=== PATIENT | male | born 1950 | race Caucasian/White ===

== ENCOUNTER 2016-05-13 17:57 | Observation (INO) | payer MEDICARE, OTHER ==
[2016-05-13] MEDS ORDERED: ASPIRIN 81 MG CHEWABLE TABLET PO ONE (18:51)
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
[2016-05-13 19:11] LABS: BASO % 1.1 % (0-6); EOS % 4.6 % (0-6); GRAN % 58.5 % (47-80); HEMATOCRIT 39.7 % (42.0-52.0); HEMOGLOBIN 12.6 gm/dl (14.0-18.0); LYMPH % 21.9 % (16-45); MEAN CELL VOLUME 77.5 fl (81-97); MEAN CORPUSCULAR HEMOGLOBIN 24.6 pg (27-33); MEAN CORPUSCULAR HGB CONC 31.7 g/dl (32-36); MEAN PLATELET VOLUME 10.5 fl (7.4-10.4); MONO % 13.9 % (0-9); PLATELET COUNT 356 K/uL (130-400); RED BLOOD COUNT 5.12 M/uL (4.40-5.70); RED CELL DISTRIBUTION WIDTH 17.5 % (11.5-14.5); WHITE BLOOD COUNT W/O DIFF 9.6 K/uL (4.2-12.2)
--- NOTE | 2016-05-13 19:20 | Emergency Department Record ---
History of Present Illness - General Chief Complaint: Chest Pain Stated Complaint: CRAMPS IN CHEST Time Seen by Provider: 05/13/16 18:30 Source: Patient Mode of Arrival: Ambulatory Limitations: No limitations - History of Present Illness Initial Comments: This patient arrived about 20 minutes prior to my shift beginning at 7 p.m. and was turned over to me by the day shift physician at shift change. The patient reports to me that he has a pulsating left anterior lower chest pain which is non-radiating and intermittent. He has had this on and off over the past several days, less than a week. Today is has occurred more frequently, lasted longer, and he is now more concerned about what is causing it . He as no nausea, diaphoresis, SOB, or lightheadedness/dizziness associated with it. Risks include elevated cholesterol, and a father who of an [place] in his early 60's. 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 He currently has no symptoms. He has never had an [place], PE, DVT, CVA or heart cath. He has had numerous stress tests, the most recent of which was more than a few years ago. MD Complaint: Chest pain Onset/Timin -: Days(s) Onset: During rest Pain Location: Left chest Pain Radiation: None Severity: Moderate Quality: Other Consistency: Intermittent Improves With: Nothing Worsens With: Nothing Treatments Prior to Arrival: None - Related Data Home Medications Medication Instructions Recorded Confirmed Last Taken Albuterol Sulfate [Proair Hfa] 1 - 2 puff IH DAILY PRN inhaler 06/10/15 Unknown Omeprazole 20 mg PO QAM 06/10/15 05/13/16 05/13/16 Previous Rx's Medication Instructions Recorded Albuterol Sulfate 0.083% [Neb] 2.5 mg INH RESP.Q4H.WA PRN #0 10/26/15 nebulization solution Fluticasone/Salmeterol 100/50 1 puff INH BID disk 10/26/15 [Advair 100/50] Allergies Allergy/AdvReac Type Severity Reaction Status Date / Time meloxicam [From Mobic] AdvReac Severe internal Verified 05/13/16 18:12 bleeding dicyclomine HCl [From Bentyl] AdvReac Intermediate nausea and Verified 05/13/16 18:12 vomiting levofloxacin [From Levaquin] AdvReac Intermediate nausea and Verified 05/13/16 18:12 vomiting propoxyphene napsylate AdvReac Intermediate nausea and Verified 05/13/16 18:12 [From Darvocet-N] vomiting simvastatin [From Zocor] AdvReac Intermediate muscle Verified 05/13/16 18:12 aches Travel Screening - Travel/Exposure Within Last 30 Days Have you traveled within the last 30 days?: No Review of Systems Constitutional: Reports: As per HPI. Denies: Chills, Fever, Malaise, Night sweats, Weakness, Weight change Eyes: Reports: As per HPI. Denies: Eye discharge, Eye pain, Photophobia, Vision change ENT: Reports: As per HPI. Denies: Congestion, Dental pain, Ear pain, Epistaxis , Hearing loss, Throat pain Respiratory: Reports: As per HPI. Denies: Cough, Dyspnea, Hemoptysis, Stridor, Wheezes Cardiovascular: Reports: As per HPI. Denies: Arrhythmia, Chest pain, Dyspnea on exertion, Edema, Murmurs, Orthopnea, Palpitations, Paroxysmal nocturnal dyspnea, Rheumatic Fever, Syncope Endocrine: Reports: As per HPI. Denies: Fatigue, Heat or cold intolerance, Polydipsia, Polyuria Gastrointestinal: Reports: As per HPI. Denies: Abdominal pain, Constipation, Diarrhea, Hematemesis, Hematochezia, Melena, Nausea, Vomiting Genitourinary: Reports: As per HPI. Denies: Dysuria, Frequency, Hematuria, Incontinence, Retention, Testicular pain, Testicular mass, Urgency Musculoskeletal: Reports: As per HPI. Denies: Arthralgia, Back pain, Gout, Joint swelling, Myalgia, Neck pain Skin: Reports: As per HPI. Denies: Bruising, Change in color, Change in hair/ nails, Lesions, Pruritus, Rash Neurological: Reports: As per HPI. Denies: Abnormal gait, Confusion, Headache, Numbness, Paresthesias, Seizure, Tingling, Tremors, Vertigo, Weakness Psychiatric: Reports: As per HPI. Denies: Anxiety, Auditory hallucinations, Depression, Homicidal thoughts, Suicidal thoughts, Visual hallucinations Hematological/Lymphatic: Reports: As per HPI. Denies: Anemia, Blood Clots, Easy bleeding, Easy bruising, Swollen glands Past Medical History - SOCIAL HISTORY Smoking Status: Former smoker Alcohol Use: Occassional Drug Use: None - RESPIRATORY Hx Respiratory Disorders: Yes Hx Asthma: Yes Hx COPD: Yes Hx Sleep Apnea: Yes - CARDIOVASCULAR Hx Cardio Disorders: Yes Hx Hypertension: Yes Comment:: high cholesterol - NEURO Hx Neuro Disorders: Yes Hx Dizziness: Yes - GI Hx GI Disorders: Yes Hx Diverticulitis: Yes Hx GI Bleed: Yes (2011/) Hx Reflux: Yes - Hx Genitourinary Disorders: Yes Hx Prostate Problems: Yes - ENDOCRINE Hx Endocrine Disorders: No - MUSCULOSKELETAL Hx Musculoskeletal Disorders: Yes Hx Arthritis: Yes - PSYCH Hx Psych Problems: No Comment:: doesnt like being i confining spaces - HEMATOLOGY/ONCOLOGY Hx Hematology/Oncology Disorders: Yes Hx Blood Transfusions: Yes (2011/) Comment:: pt states hx of internal bleeding Family Medical History Any Significant Family History?: Yes Hx Alcohol Use: Father Hx Diabetes: Mother Hx Heart Disease: Father Hx Liver Disease: Mother, Grandparents *Liver Comment: kendra, bile duct surgery Physical Exam - General General Appearance: Alert, Oriented x3, Cooperative, No acute distress Limitations: No limitations - Head Head exam: Normal inspection - Eye Eye exam: Normal appearance, PERRL Pupils: Normal accommodation - ENT ENT exam: Normal exam, Mucous membranes moist, Normal external ear exam, Normal orophraynx, TM's normal bilaterally Ear exam: Normal external inspection. negative: External canal tenderness Nasal Exam: Normal inspection. negative: Discharge, Sinus tenderness Mouth exam: Normal external inspection, Tongue normal Teeth exam: Normal inspection. negative: Dental caries Throat exam: Normal inspection. negative: Tonsillar erythema, Tonsillar exudate - Neck Neck exam: Normal inspection, Full ROM. negative: Tenderness - Respiratory Respiratory exam: Normal lung sounds bilaterally. negative: Accessory muscle use, Chest wall tenderness, Respiratory distress - Cardiovascular Cardiovascular Exam: Regular rate, Normal rhythm, Normal heart sounds - GI/Abdominal GI/Abdominal exam: Soft, Normal bowel sounds. negative: Tenderness - Rectal Rectal exam: Deferred - exam: Deferred - Extremities Extremities exam: Normal inspection, Full ROM, Normal capillary refill. negative: Calf tenderness, Pedal edema, Tenderness - Back Back exam: Reports: Normal inspection, Full ROM. Denies: Muscle spasm, Rash noted, Tenderness - Neurological Neurological exam: Alert, Normal gait, Oriented X3, Reflexes normal - Psychiatric Psychiatric exam: Normal affect, Normal mood - Skin Skin exam: Dry, Intact, Normal color, Warm Course Vital Signs 05/13/16 18:05 Temperature 98.1 F Pulse Rate 85 Respiratory 18 Rate Blood Pressure 157/92 Pulse Ox 99 - Reevaluation(s) Reevaluation #1: The patient has had not further symptoms. His labs work is all normal except for a Hg of 12.6 which the patient sates is chronic as he has been told he is anemic. He states he would be able to perform a stress test on a treadmill if needed. He understands he is to get his blood draw for repeat enzymes repeated in 4 hours. 05/13/16 20:01 05/13/16 20:02 Reevaluation #2: The patient spoke on the phone with his . They both prefer he get a stress test in the morning since [facility] is here. Will admit patient to / Dyan/ Yudelka with [facility] consult for morning. The patient states he had one episode of "pressure" which is fluttery and lasted about 2-3 seconds. Nurse earlier noted that these symptoms were NOT associated with an arrhythmia on the monitor. 05/13/16 21:29 05/13/16 21:34 Medical Decision Making - Management Options MDM Management: Additional Work-up Planned (e.g. ADM/Transfer/OP Study) - Data Complexity MDM Data: Labs Ordered and/or Reviewed, X-Ray Ordered and/or Reviewed (CXR: No acute abnormality per radiologist.), EKG Ordered and/or Reviewed - Lab Data Result diagrams: 05/13/16 19:07 05/13/16 19:07 Lab Results 05/13/16 Range/Units 19:07 WBC 9.6 (4.2-12.2) K/uL RBC 5.12 (4.40-5.70) M/uL Hgb 12.6 L (14.0-18.0) gm/dl Hct 39.7 L (42.0-52.0) % MCV 77.5 L (81-97) fl MCH 24.6 L (27-33) pg MCHC 31.7 L (32-36) g/dl RDW 17.5 H (11.5-14.5) % Plt Count 356 (130-400) K/uL MPV 10.5 H (7.4-10.4) fl Gran % 58.5 (47-80) % Lymphocytes % 21.9 (16-45) % Monocytes % 13.9 H (0-9) % Eosinophils % 4.6 (0-6) % Basophils % 1.1 (0-6) % - EKG Data -: EKG Interpreted by Me EKG: No Acute Changes Disposition Disposition: Admit Clinical Impression: Chest pain Qualifiers: Chest pain type: unspecified Qualified Code(s): R07.9 - Chest pain, unspecified Disposition: Still a Patient at [facility] Decision to Admit: Admit from ER Decision to Admit Date: 05/13/16 Decision to Admit Time: 21:32 Accepting Physician: /Yudelka Condition: (1) Good Forms: Patient Portal Access
[2016-05-13 19:23] LABS: ANION GAP 13.9 (7-16); BLOOD UREA NITROGEN 15 mg/dL (9-20); CARBON DIOXIDE 25.1 mmol/L (22-30); CREATINE PHOSPHOKINASE 100 U/L (55-170); CREATININE 0.8 mg/dL (0.66-1.25); EST GLOMERULAR FILTRATION RATE > 60 ml/min; GLUCOSE,RANDOM 92 mg/dL (70-110)
[2016-05-13 19:35] LABS: CKMB 1.7 ug/L (0-6); TROPONIN I < 0.012 ng/mL (0.00-0.034)
[2016-05-13] MEDS ORDERED: LOVASTATIN 20 MG PO SCH (22:39)
[2016-05-13] MEDS ORDERED: AL HYDROX/MAG HYDROX 30ML UD PO PRN (22:39)
[2016-05-13] MEDS ORDERED: ALBUTEROL SULFATE (0.083%) 2.5 MG/3 ML NEB INH PRN (22:39)
[2016-05-13] MEDS ORDERED: NITROGLYCERIN 0.4MG SL TABLET #25 BTL SL PRN (22:39)
[2016-05-13] MEDS ORDERED: ACETAMINOPHEN 500 MG TABLET PO PRN (22:39)
[2016-05-13] MEDS ORDERED: FLU VAC QS 2016-17 (INPT, 3YR+) 60MCG/0.5ML IM ONE (23:14)
[2016-05-14] MEDS: FLUTICASONE/SALMETEROL 100/50 DISKUS INH SCH ×2 (02:05→06:00)
--- NOTE | 2016-05-14 05:43 | History & Physical ---
History of Present Illness - Date of Service Date of Service for History & Physical: 05/14/16 - History of Present Illness Admitting Diagnosis: Chest pain History of Present Illness: 65yo male with CC of chest pain/fluttering. He has a history of COPD, LICO, GERD , HLD, diverticulosis and diverticulitis, bowel obstruction, and GI bleed 2/2 NSAID use requiring blood transfusion. Patient c/o of chest fluttering. location is mainly on the left of his chest. This has been occurring on and off for a few weeks, though became more noticeable yesterday. No aggravating factors. Does not find this to be associated with exertion or eating. Alleviated on its one. Associated symptoms include generalized muscle cramping. While in the ER VS relatively stable. CBC, CMP stable. TSH 8.03, CE's negative x 2. EKG: sinus rhythm. CXR: NAP. According to ER documentation, patient reported to the nurse one episode of "fluttering" that lasted 2-3 seconds. there were no associated EKG changes on the monitor. Patient preferred to stay for cardiac work up and was admitted for further medical management. This morning, patient is sitting up in bed comfortably. He denies any CP, SOB, ELVA, back/jaw or shoulder pain, cough, lightheadedness, dizziness, abd pain, change in bowel habits, n/v, fever, chills or diaphoresis. Denies h/o GA, CVA or DVT. 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 Previous smoker, quit in his 20s. Father with h/o GA in his 60s. Personal h/o high cholesterol. No previous cardiac work up. PCP: Dr. Iyer Travel Screening - Travel/Exposure Within Last 30 Days Have you traveled within the last 30 days?: No - Travel/Exposure Within Last Year Have you traveled outside the [place] in the last year?: No - Additonal Travel Details Have you been exposed to anyone with a communicable illness?: Yes Exposure Details:: "everyone at work is passing something around" - Travel Symptoms Symptom Screening: None Review of Systems Constitutional: Reports: As per HPI. Denies: Chills, Fever, Malaise, Night sweats, Weakness, Weight change Eyes: Reports: As per HPI. Denies: Eye discharge, Eye pain, Photophobia, Vision change ENT: Reports: As per HPI. Denies: Congestion, Dental pain, Ear pain, Epistaxis , Hearing loss, Throat pain Respiratory: Reports: As per HPI. Denies: Cough, Dyspnea, Hemoptysis, Stridor, Wheezes Cardiovascular: Reports: As per HPI. Denies: Arrhythmia, Chest pain, Dyspnea on exertion, Edema, Murmurs, Orthopnea, Palpitations, Paroxysmal nocturnal dyspnea, Rheumatic Fever, Syncope Endocrine: Reports: As per HPI. Denies: Fatigue, Heat or cold intolerance, Polydipsia, Polyuria Gastrointestinal: Reports: As per HPI. Denies: Abdominal pain, Constipation, Diarrhea, Hematemesis, Hematochezia, Melena, Nausea, Vomiting Genitourinary: Reports: As per HPI. Denies: Dysuria, Frequency, Hematuria, Incontinence, Retention, Testicular pain, Testicular mass, Urgency Musculoskeletal: Reports: As per HPI. Denies: Arthralgia, Back pain, Gout, Joint swelling, Myalgia, Neck pain Skin: Reports: As per HPI. Denies: Bruising, Change in color, Change in hair/ nails, Lesions, Pruritus, Rash Neurological: Reports: As per HPI. Denies: Abnormal gait, Confusion, Headache, Numbness, Paresthesias, Seizure, Tingling, Tremors, Vertigo, Weakness Psychiatric: Reports: As per HPI. Denies: Anxiety, Auditory hallucinations, Depression, Homicidal thoughts, Suicidal thoughts, Visual hallucinations Hematological/Lymphatic: Reports: As per HPI. Denies: Anemia, Blood Clots, Easy bleeding, Easy bruising, Swollen glands Past Medical History - SOCIAL HISTORY Smoking Status: Former smoker - RESPIRATORY Hx Respiratory Disorders: Yes Hx Asthma: Yes Hx COPD: Yes Hx Sleep Apnea: Yes - CARDIOVASCULAR Hx Cardio Disorders: Yes Hx Hypertension: Yes Comment:: high cholesterol - NEURO Hx Neuro Disorders: Yes Hx Dizziness: Yes - GI Hx GI Disorders: Yes Hx Diverticulitis: Yes Hx GI Bleed: Yes (2011 r/t ) Hx Reflux: Yes - Hx Genitourinary Disorders: Yes Hx Prostate Problems: Yes - ENDOCRINE Hx Endocrine Disorders: No - MUSCULOSKELETAL Hx Musculoskeletal Disorders: Yes Hx Arthritis: Yes - PSYCH Hx Psych Problems: No Comment:: doesnt like being i confining spaces - HEMATOLOGY/ONCOLOGY Hx Hematology/Oncology Disorders: Yes Hx Blood Transfusions: Yes (2011 r/t ) Comment:: pt states hx of internal bleeding Family Medical History Any Significant Family History?: Yes Hx Alcohol Use: Father Hx Diabetes: Mother Hx Heart Disease: Father Hx Liver Disease: Mother, Grandparents *Liver Comment: kendra, bile duct surgery H&P Meds/Allergies - Allergies Allergies: Allergies Allergy/AdvReac Type Severity Reaction Status Date / Time meloxicam [From Mobic] AdvReac Severe internal Verified 05/13/16 18:12 bleeding dicyclomine HCl [From Bentyl] AdvReac Intermediate nausea and Verified 05/13/16 18:12 vomiting levofloxacin [From Levaquin] AdvReac Intermediate nausea and Verified 05/13/16 18:12 vomiting propoxyphene napsylate AdvReac Intermediate nausea and Verified 05/13/16 18:12 [From Darvocet-N] vomiting simvastatin [From Zocor] AdvReac Intermediate muscle Verified 05/13/16 18:12 aches - Home Medications Home Medications Medication Instructions Recorded Confirmed Last Taken Albuterol Sulfate [Proair Hfa] 1 - 2 puff IH DAILY PRN inhaler 06/10/15 Unknown Omeprazole 20 mg PO QAM 06/10/15 05/13/16 05/13/16 Previous Rx's Medication Instructions Recorded Albuterol Sulfate 0.083% [Neb] 2.5 mg INH RESP.Q4H.WA PRN #0 10/26/15 nebulization solution Fluticasone/Salmeterol 100/50 1 puff INH BID disk 10/26/15 [Advair 100/50] - Active Medications Active Medications: Current Medications Acetaminophen (Tylenol 500mg Tab) 500 mg PO Q6H PRN PRN Reason: PAIN/TEMP Al Hydroxide/Mg Hydroxide (Maalox) 30 ml PO Q4H PRN PRN Reason: GI UPSET Albuterol Sulfate () 2.5 mg INH RESP.Q4H.WA PRN PRN Reason: DIFFICULTY IN BREATHING Aspirin (Ecotrin (Ec)) 81 mg PO DAILY [facility] Nitroglycerin (Nitrostat 0.4mg) 0.4 mg SL Q5MIN PRN PRN Reason: CHEST PAIN Stop: 05/15/16 22:40 Non-Formulary Medication (Lovastatin [Lovastatin]) 20 mg PO QHS JOSE J Last Admin: 05/14/16 02:06 Dose: Not Given Non-Formulary Medication (Omeprazole [Omeprazole]) 20 mg PO QAM [facility] Fluticasone/Salmeterol (Advair 100/50) 1 puff INH BID [facility] Last Admin: 05/14/16 02:05 Dose: Not Given Physical Exam - Vital Signs Vital Signs: Vital Signs - Last 24 Hrs Temp Pulse Resp BP Pulse Ox 05/14/16 01:32 20 05/13/16 22:35 97.7 F 74 18 142/94 100 - General General Appearance: Alert, Oriented x3, Cooperative, No acute distress Limitations: No limitations - Head Head exam: Normal inspection - Eye Eye exam: Normal appearance, PERRL Pupils: Normal accommodation - ENT ENT exam: Normal exam, Mucous membranes moist, Normal external ear exam, Normal orophraynx, TM's normal bilaterally Ear exam: Normal external inspection. negative: External canal tenderness Nasal Exam: Normal inspection. negative: Discharge, Sinus tenderness Mouth exam: Normal external inspection, Tongue normal Teeth exam: Normal inspection. negative: Dental caries Throat exam: Normal inspection. negative: Tonsillar erythema, Tonsillar exudate - Neck Neck exam: Normal inspection, Full ROM. negative: Tenderness - Respiratory Respiratory exam: Normal lung sounds bilaterally. negative: Accessory muscle use, Chest wall tenderness, Respiratory distress - Cardiovascular Cardiovascular Exam: Regular rate, Normal rhythm, Normal heart sounds - GI/Abdominal GI/Abdominal exam: Soft, Normal bowel sounds. negative: Tenderness - Rectal Rectal exam: Deferred - exam: Deferred - Extremities Extremities exam: Normal inspection, Full ROM, Normal capillary refill. negative: Calf tenderness, Pedal edema, Tenderness - Back Back exam: Reports: Normal inspection, Full ROM. Denies: Muscle spasm, Rash noted, Tenderness - Neurological Neurological exam: Alert, Normal gait, Oriented X3, Reflexes normal - Psychiatric Psychiatric exam: Normal affect, Normal mood - Skin Skin exam: Dry, Intact, Normal color, Warm Results - Labs Result Diagrams: 05/13/16 19:07 05/13/16 19:07 Labs Last 24 Hours: Laboratory Results - last 24 hr 05/13/16 05/13/16 23:00 23:00 CK-MB (CK-2) 1.4 Troponin I < 0.012 VTE H&P Assessment - Risk for VTE Risk for VTE: Yes Risk Level: Low Risk Assessment Date: 05/14/16 Risk Assessment Time: 10:00 VTE Orders Placed or Will Be Placed: No VTE Reason for No Prophylaxis: Not Indicated (patient ambulating the room) Plan - Detailed Diagnosis and Plan (1) Chest pain Current Visit: Yes Status: Acute Qualifiers: Chest pain type: unspecified Qualified Code(s): R07.9 - Chest pain, unspecified Base Code: R07.9 - CHEST PAIN, UNSPECIFIED Comment: 05/14/16: After speaking with patient he denies chest pain. He has been experiencing chest "fluttering" on and off for a few weeks. EKG: sinus rhythma. CXR: NAP. CE's negative x 3. Labs essentially unremarkable aside from elevated TSH. Risk factors include high cholesterol and father's h/o GA in his 60's. Cardoilogy has been consulted to see patient. Plan for ECHO and exercised stress test today. Will continue to monitor for any pain, sob, elva, cough. VS Q4 hours and telemetry ordered. (2) DVT prophylaxis Current Visit: No Status: Acute Base Code: [id number] - Comment: 05/14/16 Patient at low risk with age. patient ambulating the room and I suspect will d/c later today. Anticoagulation appears more of a risk than beneficial at this time. (3) Full code status Current Visit: No Status: Acute Base Code: Z78.9 - OTHER SPECIFIED HEALTH STATUS Comment: 05/14/16: Patient remains full code (4) Elevated TSH Current Visit: Yes Status: Acute Base Code: R94.6 - ABNORMAL RESULTS OF THYROID FUNCTION STUDIES Comment: 05/14/16: TSH elevated at 8.03. Will start him on 50 mcg of levothyroxine and follow up with him regarding this as outpatient.
--- NOTE | 2016-05-14 07:27 | RADIOLOGY REPORT ---
EXAM: CHEST, TWO VIEWS HISTORY: CHEST PAIN AND HEART FLUTTERS. TECHNIQUE: PA and lateral upright views of the chest were obtained. Comparison: Previous abdominal CT scan dated 10/24/15. FINDINGS: The heart is normal in size. The mediastinum and pulmonary vasculature are normal. There are no acute infiltrates or effusions. There is no pneumothorax. Degenerative changes are present within the spine. IMPRESSION: NO ACUTE CHEST PATHOLOGY. JOB NUMBER: [id number] MTDD
[2016-05-14 07:28] LABS: CKMB 1.1 ug/L (0-6); TROPONIN I < 0.012 ng/mL (0.00-0.034)
[2016-05-14] MEDS ORDERED: ASPIRIN 81 MG TABEC PO SCH (10:00)
[2016-05-14] MEDS ORDERED: PANTOPRAZOLE SODIUM 40 MG TABLET PO SCH (10:00)
--- NOTE | 2016-05-14 13:02 | Discharge Summary ---
Providers Discharge Summary Date: 05/14/16 Date of admission: 05/13/16 22:34 Expected Date of Discharge: 05/14/16 Attending physician: ABBY FLORES Primary care physician: ABBY FLORES Physical Exam - Vital Signs Vital Signs: Vital Signs - Last 24 Hrs Temp Pulse Pulse Resp BP Pulse Ox 05/14/16 12:04 90 05/14/16 09:00 94 H 05/14/16 08:00 97.5 F L 61 18 123/77 100 05/14/16 06:42 68 20 98 05/14/16 01:32 20 05/13/16 22:35 97.7 F 74 18 142/94 100 - General General Appearance: Alert, Oriented x3, Cooperative, No acute distress Limitations: No limitations - Head Head exam: Normal inspection - Eye Eye exam: Normal appearance, PERRL Pupils: Normal accommodation - ENT ENT exam: Normal exam, Mucous membranes moist, Normal external ear exam, Normal orophraynx, TM's normal bilaterally Ear exam: Normal external inspection. negative: External canal tenderness Nasal Exam: Normal inspection. negative: Discharge, Sinus tenderness Mouth exam: Normal external inspection, Tongue normal Teeth exam: Normal inspection. negative: Dental caries Throat exam: Normal inspection. negative: Tonsillar erythema, Tonsillar exudate - Neck Neck exam: Normal inspection, Full ROM. negative: Tenderness - Respiratory Respiratory exam: Normal lung sounds bilaterally. negative: Accessory muscle use, Chest wall tenderness, Respiratory distress - Cardiovascular Cardiovascular Exam: Regular rate, Normal rhythm, Normal heart sounds - GI/Abdominal GI/Abdominal exam: Soft, Normal bowel sounds. negative: Tenderness - Rectal Rectal exam: Deferred - exam: Deferred - Extremities Extremities exam: Normal inspection, Full ROM, Normal capillary refill. negative: Calf tenderness, Pedal edema, Tenderness - Back Back exam: Reports: Normal inspection, Full ROM. Denies: Muscle spasm, Rash noted, Tenderness - Neurological Neurological exam: Alert, Normal gait, Oriented X3, Reflexes normal - Psychiatric Psychiatric exam: Normal affect, Normal mood - Skin Skin exam: Dry, Intact, Normal color, Warm Hospitalization - Hospitalization Admission Diagnosis: Chest pain - Problem List/Discharge Diagnosis (1) Chest pain Current Visit: Yes Status: Acute Discharge Diagnosis: Chest pain type: unspecified Qualified Code(s): R07.9 - Chest pain, unspecified Base Code: R07.9 - CHEST PAIN, UNSPECIFIED Comment: 05/14/16: cardiac vs. GI vs. anxiety vs. hormone vs. other? EKG: NSR. CE negative x 3. ECHO: EF of 75%. Unremarkable stress test per Dr. Schmidt. He's set up for 30 day holter monitor on the at 1045 with [employer]. He will see me next week as stated below. he agree's to return in the mean time re any new or worsening symptoms such as CP, sob, elva, weakness, fever or chills. (2) Full code status Current Visit: No Status: Acute Base Code: Z78.9 - OTHER SPECIFIED HEALTH STATUS Comment: 05/14/16: Patient remains full code (3) Elevated TSH Current Visit: Yes Status: Acute Base Code: R94.6 - ABNORMAL RESULTS OF THYROID FUNCTION STUDIES Comment: 05/14/16: TSH elevated at 8.03. Will start him on 50 mcg of levothyroxine and follow up with him regarding this as outpatient. He has a scheduled visit with me Tuesday05/18/16 at 1520. He agree's to return to the ER re any new or worsening symptoms. - Hospitalization Course Hospital Course: 65yo male with CC of chest pain/fluttering. He has a history of COPD, LICO, GERD , HLD, diverticulosis and diverticulitis, bowel obstruction, and GI bleed 2/2 NSAID use requiring blood transfusion. Patient c/o of chest fluttering. location is mainly on the left of his chest. This has been occurring on and off for a few weeks, though became more noticeable yesterday. No aggravating factors. Does not find this to be associated with exertion or eating. Alleviated on its one. Associated symptoms include generalized muscle cramping. While in the ER VS relatively stable. CBC, CMP stable. TSH 8.03, CE's negative x 2. EKG: sinus rhythm. CXR: NAP. According to ER documentation, patient reported to the nurse one episode of "fluttering" that lasted 2-3 seconds. there were no associated EKG changes on the monitor. Patient preferred to stay for cardiac work up and was admitted for further medical management. This morning, patient is sitting up in bed comfortably. He denies any CP, SOB, ELVA, back/jaw or shoulder pain, cough, lightheadedness, dizziness, abd pain, change in bowel habits, n/v, fever, chills or diaphoresis. Denies h/o MA, CVA or DVT. 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 Previous smoker, quit in his 20s. Father with h/o MA in his 60s. Personal h/o high cholesterol. No previous cardiac work up. PCP: Dr. Flores 05/14/16: 1300- no CP, sob, fever, chills, n/v, abd pain, weakness, or lightheadedness. Has had occasional left chest fluttering since he's been here in the hospital. ECHO: borderline LV hypertrophy, EF 75% Stress test unremarkable per Dr. Schmidt Appt for 30 day holter monitor scheduled and patient made aware of date/time. Procedures: Cardiology Procedures 05/14/16 11:15 Stress EKG/STD Treadmill NOW Condition at Discharge: (1) Good Discharge Medications - Discharge Medications Prescriptions: Fluticasone/Salmeterol 100/50 [Advair 100/50] 1 puff INH BID #1 disk Levothyroxine Sodium [Synthroid] 50 mcg PO DAILY #30 tablet Home Medications: Ambulatory Orders Albuterol Sulfate [Proair Hfa] 1 - 2 puff IH DAILY PRN inhaler 06/10/15 [Last Taken Unknown] Omeprazole 20 mg PO QAM 06/10/15 [Last Taken 05/13/16] Albuterol Sulfate 0.083% [Neb] 2.5 mg INH RESP.Q4H.WA PRN #0 nebulization solution 10/26/15 [Last Taken Unknown] Fluticasone/Salmeterol 100/50 [Advair 100/50] 1 puff INH BID #1 disk 05/14/16 [ Last Taken Unknown] Levothyroxine Sodium [Synthroid] 50 mcg PO DAILY #30 tablet 05/14/16 [Last Taken Unknown] Discharge Plan - Discharge Instructions Activity at Discharge: Increase Activity as Tolerated Diet at Discharge: Regular Diet Instructions: Palpitations (DC), Hyperthyroidism (DC) Additional Instructions: Follow up with [facility] May 19, 1045am- [address], [address] Follow up with Yudelka CARIAS at [facility] May 18, 2:00pm
--- NOTE | 2016-05-14 15:42 | Stress Test Report ---
DATE OF TEST: 05/14/16 INDICATION: PALPITATIONS. BASELINE EKG: Sinus rhythm. Normal axis. Nonspecific ST/T wave changes. Ventricular rate 93. P-R interval 152 milliseconds. QRS 76 milliseconds. QT corrected 415 milliseconds. Resting blood pressure was 145/85. DESCRIPTION: The patient exercised on a motorized treadmill for 7 minutes and 18 seconds achieving a peak MET level of approximately 8 METs. Peak heart rate was 150 beats per minute, which was greater than 85% of the maximum age predicted heart rate. Peak blood pressure was 180/85. Continuous ECG monitoring revealed no EKG changes that met diagnostic criteria for ischemia. There were no significant ventricular atrial arrhythmias identified. The patient had no complaints of chest discomfort during exercise or in recovery. SUMMARY: 1. NEGATIVE EXERCISE STRESS TEST TO APPROXIMATELY 8 METS. 2. NO CHEST DISCOMFORT. 3. NO SIGNIFICANT ARRHYTHMIAS. 4. CLINICAL CORRELATION RECOMMENDED. Joel Sullivan D.O. Date & Time JOB NUMBER: [id number] MTDD
--- NOTE | 2016-05-14 15:55 | Medical Records Consult ---
CARDIOLOGY CONSULTATION INDICATION: Chest pain. Needs stress test per emergency department physician, Dr. Marla Lu. HISTORY OF PRESENTING ILLNESS: This is a 65-year-old male who presented to [facility] emergency department complaining of palpitations. He states he absolutely denies any chest discomfort of any kind. He is not sure where the emergency department physician obtained that information. He was just watching television comfortably when he noticed fluttering in his chest. He had never had this before, and so he became concerned and presented to the emergency department. He has a history of chronic obstructive pulmonary disease, obstructive sleep apnea, gastroesophageal reflux disease, diverticulosis, and bowel obstruction. He had a GI bleed in May of last year for which he required blood transfusions secondary to nonsteroidal anti- inflammatory use per notes. The patient states that he is very active. During his workday he walks long distances up and down stairs with no chest pain. He does notice a little shortness of breath which he attributes to his chronic obstructive pulmonary disease. It has been long-standing and has not been worsening in severity. PAST MEDICAL HISTORY: Chronic obstructive pulmonary disease, obstructive sleep apnea, gastroesophageal reflux disease, hyperlipidemia, diverticulosis, diverticulitis, bowel obstruction, GI bleed. ALLERGIES: Mobic causes internal bleeding. Bentyl causes nausea and vomiting. Levaquin causes nausea and vomiting. Darvocet causes nausea and vomiting. Zocor causes muscle aches. HOME MEDICATIONS: Albuterol sulfate 2.5 mg inhaler as directed, omeprazole 20 mg every morning, Advair inhaler one puff b.i.d. disc. FAMILY HISTORY: He denies any history of premature coronary artery disease. His father has heart disease. SOCIAL HISTORY: He quit smoking at age 21. No illicit drug use. He denies alcohol. REVIEW OF SYSTEMS: General: No fevers, chills, or night sweats. HEENT: No acute hearing or vision changes. Cardiovascular: Palpitations. No orthopnea or paroxysmal nocturnal dyspnea. No claudication symptoms. No syncope. Pulmonary: Positive for chronic obstructive pulmonary disease. Chronic shortness of breath. Gastrointestinal: Positive for GI bleed, diverticulitis, diverticulosis, bowel obstruction. He denies any current GI symptoms. Genitourinary: No dysuria or hematuria. Endocrine: Denies a diabetes history. No thyroid history. Hemoccult: No unexplained bruising or bleeding. A history of a GI bleed in the past due to nonsteroidal anti-inflammatory drug use. Neurologic: He denies any syncope, seizures, numbness, or tingling. Musculoskeletal: No joint pain or myalgias. PHYSICAL EXAMINATION: Vital Signs: See electronic medical record. Most recent vital signs documented were in the emergency department notes. Blood pressure was 142/94, temperature 97.7, pulse 74, respirations 18. General: The patient is alert and in no apparent distress. Resting comfortably in bed. Answers questions appropriately. HEENT: Normocephalic, atraumatic. Neck: Supple. No jugular venous distension, no carotid bruit. Cardiovascular: Regular rhythm. No murmurs, rubs, or gallops. Pulmonary: Clear to auscultation. No accessory muscle use. Abdomen: Soft. Positive bowel sounds. Probable ventral hernia noted. Bowel sounds within normal limits. No bruit appreciated. Extremities: No edema. Radial and pedal pulses are grossly intact. Neuromuscular: Speech is clear. Moves all extremities on command. LABORATORY DATA: See electronic medical record. CPKMB was 1.4. Troponin less than 0.012. Sodium was 138, potassium 3.9, BUN 15, creatinine 0.8. Hemoglobin 12.6, platelets 356, white blood cell count 9.6. His TSH was elevated per the emergency department note. I do not have this available for review. DIAGNOSTIC DATA: The ECG shows a sinus rhythm, nonspecific ST T-wave changes, artifact. ASSESSMENT AND PLAN: 1. Palpitations, unclear etiology. We will do a regular stress test, echocardiogram, event recorder. 2. Elevated TSH. Management per admitting service. 3. I would recommend checking a magnesium level given his long-term use of proton pump inhibitors to check for hypomagnesemia. Replace if low. Can follow up in cardiology clinic if stress test echo is within normal limits. Joel Sullivan D.O. Date Time JOB NUMBER: [id number] MTDD
[2016-05-14] MEDS ORDERED: SIMVASTATIN 10MG TABLET PO SCH (22:00)
== END 2016-05-14 16:39 | disposition home or self-care (01) ==
LOC: ER 17:57 → MEDSURG 22:34
PROVIDERS: ADMIT Family Medicine; ATTEND Family Medicine
DX: R07.9 Chest pain, unspecified (principal); Z78.9 Other specified health status; R94.6 Abnormal results of thyroid function studies; J44.9 Chronic obstructive pulmonary disease, unspecified; E78.00 Pure hypercholesterolemia, unspecified; I10 Essential (primary) hypertension
CPT/HCPCS: 99285 ×2; 82550; 83735; 85025; 82553 ×2; 84484 ×2; 80048; 84443; 85379; 71020; 93005; 93017; 93010; 90686; G0378 ×2; 99220

== ENCOUNTER 2016-06-08 18:15 | Emergency (ER) | payer MEDICARE, OTHER ==
[2016-06-08] MEDS ORDERED: 0.9 % SODIUM CHLORIDE 1,000 ML BAG IV ONE (18:41)
[2016-06-08] MEDS ORDERED: IPRATROPIUM/ALBUTEROL (0.5MG/3MG) NEB INH ONE (18:42)
--- NOTE | 2016-06-08 18:47 | Emergency Department Record ---
History of Present Illness - General Chief complaint: Allergic Reaction Stated complaint: REACTION TO MEDS Time Seen by Provider: 06/08/16 18:34 Source: Patient, Family Mode of Arrival: Ambulatory Limitations: No limitations - History of Present Illness Initial Comments: 66 yo male presents with a concern about a possible medication reaction. He was seen in follow up for recent cough, congestion wheezing due to COPD. He was started on several new medications today. Starting at 1pm he began to feel bloated in the abdomen. He was given Prednisone, Steroid injection, Levaquin ( He has listed Prednisone and Levaquin as allergies). He had a very similar reaction of bloating with Levaquin in the past. No vomiting. He had two bowel movements earlier today. He just started a nebulizer today and steroids. No hives. No vomiting. No diarrhea. Denies any history of abdominal surgery. MD Complaint: Other -: Hour(s) (6) Exposure: Unknown, Medication Symptoms: Other (Bloating) Severity: Moderate Treatment Prior to Arrival: Bronchodilator, Steroids, Other (Antibioitcs) Previous Allergy History: None - Related Data Home Medications Medication Instructions Recorded Confirmed Last Taken Omeprazole 20 mg PO QAM 06/10/15 06/08/16 05/13/16 Mometasone Furoate [Nasonex] 2 spray NS QD spray 05/18/16 06/08/16 Unknown Loratadine/Pseudoephedrine 1 tab PO QD tab 05/31/16 06/08/16 Unknown [Claritin-D 24 Hour Tablet] Pseudoephedrine HCl [Sudafed 240 mg PO DAILY tab 05/31/16 06/08/16 Unknown 24-Hour] Previous Rx's Medication Instructions Recorded Fluticasone/Salmeterol 100/50 1 puff INH BID #1 disk 05/14/16 [Advair 100/50] Amoxicillin/Potassium Clav 1 tab PO BID #14 tab 06/08/16 [Augmentin 875-125 Tablet] Allergies Allergy/AdvReac Type Severity Reaction Status Date / Time hyoscyamine sulfate Allergy Unknown PT UNSURE Unverified 06/08/16 07:28 [From Levsinex] OF REACTION prednisone Allergy Unknown PT UNSURE Unverified 06/08/16 07:28 OF REACTION meloxicam [From Mobic] AdvReac Severe internal Unverified 06/08/16 07:28 bleeding dicyclomine HCl [From Bentyl] AdvReac Intermediate nausea and Unverified 07:28 vomiting levofloxacin [From Levaquin] AdvReac Intermediate nausea and Unverified 07:28 vomiting propoxyphene napsylate AdvReac Intermediate nausea and Unverified 06/08/16 07:28 [From Darvocet-N] vomiting simvastatin [From Zocor] AdvReac Intermediate muscle Unverified 06/08/16 07:28 aches Review of Systems Constitutional: Denies: Chills, Fever, Malaise, Night sweats, Weakness Eyes: Denies: Eye discharge, Eye pain, Photophobia, Vision change ENT: Reports: Congestion Respiratory: Reports: Cough, Dyspnea, Wheezes. Denies: Hemoptysis Cardiovascular: Denies: Chest pain, Palpitations, Syncope Endocrine: Denies: Fatigue Gastrointestinal: Reports: Abdominal pain (in the form of feeling bloated). Denies: Diarrhea, Nausea, Vomiting Genitourinary: Denies: Frequency Musculoskeletal: Denies: Arthralgia, Back pain, Myalgia Skin: Denies: Bruising, Change in color Neurological: Denies: Confusion, Headache Psychiatric: Denies: Anxiety Hematological/Lymphatic: Denies: Blood Clots, Easy bleeding, Easy bruising Past Medical History - SOCIAL HISTORY Smoking Status: Former smoker - RESPIRATORY Hx Respiratory Disorders: Yes Hx Asthma: Yes Hx COPD: Yes Hx Sleep Apnea: Yes - CARDIOVASCULAR Hx Cardio Disorders: Yes Hx Hypertension: Yes Comment:: high cholesterol - NEURO Hx Neuro Disorders: Yes Hx Dizziness: Yes - GI Hx GI Disorders: Yes Hx Diverticulitis: Yes Hx GI Bleed: Yes (2011 r/t ) Hx Reflux: Yes - Hx Genitourinary Disorders: Yes Hx Prostate Problems: Yes - ENDOCRINE Hx Endocrine Disorders: No - MUSCULOSKELETAL Hx Musculoskeletal Disorders: Yes Hx Arthritis: Yes - PSYCH Hx Psych Problems: No Comment:: doesnt like being i confining spaces - HEMATOLOGY/ONCOLOGY Hx Hematology/Oncology Disorders: Yes Hx Blood Transfusions: Yes (2011 r/t ) Comment:: pt states hx of internal bleeding Family Medical History Hx Alcohol Use: Father Hx Diabetes: Mother Hx Heart Disease: Father Hx Liver Disease: Mother, Grandparents *Liver Comment: kendra, bile duct surgery Physical Exam - General General Appearance: Alert, Oriented x3, Cooperative, No acute distress Limitations: No limitations - Head Head exam: Normal inspection - Eye Eye exam: Normal appearance, PERRL. negative: Conjunctival injection - ENT ENT exam: Normal exam, Mucous membranes moist, Normal external ear exam, Normal orophraynx Ear exam: Normal external inspection. negative: External canal tenderness Nasal Exam: Normal inspection. negative: Discharge, Sinus tenderness Mouth exam: Normal external inspection, Tongue normal Teeth exam: Normal inspection. negative: Dental caries Throat exam: Normal inspection. negative: Tonsillar erythema, Tonsillar exudate - Neck Neck exam: Normal inspection, Full ROM. negative: Tenderness - Respiratory Respiratory exam: Decreased breath sounds, Rhonchi, Wheezes (mild). negative: Respiratory distress - Cardiovascular Cardiovascular Exam: Regular rate, Normal rhythm, Tachycardia Peripheral Pulses: 2+: Radial (R), Radial (L) - GI/Abdominal GI/Abdominal exam: Soft, Normal bowel sounds. negative: Diminished bowel sounds , Distended, Guarding, Hyperactive bowel sounds, Hypoactive bowel sounds, Rebound, Rigid, Tenderness - Rectal Rectal exam: Deferred - exam: Deferred - Extremities Extremities exam: Normal inspection, Full ROM, Normal capillary refill. negative: Tenderness - Back Back exam: Reports: Normal inspection, Full ROM. Denies: Muscle spasm, Rash noted, Tenderness - Neurological Neurological exam: Alert, Normal gait, Oriented X3 - Psychiatric Psychiatric exam: Normal affect, Normal mood. negative: Agitated, Anxious - Skin Skin exam: Dry, Intact, Normal color, Warm Course - Reevaluation(s) Reevaluation #1: The patient was seen and examined He has mild expiratory wheeze He has felt bloated since 1pm 06/08/16 18:47 Reevaluation #2: The labs were reviewed No acute changes of the CBC Minimal changes of the ALT, Alk Phos 06/08/16 19:33 Reevaluation #3: the results were reviewed with the patient no acute changes on the AAS We discussed DC of the Levaquin and starting amoxicillin/clavulanate tomorrow We discussed reasons to return, continuing the nebulizer he just started and the prednisone 06/08/16 19:49 Medical Decision Making - Lab Data Result diagrams: 06/08/16 19:00 06/08/16 19:00 Disposition Disposition: Discharge Clinical Impression: Abdominal pain Qualifiers: Abdominal location: left lower quadrant Qualified Code(s): R10.32 - Left lower quadrant pain Disposition: Home, Self-Care Condition: (1) Good Instructions: Gas and Bloating (ED) Additional Instructions: Stop the Levaquin Switch to augmentin tomorrow Return if worse, vomiting, short of breath or any concerns Prescriptions: Amoxicillin/Potassium Clav [Augmentin 875-125 Tablet] 1 tab PO BID #14 tab Forms: Patient Portal Access Time of Disposition: 19:52
[2016-06-08 19:13] LABS: BASO % 0.1 % (0-6); HEMATOCRIT 41.5 % (42.0-52.0); HEMOGLOBIN 13.4 gm/dl (14.0-18.0); LYMPH % 8.9 % (16-45); MEAN CELL VOLUME 77.1 fl (81-97); MEAN CORPUSCULAR HEMOGLOBIN 24.9 pg (27-33); MEAN CORPUSCULAR HGB CONC 32.3 g/dl (32-36); MEAN PLATELET VOLUME 9.8 fl (7.4-10.4); MONO % 0.9 % (0-9); PLATELET COUNT 443 K/uL (130-400); RED BLOOD COUNT 5.38 M/uL (4.40-5.70); RED CELL DISTRIBUTION WIDTH 17.2 % (11.5-14.5); WHITE BLOOD COUNT W/O DIFF 10.6 K/uL (4.2-12.2)
[2016-06-08 19:29] LABS: ALB/GLOB RATIO 1.4 (1.1-1.8); ALBUMIN 4.6 gm/dL (3.5-5.0); ALKALINE PHOSPHATASE 136 U/L (38-126); ALT/SGPT 75 U/L (21-72); ANION GAP 14.8 (7-16); AST/SGOT 40 U/L (17-59); BILIRUBIN,TOTAL 0.46 mg/dL (0.2-1.3); BLOOD UREA NITROGEN 15 mg/dL (9-20); CARBON DIOXIDE 23.2 mmol/L (22-30); CREATININE 0.8 mg/dL (0.66-1.25); EST GLOMERULAR FILTRATION RATE > 60 ml/min; GLUCOSE,RANDOM 153 mg/dL (70-110); TOTAL PROTEIN 7.8 gm/dL (6.3-8.2)
== END 2016-06-08 20:06 | disposition home or self-care (01) ==
LOC: ER 18:15
DX: R10.32 Left lower quadrant pain (principal); T37.8X5A Adverse effect of other specified systemic anti-infectives and antiparasitics, initial encounter; R14.0 Abdominal distension (gaseous); J44.9 Chronic obstructive pulmonary disease, unspecified; I10 Essential (primary) hypertension; Z87.891 Personal history of nicotine dependence; J06.9 Acute upper respiratory infection, unspecified
CPT/HCPCS: 71020; 74022; 80053; 83690; 85027; 94640; 99284; J7030

== ENCOUNTER 2016-08-03 16:44 | Inpatient (IN) | payer MEDICARE, OTHER ==
[~2016-08-03 16:44] MED LIST: AZITHROMYCIN 500 MG in 0.9 % SODIUM CHLORIDE 250ML 250 ML IVPB SCH
--- NOTE | 2016-08-03 17:14 | Emergency Department Record ---
History of Present Illness <HerbLorena L - Last Filed: 08/03/16 22:34> - General Source: Patient, Family Mode of Arrival: Ambulatory Limitations: No limitations - History of Present Illness Initial Comments: 66 yo male presents with abdominal pain, bloating, fullness that started last night. He recently developed cough and started on Zpack, Prednisone and breathing treatments. The bloating started last night. He has had vomiting. No diarrhea. No BM today. No fevers. His abdomen hurts diffusely. No history of abdominal surgery. PCP. [facility] [address] -: Hour(s) (24) Location: Diffuse Radiation: None Migration to: Other (diffuse) Severity: Moderate Quality: Aching Consistency: Constant Improves With: Nothing Worsens With: Eating Associated Symptoms: Anorexia, Vomiting <VAL COLIN - Last Filed: 08/06/16 19:00> - General Chief Complaint: General Stated Complaint: REACTION TO MEDS Time Seen by Provider: 08/03/16 17:06 - Related Data Home Medications Medication Instructions Recorded Confirmed Last Taken Omeprazole 20 mg PO QAM 06/10/15 08/03/16 08/03/16 Mometasone Furoate [Nasonex] 2 spray NS QD spray 05/18/16 08/03/16 08/03/16 Previous Rx's Medication Instructions Recorded Azithromycin 500 mg PO DAILY #2 tablet 08/05/16 Allergies Allergy/AdvReac Type Severity Reaction Status Date / Time lovastatin Allergy Severe Shaking Verified 08/03/16 16:53 and Bloating hyoscyamine sulfate Allergy Unknown PT UNSURE Verified 08/03/16 16:53 [From Levsinex] OF REACTION prednisone Allergy Unknown PT UNSURE Verified 08/03/16 16:53 OF REACTION meloxicam [From Mobic] AdvReac Severe internal Verified 08/03/16 16:53 bleeding dicyclomine HCl [From Bentyl] AdvReac Intermediate nausea and Verified 08/03/16 16:53 vomiting levofloxacin [From Levaquin] AdvReac Intermediate nausea and Verified 08/03/16 16:53 vomiting propoxyphene napsylate AdvReac Intermediate nausea and Verified 08/03/16 16:53 [From Darvocet-N] vomiting simvastatin [From Zocor] AdvReac Intermediate muscle Verified 08/03/16 16:53 aches Travel Screening - Travel/Exposure Within Last 30 Days Have you traveled within the last 30 days?: No - Travel/Exposure Within Last Year Have you traveled outside the [place] in the last year?: No - Additonal Travel Details Have you been exposed to anyone with a communicable illness?: No - Travel Symptoms Symptom Screening: None <VAL COLIN - Last Filed: 08/06/16 19:00> Review of Systems Constitutional: Denies: Chills, Fever, Malaise, Weakness Eyes: Denies: Eye discharge ENT: Denies: Congestion, Dental pain, Throat pain Respiratory: Reports: Cough. Denies: Dyspnea, Hemoptysis, Stridor, Wheezes Cardiovascular: Denies: Chest pain, Palpitations, Syncope Endocrine: Denies: Fatigue Gastrointestinal: Reports: Abdominal pain, Nausea, Vomiting. Denies: Constipation, Diarrhea, Hematemesis, Hematochezia, Melena Genitourinary: Denies: Dysuria, Frequency, Hematuria Musculoskeletal: Denies: Arthralgia, Back pain, Joint swelling, Myalgia Skin: Denies: Bruising, Change in color Neurological: Denies: Confusion, Headache Psychiatric: Denies: Anxiety Hematological/Lymphatic: Denies: Anemia, Blood Clots, Easy bleeding, Easy bruising, Swollen glands <VAL COLIN - Last Filed: 08/06/16 19:00> Past Medical History - SOCIAL HISTORY Smoking Status: Former smoker Alcohol Use: Occassional Drug Use: None - RESPIRATORY Hx Respiratory Disorders: Yes Hx Asthma: Yes Hx COPD: Yes Hx Sleep Apnea: Yes - CARDIOVASCULAR Hx Cardio Disorders: Yes Hx Hypertension: Yes Comment:: high cholesterol - NEURO Hx Neuro Disorders: Yes Hx Dizziness: Yes - GI Hx GI Disorders: Yes Hx Diverticulitis: Yes Hx GI Bleed: Yes (2011 r/t ic) Hx Reflux: Yes - Hx Genitourinary Disorders: Yes Hx Prostate Problems: Yes - ENDOCRINE Hx Endocrine Disorders: No - MUSCULOSKELETAL Hx Musculoskeletal Disorders: Yes Hx Arthritis: Yes - PSYCH Hx Psych Problems: No Comment:: doesnt like being i confining spaces - HEMATOLOGY/ONCOLOGY Hx Hematology/Oncology Disorders: Yes Hx Blood Transfusions: Yes (2011 r/t ic) Comment:: pt states hx of internal bleeding <VAL COLIN - Last Filed: 08/06/16 19:00> Family Medical History Any Significant Family History?: Yes Hx Alcohol Use: Father Hx Diabetes: Mother Hx Heart Disease: Father Hx Liver Disease: Mother, Grandparents *Liver Comment: kendra, bile duct surgery <AVL COLIN - Last Filed: 08/06/16 19:00> Physical Exam - General General Appearance: Alert, Oriented x3, Cooperative, No acute distress Limitations: No limitations - Head Head exam: Normal inspection - Eye Eye exam: Normal appearance, PERRL. negative: Conjunctival injection, Periorbital swelling - ENT ENT exam: Normal exam Ear exam: Normal external inspection Nasal Exam: Normal inspection Mouth exam: Normal external inspection Teeth exam: Normal inspection Throat exam: Normal inspection - Neck Neck exam: Normal inspection, Full ROM. negative: Tenderness - Respiratory Respiratory exam: Normal lung sounds bilaterally. negative: Respiratory distress - Cardiovascular Cardiovascular Exam: Normal rhythm, Normal heart sounds, Tachycardia - GI/Abdominal GI/Abdominal exam: Distended, Tenderness - Rectal Rectal exam: Deferred - exam: Deferred - Extremities Extremities exam: Normal inspection, Full ROM, Normal capillary refill. negative: Tenderness - Back Back exam: Reports: Normal inspection, Full ROM. Denies: CVA tenderness (R), CVA tenderness (L), Muscle spasm, Rash noted, Tenderness - Neurological Neurological exam: Alert, Normal gait, Oriented X3, Reflexes normal - Psychiatric Psychiatric exam: Normal affect, Normal mood. 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 WBC count is 18.8 08/03/16 17:57 Reevaluation #2: The remaining labs were reviewed Mild increase in the AST,ALT, and Alk phos. Normal Lipase 08/03/16 18:21 Reevaluation #3: The case was signed out to Dr Estevez See her documentation for final CT results. 08/03/16 19:20 <VAL COLIN - Last Filed: 08/06/16 19:00> Medical Decision Making - Lab Data Result diagrams: 08/03/16 17:50 08/03/16 17:50 Lab Results 08/03/16 08/03/16 08/03/16 Range/Units 17:19 17:50 17:50 WBC 18.8 H (4.2-12.2) K/uL RBC 5.50 (4.40-5.70) M/uL Hgb 13.7 L (14.0-18.0) gm/dl Hct 43.2 (42.0-52.0) % MCV 78.5 L (81-97) fl MCH 24.9 L (27-33) pg MCHC 31.7 L (32-36) g/dl RDW 17.1 H (11.5-14.5) % Plt Count 336 (130-400) K/uL MPV 10.4 (7.4-10.4) fl Neutrophils % 81.0 H (47-80) % Lymphocytes % 12.0 L (16-45) % Monocytes % 7.0 (0-9) % Eosinophils % Not Reportable Basophils % Not Reportable Sodium 139 (136-145) mmol/L Potassium 4.4 (3.5-5.1) mmol/L Chloride 100 (98-107) mmol/L Carbon Dioxide 25.2 (22-30) mmol/L Anion Gap 13.8 (7-16) BUN 14 (9-20) mg/dL Creatinine 0.8 (0.66-1.25) mg/dL Estimated GFR > 60 ml/min Random Glucose 118 H (70-110) mg/dL Lactic Acid (0.7-2.1) mmol/L Calcium 10.3 H (8.5-10.1) mg/dL Total Bilirubin 0.96 (0.2-1.3) mg/dL Direct Bilirubin 0.0 (0-0.3) mg/dL AST 68 H (17-59) U/L ALT 87 H (21-72) U/L Alkaline Phosphatase 218 H (38-126) U/L Total Protein 8.8 H (6.3-8.2) gm/dL Albumin 5.1 H (3.5-5.0) gm/dL Lipase 57 (23-300) U/L Urine Color Urine Appearance Urine pH (5.0-8.0) Ur Specific [place] (1.002-1.030) Urine Protein (NEGATIVE) Urine Glucose (UA) (NEGATIVE) Urine Ketones (NEGATIVE) Urine Blood (NEGATIVE) Urine Nitrite (NEGATIVE) Urine Bilirubin (NEGATIVE) Urine Urobilinogen (0.20 - 1.00) E.U./dL Ur Leukocyte Esterase (NEGATIVE) Chlamydia Spec Info Cancelled C.trachomatis RNA Cancelled N.gonorrhoeae DNA (ALANA) Cancelled 08/03/16 08/03/16 Range/Units 19:04 21:27 WBC (4.2-12.2) K/uL RBC (4.40-5.70) M/uL Hgb (14.0-18.0) gm/dl Hct (42.0-52.0) % MCV (81-97) fl MCH (27-33) pg MCHC (32-36) g/dl RDW (11.5-14.5) % Plt Count (130-400) K/uL MPV (7.4-10.4) fl Neutrophils % (47-80) % Lymphocytes % (16-45) % Monocytes % (0-9) % Eosinophils % Basophils % Sodium (136-145) mmol/L Potassium (3.5-5.1) mmol/L Chloride (98-107) mmol/L Carbon Dioxide (22-30) mmol/L Anion Gap (7-16) BUN (9-20) mg/dL Creatinine (0.66-1.25) mg/dL Estimated GFR ml/min Random Glucose (70-110) mg/dL Lactic Acid 1.3 (0.7-2.1) mmol/L Calcium (8.5-10.1) mg/dL Total Bilirubin (0.2-1.3) mg/dL Direct Bilirubin (0-0.3) mg/dL AST (17-59) U/L ALT (21-72) U/L Alkaline Phosphatase (38-126) U/L Total Protein (6.3-8.2) gm/dL Albumin (3.5-5.0) gm/dL Lipase (23-300) U/L Urine Color Yellow Urine Appearance Sl cloudy Urine pH 5.5 (5.0-8.0) Ur Specific [place] 1.010 (1.002-1.030) Urine Protein Negative (NEGATIVE) Urine Glucose (UA) Negative (NEGATIVE) Urine Ketones Trace H (NEGATIVE) Urine Blood Negative (NEGATIVE) Urine Nitrite Negative (NEGATIVE) Urine Bilirubin Negative (NEGATIVE) Urine Urobilinogen 0.2 (0.20 - 1.00) E.U./dL Ur Leukocyte Esterase Negative (NEGATIVE) Chlamydia Spec Info C.trachomatis RNA N.gonorrhoeae DNA (ALAAN) <Lorena Estevez - Last Filed: 08/03/16 22:34> - Lab Data Result diagrams: 08/04/16 06:10 08/04/16 06:10 <VAL COLIN - Last Filed: 08/06/16 19:00> Disposition Disposition: Admit Decision to Admit: Admit from ER Decision to Admit Date: 08/03/16 Decision to Admit Time: 21:30 <Lorena Estevez - Last Filed: 08/03/16 22:34> <VAL COLIN - Last Filed: 08/06/16 19:00> Clinical Impression: Small bowel obstruction, Elevated liver enzymes Abdominal pain Qualifiers: Abdominal location: left lower quadrant Qualified Code(s): R10.32 - Left lower quadrant pain Pneumonia Qualifiers: Pneumonia type: due to unspecified organism Laterality: bilateral Lung location : lower lobe of lung Qualified Code(s): J18.9 - Pneumonia, unspecified organism Disposition: Still a Patient at [facility] Condition: (1) Good
[2016-08-03] MEDS ORDERED: 0.9 % SODIUM CHLORIDE 1,000 ML BAG IV ONE ×2 (17:19→20:18)
[2016-08-03] MEDS ORDERED: ONDANSETRON HCL IV 4 MG/2 ML VIAL IVP ONE ×2 (17:22→19:04)
[2016-08-03] MEDS ORDERED: MORPHINE SULFATE 5 MG/ML PFS IVP ONE (17:22)
[2016-08-03 17:53] LABS: HEMATOCRIT 43.2 % (42.0-52.0); HEMOGLOBIN 13.7 gm/dl (14.0-18.0); MEAN CELL VOLUME 78.5 fl (81-97); MEAN CORPUSCULAR HEMOGLOBIN 24.9 pg (27-33); MEAN CORPUSCULAR HGB CONC 31.7 g/dl (32-36); MEAN PLATELET VOLUME 10.4 fl (7.4-10.4); PLATELET COUNT 336 K/uL (130-400); RED CELL DISTRIBUTION WIDTH 17.1 % (11.5-14.5); WHITE BLOOD COUNT W/O DIFF 18.8 K/uL (4.2-12.2)
[2016-08-03 18:07] LABS: ALBUMIN 5.1 gm/dL (3.5-5.0); ALKALINE PHOSPHATASE 218 U/L (38-126); ALT/SGPT 87 U/L (21-72); ANION GAP 13.8 (7-16); AST/SGOT 68 U/L (17-59); BILIRUBIN,TOTAL 0.96 mg/dL (0.2-1.3); BLOOD UREA NITROGEN 14 mg/dL (9-20); CARBON DIOXIDE 25.2 mmol/L (22-30); CREATININE 0.8 mg/dL (0.66-1.25); EST GLOMERULAR FILTRATION RATE > 60 ml/min; GLUCOSE,RANDOM 118 mg/dL (70-110); LIPASE 57 U/L (23-300); TOTAL PROTEIN 8.8 gm/dL (6.3-8.2)
[2016-08-03 19:08] LABS: URINE APPEARANCE SL CLOUDY; URINE BILIRUBIN NEGATIVE (NEGATIVE); URINE BLOOD NEGATIVE (NEGATIVE); URINE COLOR YELLOW; URINE GLUCOSE (UA) NEGATIVE (NEGATIVE); URINE KETONE TRACE (NEGATIVE); URINE LEUKOCYTE ESTERASE NEGATIVE (NEGATIVE); URINE NITRITE NEGATIVE (NEGATIVE); URINE PROTEIN NEGATIVE (NEGATIVE); URINE UROBILINOGEN 0.2 E.U./dL (0.20 - 1.00)
[2016-08-03] MEDS ORDERED: CEFTRIAXONE SODIUM 1 GM in 0.9 % SODIUM CHLORIDE 100ML 100 ML IVPB ONE (21:28)
[2016-08-03] MEDS ORDERED: 0.9 % SODIUM CHLORIDE 1000ML 1,000 ML IV PRN (23:14)
[2016-08-03] MEDS ORDERED: HYDROMORPHONE HCL 1 MG/ML CPJ IVP PRN (23:14)
[2016-08-03] MEDS ORDERED: TEMAZEPAM 15 MG CAPSULE PO PRN (23:14)
[2016-08-03] MEDS ORDERED: ONDANSETRON HCL IV 4 MG/2 ML VIAL IVP PRN (23:14)
[2016-08-03] MEDS ORDERED: CEFTRIAXONE SODIUM 1 GM in 0.9 % SODIUM CHLORIDE 100ML 100 ML IVPB SCH (23:14)
[2016-08-04] MEDS: FLUTICASONE/SALMETEROL 100/50 DISKUS INH SCH ×3 (01:18→21:43)
[2016-08-04 06:54] LABS: BASO % 0.7 % (0-6); GRAN % 68.4 % (47-80); HEMATOCRIT 38.1 % (42.0-52.0); HEMOGLOBIN 11.9 gm/dl (14.0-18.0); LYMPH % 18.6 % (16-45); MEAN CORPUSCULAR HGB CONC 31.2 g/dl (32-36); MEAN PLATELET VOLUME 9.9 fl (7.4-10.4); MONO % 10.3 % (0-9); PLATELET COUNT 417 K/uL (130-400); RED BLOOD COUNT 4.76 M/uL (4.40-5.70); RED CELL DISTRIBUTION WIDTH 17.1 % (11.5-14.5); WHITE BLOOD COUNT W/O DIFF 12.1 K/uL (4.2-12.2)
--- NOTE | 2016-08-04 06:59 | CT SCAN REPORT ---
EXAM: CT SCAN OF THE ABDOMEN AND PELVIS WITH CONTRAST HISTORY: NAUSEA AND VOMITING SINCE STARTING PREDNISONE YESTERDAY. ABDOMINAL BLOATING AND PAIN. TECHNIQUE: Standard CT imaging of the abdomen and pelvis was performed in the axial plane with contrast. Additional coronal and sagittal reformatted images were also performed. 100 ml of Omnipaque 300 were administered. Oral contrast was also utilized. Comparison: 10/24/15. FINDINGS: There is mild focal infiltrate at the lung bases suggesting minor pneumonia. This is greatest at the right lung base. The lung bases are otherwise clear. A small hiatal hernia is present. The liver parenchyma appears normal. The gallbladder, biliary tree, pancreas, and spleen are normal. Small accessory spleens are also present. The adrenal glands are unremarkable. Both kidneys are normal with no hydronephrosis or mass. The ureters are normal in caliber. The aorta is normal in caliber with no aneurysm or dissection. There is no retroperitoneal lymphadenopathy. There are multiple distended small bowel loops within the mid abdomen measuring up to 3.5 cm in diameter. There is an abrupt zone of transition within the right lower quadrant along the inner aspect of the right anterior abdominal wall. This is best seen on the coronal images 23 through 25. There is an associated small bowel feces sign. Some fluid is present distal to this level suggesting a partial small bowel obstruction. There is mild stool throughout the colon. There are numerous diverticula within the sigmoid colon with no evidence for acute diverticulitis. There is no pneumoperitoneum or ascites. There is a small fat containing umbilical hernia. A fat containing right inguinal hernia is also present. The prostate gland is mildly enlarged. The urinary bladder appears normal. Degenerative changes are present within the lumbar spine. IMPRESSION: 1. FINDINGS CONSISTENT WITH PARTIAL SMALL BOWEL OBSTRUCTION WITH A ZONE OF TRANSITION NOTED IN THE RIGHT LOWER QUADRANT AND BEST SEEN ON THE CORONAL IMAGES 23 THROUGH 25. THE PROXIMAL SMALL BOWEL LOOPS MEASURE UP TO 3.5 CM IN DIAMETER. NO COMPLETE OBSTRUCTION IS IDENTIFIED. 2. SIGMOID DIVERTICULOSIS WITH NO DIVERTICULITIS. 3. SMALL HIATAL HERNIA. 4. FAT CONTAINING UMBILICAL AND RIGHT INGUINAL HERNIAS. 5. MILDLY ENLARGED PROSTATE GLAND. 6. MILD PATCHY INFILTRATES AT THE LUNG BASES BILATERALLY SUGGESTING PNEUMONIA. JOB NUMBER: [id number] MTDD
[2016-08-04 07:03] LABS: ALB/GLOB RATIO 1.4 (1.1-1.8); ALBUMIN 3.9 gm/dL (3.5-5.0); ALKALINE PHOSPHATASE 146 U/L (38-126); ALT/SGPT 71 U/L (21-72); ANION GAP 10.7 (7-16); AST/SGOT 40 U/L (17-59); BILIRUBIN,TOTAL 0.52 mg/dL (0.2-1.3); BLOOD UREA NITROGEN 12 mg/dL (9-20); CARBON DIOXIDE 26.3 mmol/L (22-30); CREATININE 0.8 mg/dL (0.66-1.25); EST GLOMERULAR FILTRATION RATE > 60 ml/min; GLUCOSE,RANDOM 82 mg/dL (70-110); LIPASE 100 U/L (23-300); TOTAL PROTEIN 6.7 gm/dL (6.3-8.2)
[2016-08-04] MEDS: ALBUTEROL SULFATE (0.083%) 2.5 MG/3 ML NEB INH PRN ×3 (07:17→21:44)
--- NOTE | 2016-08-04 07:34 | History & Physical ---
History of Present Illness - Date of Service Date of Service for History & Physical: 08/04/16 - History of Present Illness Admitting Diagnosis: sbo, pneumonia History of Present Illness: 66 yo male with admitted w/ partial SBO and B/L PNA. He has a history of COPD, PNA, LICO, GERD, HLD, diverticulosis and diverticulitis, bowel obstruction, and GI bleed 2/2 NSAID use requiring blood transfusion. Patient presented to our ED c/o of worsening abdominal pain over the past 24 hours. location is b/l lower abdomen. Aggravating factors include new medications (oral antibiotic, steroids). Alleviated since arriving to our ED and remaining NPO. Associated symptoms include decreased appetite, nausea, vomiting, yellow/green productive cough, headache and bloating. While in the ER VS relatively stable. afebrile. HR 114, BP 150/102, pulse ox 98% RA, RR 16. WBC 18.8, hgb 13.7, hct 43.2, plt 336, sodium 139, potassium 4.4 , glucose 118, AST 68, ALT 87, alk phos 218, bilirubin 0.96, lactic acid 1.3, UA unremarkable. CT of abdomen/pelvis: partial SBO, no complete obstruction noted, sigmoid diverticulosis, small hiatal hernia, fat containing umbilical and right inguinal hernia, mild enlarged prostate gland and patch infiltrate at lung base bilaterally suggesting PNA. Patient started on IV Azithromycin, IV Rocephin and Neb albuterol treatments Q6H's PRN. Patient admitted for further medical management. This morning, patient is sitting up in bed with his at bedside. states he' s feeling much better. abdominal pain, nausea, vomiting, and headache have resolved. Cough is also improving. Has remained NPO throughout the night. Large bowel movement this morning. Decreased appetite continues. Denies any dysuria, blood in stool, black stool, hematemesis, unintentional weight loss, fever, chills, diaphoresis, SOB, CP, or lower extremity swelling. Patient states he [facility] past Tuesday after 3 days of worsening cough. CXR negative at that time. Patient started on PO azithromycin, steroid and breathing treatments. Patient was feeling better, however than he began to experience worsening abdominal pain. He denies any recent travel. He's been sick with URI earlier this year, however no other sick contacts. No NSAID use. Patient experienced some sharp right testicular pain following a cough yesterday. This appears to be improving as well. No previous abdominal surgeries. Relatively unremarkable colonoscopy last year. PCP: Dr. Iyer Travel Screening - Travel/Exposure Within Last 30 Days Have you traveled within the last 30 days?: No - Travel/Exposure Within Last Year Have you traveled outside the [place] in the last year?: No - Additonal Travel Details Have you been exposed to anyone with a communicable illness?: No - Travel Symptoms Symptom Screening: Vomiting, Stomach Pain Review of Systems Constitutional: Denies: Chills, Fever, Malaise, Weakness Eyes: Denies: Eye discharge ENT: Denies: Congestion, Dental pain, Throat pain Respiratory: Reports: Cough. Denies: Dyspnea, Hemoptysis, Stridor, Wheezes Cardiovascular: Denies: Chest pain, Palpitations, Syncope Endocrine: Denies: Fatigue Gastrointestinal: Denies: Abdominal pain, Constipation, Diarrhea, Hematemesis, Hematochezia, Melena, Nausea, Vomiting Genitourinary: Denies: Dysuria, Frequency, Hematuria Musculoskeletal: Denies: Arthralgia, Back pain, Joint swelling, Myalgia Skin: Denies: Bruising, Change in color Neurological: Denies: Confusion, Headache Psychiatric: Denies: Anxiety Hematological/Lymphatic: Denies: Anemia, Blood Clots, Easy bleeding, Easy bruising, Swollen glands Past Medical History - SOCIAL HISTORY Smoking Status: Former smoker Alcohol Use: Occassional Drug Use: None - RESPIRATORY Hx Respiratory Disorders: Yes Hx Asthma: Yes Hx COPD: Yes Hx Sleep Apnea: Yes - CARDIOVASCULAR Hx Cardio Disorders: Yes Hx Hypertension: Yes Comment:: high cholesterol - NEURO Hx Neuro Disorders: Yes Hx Dizziness: Yes - GI Hx GI Disorders: Yes Hx Diverticulitis: Yes Hx GI Bleed: Yes (2011 r/t ) Hx Reflux: Yes - Hx Genitourinary Disorders: Yes Hx Prostate Problems: Yes - ENDOCRINE Hx Endocrine Disorders: No - MUSCULOSKELETAL Hx Musculoskeletal Disorders: Yes Hx Arthritis: Yes (left hand thumb joint & knees) - PSYCH Hx Psych Problems: No Comment:: doesnt like being i confining spaces - HEMATOLOGY/ONCOLOGY Hx Hematology/Oncology Disorders: Yes Hx Blood Transfusions: Yes (2011 r/t ) Comment:: pt states hx of internal bleeding Family Medical History Any Significant Family History?: Yes Hx Alcohol Use: Father Hx Diabetes: Mother Hx Heart Disease: Father Hx Liver Disease: Mother, Grandparents *Liver Comment: kendra, bile duct surgery H&P Meds/Allergies - Allergies Allergies: Allergies Allergy/AdvReac Type Severity Reaction Status Date / Time lovastatin Allergy Severe Shaking Verified 08/03/16 16:53 and Bloating hyoscyamine sulfate Allergy Unknown PT UNSURE Verified 08/03/16 16:53 [From Levsinex] OF REACTION prednisone Allergy Unknown PT UNSURE Verified 08/03/16 16:53 OF REACTION meloxicam [From Mobic] AdvReac Severe internal Verified 08/03/16 16:53 bleeding dicyclomine HCl [From Bentyl] AdvReac Intermediate nausea and Verified 08/03/16 16:53 vomiting levofloxacin [From Levaquin] AdvReac Intermediate nausea and Verified 08/03/16 16:53 vomiting propoxyphene napsylate AdvReac Intermediate nausea and Verified 08/03/16 16:53 [From Darvocet-N] vomiting simvastatin [From Zocor] AdvReac Intermediate muscle Verified 08/03/16 16:53 aches - Home Medications Home Medications Medication Instructions Recorded Confirmed Last Taken Omeprazole 20 mg PO QAM 06/10/15 08/03/16 08/03/16 Mometasone Furoate [Nasonex] 2 spray NS QD spray 05/18/16 08/03/16 08/03/16 - Active Medications Active Medications: Current Medications Albuterol Sulfate () 2.5 mg INH Q6H PRN PRN Reason: DYSPNEA Last Admin: 08/04/16 07:17 Dose: 2.5 mg Fluticasone Propionate (Flonase) 16 spray NA DAILY JOSE J Hydromorphone HCl (Dilaudid) 0.5 mg IVP Q4H PRN PRN Reason: Abdominal Pain Azithromycin 500 mg/ Sodium (Chloride) 250 mls @ 250 mls/hr IVPB Q24H JOSE J Stop: 08/08/16 23:15 Ceftriaxone Sodium 1 gm/ (Sodium Chloride) 100 mls @ 100 mls/hr IVPB Q24H JOSE J Stop: 08/08/16 23:15 Last Admin: 08/04/16 00:24 Dose: Not Given Sodium Chloride () 1,000 mls @ 125 mls/hr IV .Q8H PRN PRN Reason: LARGE VOLUME IV Non-Formulary Medication (Omeprazole [Omeprazole]) 20 mg PO QAM JOSE J Ondansetron HCl (Zofran) 4 mg IVP Q4H PRN PRN Reason: NAUSEA Fluticasone/Salmeterol (Advair 100/50) 1 puff INH BID JOSE J Last Admin: 08/04/16 01:18 Dose: 1 puff Temazepam (Restoril) 15 mg PO QHS PRN PRN Reason: INSOMNIA Physical Exam - Vital Signs Vital Signs: Vital Signs - Last 24 Hrs Temp Pulse Pulse Resp BP Pulse Ox 08/04/16 07:18 74 15 98 08/04/16 06:15 98.4 F 73 18 126/75 98 08/04/16 01:18 80 20 08/04/16 00:57 97.9 F 74 18 136/80 97 08/03/16 23:04 97.8 F 80 20 143/93 99 - General General Appearance: Alert, Oriented x3, Cooperative, No acute distress Limitations: No limitations - Head Head exam: Normal inspection - Eye Eye exam: Normal appearance, PERRL. negative: Conjunctival injection, Periorbital swelling - ENT ENT exam: Normal exam Ear exam: Normal external inspection Nasal Exam: Normal inspection Mouth exam: Normal external inspection Teeth exam: Normal inspection Throat exam: Normal inspection - Neck Neck exam: Normal inspection, Full ROM. negative: Tenderness - Respiratory Respiratory exam: Normal lung sounds bilaterally. negative: Respiratory distress - Cardiovascular Cardiovascular Exam: Regular rate, Normal rhythm, Normal heart sounds. negative : Irregular rhythm, Tachycardia - GI/Abdominal GI/Abdominal exam: Distended, Tenderness - Rectal Rectal exam: Deferred - exam: Other (right inguinal hernia). negative: Normal inspection, Scrotal swelling, Testicular tenderness - Extremities Extremities exam: Normal inspection, Full ROM, Normal capillary refill. negative: Tenderness - Back Back exam: Reports: Normal inspection, Full ROM. Denies: CVA tenderness (R), CVA tenderness (L), Muscle spasm, Rash noted, Tenderness - Neurological Neurological exam: Alert, Normal gait, Oriented X3, Reflexes normal - Psychiatric Psychiatric exam: Normal affect, Normal mood. negative: Agitated, Anxious - Skin Skin exam: Dry, Intact, Normal color, Warm Results - Labs Result Diagrams: 08/04/16 06:10 08/04/16 06:10 Labs Last 24 Hours: Laboratory Results - last 24 hr 08/04/16 08/04/16 06:10 06:10 WBC 12.1 RBC 4.76 Hgb 11.9 L Hct 38.1 L MCV 80.0 L MCH 25.0 L MCHC 31.2 L RDW 17.1 H Plt Count 417 H MPV 9.9 Gran % 68.4 Lymphocytes % 18.6 Monocytes % 10.3 H Eosinophils % 2.0 Basophils % 0.7 Sodium 143 Potassium 3.9 Chloride 106 Carbon Dioxide 26.3 Anion Gap 10.7 BUN 12 Creatinine 0.8 Estimated GFR > 60 Random Glucose 82 Calcium 8.7 Total Bilirubin 0.52 AST 40 ALT 71 Alkaline Phosphatase 146 H Total Protein 6.7 Albumin 3.9 Globulin 2.8 Albumin/Globulin Ratio 1.4 Lipase 100 VTE H&P Assessment - Risk for VTE Risk for VTE: Yes Risk Level: Low Risk Assessment Date: 08/04/16 Risk Assessment Time: 11:00 VTE Orders Placed or Will Be Placed: No VTE Reason for No Prophylaxis: Not Indicated (patient ambulating the room frequently) Plan - Inpatient Certification Inpatient Certification: Admit to inpatient care: Based on my medical assessment, after consideration of patient's risk factors (age, co-morbidities and patient presenting symptoms and acuity), I expect that this patient will remain in the hospital greater than or equal to two midnights and that the services needed warrant inpatient care because: Patient Risk Factors: [] Estimated length of stay: [] The patient may reasonably be expected to be discharged or transferred to a hospital within 96 hours after admission to [facility]. Services needed: [] Post hospital care (if known): [] I certify that my determination is in accordance with my understanding of Medicare requirements for reasonable and necessary inpatient services. - Detailed Diagnosis and Plan (1) Pneumonia Current Visit: Yes Status: Acute Qualifiers: Pneumonia type: due to unspecified organism Laterality: bilateral Lung location: lower lobe of lung Qualified Code(s): J18.9 - Pneumonia, unspecified organism Base Code: J18.9 - PNEUMONIA, UNSPECIFIED ORGANISM Comment: 08/04/16: CTA/P: Iniltrates noted B/L bases. WBC 18.8 on admission, now normalized. VSS. Afebrile. -Continue 500 mg of IV Azithromycin and 1 gm of IV Rocephin Q 12 hours. -Tylenol as needed for fever/pain -INH albuterol Q6H PRN (2) Partial small bowel obstruction Current Visit: Yes Status: Acute Base Code: K56.69 - OTHER INTESTINAL OBSTRUCTION Comment: 08/04/16: CTA/P: Partial small bowel obstruction. no complete obstruction. Patient passing gas w/ large, soft stool this am. Abdominal pain improving. Patient NPO since admission. -advance to CLD -encouraged frequent ambulation -patient encouraged to inform me if he's no longer passing gas or experiencing worsening abdominal pain -avoid narcotics for pain as this may worsen constipation (3) Full code status Current Visit: No Status: Acute Base Code: Z78.9 - OTHER SPECIFIED HEALTH STATUS Comment: 08/04/16 : Patient will remain full code during his hospitalization (4) DVT prophylaxis Current Visit: Yes Status: Acute Base Code: [id number] - Comment: 08/04/16: low risk. Patient ambulating frequently and I've encouraged him to continue to do so.
[2016-08-04] MEDS: FLUTICASONE PROPIONATE 50MCG NASAL 16 GM BTL SCH (09:38)
[2016-08-04] MEDS: PANTOPRAZOLE SODIUM 40 MG TABLET PO SCH (09:38)
[2016-08-04] MEDS: AZITHROMYCIN 500 MG in 0.9 % SODIUM CHLORIDE 250ML 250 ML IVPB SCH (09:39)
[2016-08-04] MEDS ORDERED: ACETAMINOPHEN 500 MG TABLET PO ONE (09:41)
[2016-08-04] MEDS: CEFTRIAXONE SODIUM 1 GM in 0.9 % SODIUM CHLORIDE 100ML 100 ML IVPB SCH (11:47)
--- NOTE | 2016-08-04 21:41 | Discharge Summary ---
Providers Discharge Summary Date: 08/05/16 Date of admission: 08/03/16 22:48 Expected Date of Discharge: 08/05/16 Attending physician: ABBY FLORES Primary care physician: ABBY FLORES Consults: Consult Orders 08/04/16 10:45 Consult - Cardiology NOW Consulting Provider: RAMO KENNY Physician Instructions: consult and treat Reason For Exam: a-fib Does pt have current director credit risk?: Maryse Comment: Rm 29 Physical Exam - Vital Signs Vital Signs: Vital Signs - Last 24 Hrs Temp Pulse Pulse Pulse Resp BP Pulse Ox 08/04/16 21:00 97.8 F 70 65 24 109/63 98 08/04/16 17:37 97.4 F L 71 12 134/79 98 08/04/16 16:08 85 16 98 08/04/16 14:40 97.9 F 65 12 134/81 99 08/04/16 10:21 84 15 98 08/04/16 10:00 97.9 F 76 12 132/72 98 08/04/16 08:21 72 15 08/04/16 07:18 74 15 98 08/04/16 06:15 98.4 F 73 18 126/75 98 08/04/16 01:18 80 20 08/04/16 00:57 97.9 F 74 18 136/80 97 08/03/16 23:04 97.8 F 80 20 143/93 99 - General General Appearance: Alert, Oriented x3, Cooperative, No acute distress Limitations: No limitations - Head Head exam: Normal inspection - Eye Eye exam: Normal appearance, PERRL. negative: Conjunctival injection, Periorbital swelling - ENT ENT exam: Normal exam Ear exam: Normal external inspection Nasal Exam: Normal inspection Mouth exam: Normal external inspection Teeth exam: Normal inspection Throat exam: Normal inspection - Neck Neck exam: Normal inspection, Full ROM. negative: Tenderness - Respiratory Respiratory exam: Normal lung sounds bilaterally. negative: Respiratory distress - Cardiovascular Cardiovascular Exam: Regular rate, Normal rhythm, Normal heart sounds. negative : Irregular rhythm, Tachycardia - GI/Abdominal GI/Abdominal exam: Distended. negative: Tenderness - Rectal Rectal exam: Deferred - exam: Other (right inguinal hernia). negative: Normal inspection, Scrotal swelling, Testicular tenderness - Extremities Extremities exam: Normal inspection, Full ROM, Normal capillary refill. negative: Tenderness - Back Back exam: Reports: Normal inspection, Full ROM. Denies: CVA tenderness (R), CVA tenderness (L), Muscle spasm, Rash noted, Tenderness - Neurological Neurological exam: Alert, Normal gait, Oriented X3, Reflexes normal - Psychiatric Psychiatric exam: Normal affect, Normal mood. negative: Agitated, Anxious - Skin Skin exam: Dry, Intact, Normal color, Warm Hospitalization - Hospitalization Admission Diagnosis: sbo, pneumonia - Problem List/Discharge Diagnosis (1) Pneumonia Current Visit: Yes Status: Acute Discharge Diagnosis: Pneumonia type: due to unspecified organism Laterality: bilateral Lung location: lower lobe of lung Qualified Code(s): J18.9 - Pneumonia, unspecified organism Base Code: J18.9 - PNEUMONIA, UNSPECIFIED ORGANISM Comment: 08/05/16: CTA/P: Iniltrates noted B/L bases. WBC normalized. afebrile. Normal VS's. - Continue 500 mg of PO Azithromycin x 2 days - Tylenol as needed for fever/pain - INH breathing treatments 3-4 x daily - repeat CXR prior to follow up visit next Tuesday (August 13 at 740) - return to the ED re any SOB, ELVA, worsening cough, etc. (2) Partial small bowel obstruction Current Visit: Yes Status: Acute Base Code: K56.69 - OTHER INTESTINAL OBSTRUCTION Comment: 08/05/16: CTA/P: Partial small bowel obstruction. no complete obstruction. Patient passing gas w/ large, soft stool yesterday and today. Abdominal pain has resolved. Patient tolerating full liquid/soft diet. - continue full liquid/soft diet for 2-3 more days then increase diet slowly - frequent ambulation encouraged - continue home bowel regimen (daily prune juice, metamucil prn) - f/up with wv August 13 at 740. Patient agree's to return sooner re any new or worsening symptoms (i.e: unable to pass gas, abdominal pain, n/v, etc) (3) Full code status Current Visit: No Status: Acute Base Code: Z78.9 - OTHER SPECIFIED HEALTH STATUS Comment: 08/05/16 : Patient remained full code during his hospitalization - Hospitalization Course Disposition: Home, Self-Care Hospital Course: 66 yo male with admitted w/ partial SBO and B/L PNA. He has a history of COPD, PNA, LICO, GERD, HLD, diverticulosis and diverticulitis, bowel obstruction, and GI bleed 2/2 NSAID use requiring blood transfusion. Patient presented to our ED c/o of worsening abdominal pain over the past 24 hours. location is b/l lower abdomen. Aggravating factors include new medications (oral antibiotic, steroids). Alleviated since arriving to our ED and remaining NPO. Associated symptoms include decreased appetite, nausea, vomiting, yellow/green productive cough, headache and bloating. While in the ER VS relatively stable. afebrile. HR 114, BP 150/102, pulse ox 98% RA, RR 16. WBC 18.8, hgb 13.7, hct 43.2, plt 336, sodium 139, potassium 4.4 , glucose 118, AST 68, ALT 87, alk phos 218, bilirubin 0.96, lactic acid 1.3, UA unremarkable. CT of abdomen/pelvis: partial SBO, no complete obstruction noted, sigmoid diverticulosis, small hiatal hernia, fat containing umbilical and right inguinal hernia, mild enlarged prostate gland and patch infiltrate at lung base bilaterally suggesting PNA. Patient started on IV Azithromycin, IV Rocephin and Neb albuterol treatments Q6H's PRN. Patient admitted for further medical management. This morning, patient is sitting up in bed with his at bedside. states he' s feeling much better. abdominal pain, nausea, vomiting, and headache have resolved. Cough is also improving. Has remained NPO throughout the night. Large bowel movement this morning. Decreased appetite continues. Denies any dysuria, blood in stool, black stool, hematemesis, unintentional weight loss, fever, chills, diaphoresis, SOB, CP, or lower extremity swelling. Patient states he presented to our [facility] this past Tuesday after 3 days of worsening cough. CXR negative at that time. Patient started on PO azithromycin, steroid and breathing treatments. Patient was feeling better, however than he began to experience worsening abdominal pain. He denies any recent travel. He's been sick with URI earlier this year, however no other sick contacts. No NSAID use. Patient experienced some sharp right testicular pain following a cough yesterday. This appears to be improving as well. No previous abdominal surgeries. Relatively unremarkable colonoscopy last year. PCP: Dr. Flores 08/05/16: Patient walking through the hallway feeling well. He states cough has decreased. No SOB, fever, chills, n/v, abdominal pain. Tolerating soft/ full liquid diet. normal, soft bowel movement this morning. Abnormal Labs: Abnormal Lab Results 08/04/16 08/04/16 Range/Units 06:10 06:10 Hgb 11.9 L (14.0-18.0) gm/dl Hct 38.1 L (42.0-52.0) % MCV 80.0 L (81-97) fl MCH 25.0 L (27-33) pg MCHC 31.2 L (32-36) g/dl RDW 17.1 H (11.5-14.5) % Plt Count 417 H (130-400) K/uL Monocytes % 10.3 H (0-9) % Alkaline Phosphatase 146 H (38-126) U/L Condition at Discharge: (1) Good Discharge Medications - Discharge Medications Prescriptions: Azithromycin 500 mg PO DAILY #2 tablet Home Medications: Ambulatory Orders Omeprazole 20 mg PO QAM 06/10/15 [Last Taken 08/03/16] Mometasone Furoate [Nasonex] 2 spray NS QD spray 05/18/16 [Last Taken 08/03/16] Azithromycin 500 mg PO DAILY #2 tablet 08/05/16 [Last Taken Unknown] Discharge Plan - Discharge Instructions Activity at Discharge: Increase Activity as Tolerated Diet at Discharge: Other (soft, full liquid diet x 2-3 more days then advance to regular diet) Instructions: Community-acquired Pneumonia (DC), Bowel Obstruction (DC) Additional Instructions: special agent group insurance antibiotic and take as directed. Continue breathing treatments at home 3-4 x daily. continue home bowel regimen continue frequent walks increase fluids REST return next Tuesday at 740 for visit with me. Please get repeat chest x ray done 1-2 days prior to your follow up visit. return in the meantime re any decrease gas, constipation, abdominal pain, shortness of breath, difficulty in breathing, etc.
[2016-08-05] MEDS: CEFTRIAXONE SODIUM 1 GM in 0.9 % SODIUM CHLORIDE 100ML 100 ML IVPB SCH (00:09)
[2016-08-05] MEDS: PANTOPRAZOLE SODIUM 40 MG TABLET PO SCH (06:14)
[2016-08-05] MEDS: AZITHROMYCIN 500 MG in 0.9 % SODIUM CHLORIDE 250ML 250 ML IVPB SCH (09:44)
[2016-08-05] MEDS: FLUTICASONE PROPIONATE 50MCG NASAL 16 GM BTL SCH (09:44)
[2016-08-05] MEDS: FLUTICASONE/SALMETEROL 100/50 DISKUS INH SCH (09:54)
== END 2016-08-05 11:59 | disposition home or self-care (01) | DRG 194 ==
LOC: ER 16:44 → MEDSURG 22:48
PROVIDERS: ADMIT Family Medicine; ATTEND Family Medicine
DX: J18.9 Pneumonia, unspecified organism (principal); K56.69 Other intestinal obstruction; J44.9 Chronic obstructive pulmonary disease, unspecified; R11.2 Nausea with vomiting, unspecified; Z78.9 Other specified health status; I10 Essential (primary) hypertension; E78.00 Pure hypercholesterolemia, unspecified
CPT/HCPCS: 99285; 96376; 94760; 96365; 96375; 99291; 83605; 83690; 80076; 80048; 81003; 85027; 74177; Q9967; J2405 ×2; J2270; 80053; 85025; 94640; 99223; 99239; J0456; J7030; J7050; J7613

== ENCOUNTER 2016-10-09 09:03 | Emergency (ER) | payer MEDICARE, OTHER ==
[2016-10-09] MEDS ORDERED: PROMETHAZINE HCL 25 MG/ML VIAL IVP ONE (09:27)
[2016-10-09] MEDS ORDERED: HYDROMORPHONE HCL 1 MG/ML CPJ IVP ONE (09:27)
--- NOTE | 2016-10-09 09:36 | Emergency Department Record ---
History of Present Illness - General Chief Complaint: Fall Injury Stated Complaint: LT SIDE PAIN DUE TO FALL Time Seen by Provider: 10/09/16 09:19 Source: Patient Mode of Arrival: Ambulatory Limitations: No limitations - History of Present Illness Initial Comments: pt fell last night after tripping on a rock and landed on his left side on landscaping. this morning it was difficult to get out of bed w l rib pain Complaint: Fall Onset/Timin -: Hour(s) Fall From: Standing When Fall Occurred: Other Fall Witnessed: Yes, by family Place Fall Occurred: Home Loss of Consciousness: None Prolonged Down Time?: No Symptoms Prior to Fall: None Location: Chest Severity: Moderate Severity scale (1-10): 8 Quality: Sharp Context: Tripped/slipped Associated Symptoms: Denies - [place] Coma Scale Eye Response: (4) Open spontaneously Motor Response: (6) Obeys commands Verbal Response: (5) Oriented [place] Total: 15 - Related Data Home Medications Medication Instructions Recorded Confirmed Last Taken Omeprazole 20 mg PO QAM 06/10/15 10/09/16 10/08/16 Mometasone Furoate [Nasonex] 2 spray NS QD spray 05/18/16 10/09/16 10/08/16 Previous Rx's Medication Instructions Recorded Hydrocodone/Acetaminophen [[place] 1 each PO QID #14 tablet 10/09/16 5-325 Tablet] Allergies Allergy/AdvReac Type Severity Reaction Status Date / Time lovastatin Allergy Severe Shaking Verified 10/09/16 09:08 and Bloating hyoscyamine sulfate Allergy Unknown PT UNSURE Verified 10/09/16 09:08 [From Levsinex] OF REACTION prednisone Allergy Unknown PT UNSURE Verified 10/09/16 09:08 OF REACTION meloxicam [From Mobic] AdvReac Severe internal Verified 10/09/16 09:08 bleeding dicyclomine HCl [From Bentyl] AdvReac Intermediate nausea and Verified 10/09/16 09:08 vomiting levofloxacin [From Levaquin] AdvReac Intermediate nausea and Verified 10/09/16 09:08 vomiting propoxyphene napsylate AdvReac Intermediate nausea and Verified 10/09/16 09:08 [From Darvocet-N] vomiting simvastatin [From Zocor] AdvReac Intermediate muscle Verified 10/09/16 09:08 aches Travel Screening - Travel/Exposure Within Last 30 Days Have you traveled within the last 30 days?: No - Travel/Exposure Within Last Year Have you traveled outside the [place] in the last year?: No - Additonal Travel Details Have you been exposed to anyone with a communicable illness?: No - Travel Symptoms Symptom Screening: None Review of Systems Reviewed: No additional complaints except as noted below Constitutional: Reports: As per HPI. Denies: Chills, Fever, Malaise, Night sweats, Weakness, Weight change Eyes: Reports: As per HPI. Denies: Eye discharge, Eye pain, Photophobia, Vision change ENT: Reports: As per HPI. Denies: Congestion, Dental pain, Ear pain, Epistaxis , Hearing loss, Throat pain Respiratory: Reports: As per HPI. Denies: Cough, Dyspnea, Hemoptysis, Stridor, Wheezes Cardiovascular: Reports: As per HPI. Denies: Arrhythmia, Chest pain, Dyspnea on exertion, Edema, Murmurs, Orthopnea, Palpitations, Paroxysmal nocturnal dyspnea, Rheumatic Fever, Syncope Endocrine: Reports: As per HPI. Denies: Fatigue, Heat or cold intolerance, Polydipsia, Polyuria Gastrointestinal: Reports: As per HPI. Denies: Abdominal pain, Constipation, Diarrhea, Hematemesis, Hematochezia, Melena, Nausea, Vomiting Genitourinary: Reports: As per HPI. Denies: Dysuria, Frequency, Hematuria, Incontinence, Retention, Testicular pain, Testicular mass, Urgency Musculoskeletal: Reports: As per HPI. Denies: Arthralgia, Back pain, Gout, Joint swelling, Myalgia, Neck pain Skin: Reports: As per HPI. Denies: Bruising, Change in color, Change in hair/ nails, Lesions, Pruritus, Rash Neurological: Reports: As per HPI. Denies: Abnormal gait, Confusion, Headache, Numbness, Paresthesias, Seizure, Tingling, Tremors, Vertigo, Weakness Psychiatric: Reports: As per HPI. Denies: Anxiety, Auditory hallucinations, Depression, Homicidal thoughts, Suicidal thoughts, Visual hallucinations Hematological/Lymphatic: Reports: As per HPI. Denies: Anemia, Blood Clots, Easy bleeding, Easy bruising, Swollen glands Past Medical History - SOCIAL HISTORY Smoking Status: Former smoker Alcohol Use: Occassional Drug Use: None - RESPIRATORY Hx Respiratory Disorders: Yes Hx Asthma: Yes Hx COPD: Yes Hx Sleep Apnea: Yes - CARDIOVASCULAR Hx Cardio Disorders: Yes Hx Hypertension: Yes Comment:: high cholesterol - NEURO Hx Neuro Disorders: Yes Hx Dizziness: Yes - GI Hx GI Disorders: Yes Hx Diverticulitis: Yes Hx GI Bleed: Yes (2011/) Hx Reflux: Yes - Hx Genitourinary Disorders: Yes Hx Prostate Problems: Yes - ENDOCRINE Hx Endocrine Disorders: No - MUSCULOSKELETAL Hx Musculoskeletal Disorders: Yes Hx Arthritis: Yes - PSYCH Hx Psych Problems: No Comment:: doesnt like being i confining spaces - HEMATOLOGY/ONCOLOGY Hx Hematology/Oncology Disorders: Yes Hx Blood Transfusions: Yes (2011/) Comment:: pt states hx of internal bleeding Family Medical History Any Significant Family History?: Yes Hx Alcohol Use: Father Hx Diabetes: Mother Hx Heart Disease: Father Hx Liver Disease: Mother, Grandparents *Liver Comment: kendra, bile duct surgery Physical Exam - General General Appearance: Alert, Oriented x3, Cooperative, Mild distress - Head Head exam: Normal inspection - Eye Eye exam: Normal appearance, PERRL, EOMI Pupils: Normal accommodation - ENT ENT exam: Normal exam, Mucous membranes moist, Normal external ear exam, Normal orophraynx Ear exam: Normal external inspection. negative: External canal tenderness Nasal Exam: Normal inspection. negative: Discharge, Sinus tenderness Mouth exam: Normal external inspection, Tongue normal Teeth exam: Normal inspection. negative: Dental caries Throat exam: Normal inspection. negative: Tonsillar erythema, Tonsillar exudate - Neck Neck exam: Normal inspection, Full ROM. negative: Tenderness - Respiratory Respiratory exam: Normal lung sounds bilaterally, Chest wall tenderness, Other ( abrasions over anterior l lower ribs). negative: Respiratory distress - Cardiovascular Cardiovascular Exam: Regular rate, Normal rhythm, Normal heart sounds - GI/Abdominal GI/Abdominal exam: Soft, Normal bowel sounds. negative: Tenderness - Rectal Rectal exam: Deferred - exam: Deferred - Extremities Extremities exam: Normal inspection, Full ROM, Normal capillary refill. negative: Tenderness - Back Back exam: Reports: Normal inspection, Full ROM. Denies: Muscle spasm, Rash noted, Tenderness - Neurological Neurological exam: Alert, Normal gait, Oriented X3, Reflexes normal - Psychiatric Psychiatric exam: Normal affect, Normal mood - Skin Skin exam: Dry, Intact, Normal color, Warm Course Vital Signs 10/09/16 09:09 Temperature 97.6 F Pulse Rate 87 Respiratory 18 Rate Blood Pressure 131/80 Pulse Ox 98 Medical Decision Making - Management Options MDM Management: No Additional Work-up Planned - Data Complexity MDM Data: Labs Ordered and/or Reviewed, X-Ray Ordered and/or Reviewed - Lab Data Result diagrams: 10/09/16 09:49 10/09/16 09:49 Disposition Disposition: Discharge Clinical Impression: Rib fracture Qualifiers: Encounter type: initial encounter Rib fracture type: single rib Fracture type: closed Laterality: left Qualified Code(s): S22.32XA - Fracture of one rib, left side, initial encounter for closed fracture Disposition: Home, Self-Care Condition: (1) Good Instructions: Rib Fracture (ED) Additional Instructions: follow up with family doctor. return sooner if worse. deep inspiration x 5 an hour Prescriptions: Hydrocodone/Acetaminophen [[place] 5-325 Tablet] 1 each PO QID #14 tablet Forms: Patient Portal Access
[2016-10-09 09:56] LABS: BASO % 1.1 % (0-6); EOS % 2.8 % (0-6); GRAN % 66.6 % (47-80); HEMATOCRIT 42.7 % (42.0-52.0); HEMOGLOBIN 13.3 gm/dl (14.0-18.0); LYMPH % 17.1 % (16-45); MEAN CELL VOLUME 79.1 fl (81-97); MEAN CORPUSCULAR HEMOGLOBIN 24.6 pg (27-33); MEAN CORPUSCULAR HGB CONC 31.1 g/dl (32-36); MEAN PLATELET VOLUME 9.6 fl (7.4-10.4); MONO % 12.4 % (0-9); PLATELET COUNT 377 K/uL (130-400); RED CELL DISTRIBUTION WIDTH 16.4 % (11.5-14.5); WHITE BLOOD COUNT W/O DIFF 8.9 K/uL (4.2-12.2)
[2016-10-09 10:06] LABS: ALB/GLOB RATIO 1.5 (1.1-1.8); ALBUMIN 4.9 gm/dL (3.5-5.0); ALKALINE PHOSPHATASE 103 U/L (38-126); ALT/SGPT 26 U/L (21-72); ANION GAP 11.7 (7-16); AST/SGOT 29 U/L (17-59); BLOOD UREA NITROGEN 12 mg/dL (9-20); CARBON DIOXIDE 23.3 mmol/L (22-30); CREATININE 0.8 mg/dL (0.66-1.25); EST GLOMERULAR FILTRATION RATE > 60 ml/min; GLUCOSE,RANDOM 95 mg/dL (70-110); TOTAL PROTEIN 8.2 gm/dL (6.3-8.2)
[2016-10-09 12:07] LABS: URINE APPEARANCE CLEAR; URINE BILIRUBIN NEGATIVE (NEGATIVE); URINE BLOOD NEGATIVE (NEGATIVE); URINE COLOR YELLOW; URINE GLUCOSE (UA) NEGATIVE (NEGATIVE); URINE KETONE TRACE (NEGATIVE); URINE LEUKOCYTE ESTERASE NEGATIVE (NEGATIVE); URINE NITRITE NEGATIVE (NEGATIVE); URINE PROTEIN TRACE (NEGATIVE); URINE UROBILINOGEN 0.2 E.U./dL (0.20 - 1.00)
--- NOTE | 2016-10-10 11:08 | RADIOLOGY REPORT ---
EXAM: RIBS, LEFT W/PA CHEST HISTORY: MID TO UPPER LEFT RIB PAIN ONE DAY POST FALL. TECHNIQUE: AP and oblique views of the left ribs are obtained as well as an upright PA view of the chest. COMPARISON: Two-view chest radiographic examination dated 08/02/16. FINDINGS: There is normal bone mineralization. No convincing acute rib fracture is identified, nor is there a destructive bone lesion. The heart is not enlarged and the pulmonary vasculature is nondilated. The lungs and pleural spaces are clear. There are degenerative changes of the visualized spine and shoulder girdles. IMPRESSION: 1. NO ACUTE LEFT RIB FRACTURE IDENTIFIED. 2. NO EVIDENCE OF ACUTE CARDIOPULMONARY DISEASE. ADDENDUM: The images are again reviewed. On the oblique view, there is equivocal cortical step-off of the distal left seventh rib laterally. This may just be developmental with a nondisplaced fracture not excluded. JOB NUMBER: [id number] MTDD
== END 2016-10-09 12:31 | disposition home or self-care (01) ==
LOC: ER 09:03
DX: S22.32XA Fracture of one rib, left side, initial encounter for closed fracture (principal); W01.0XXA Fall on same level from slipping, tripping and stumbling without subsequent striking against object, initial encounter; Y92.007 Garden or yard of unspecified non-institutional (private) residence as the place of occurrence of the external cause
CPT/HCPCS: 99284 ×2; 96374; 96375; 85025; 80053; 81003; 71101; J1170; J2550

== ENCOUNTER 2016-10-13 10:08 | Emergency (ER) | payer MEDICARE, OTHER ==
[2016-10-13] MEDS ORDERED: 0.9 % SODIUM CHLORIDE 1000ML 1,000 ML IV PRN (10:20)
--- NOTE | 2016-10-13 10:28 | Emergency Department Record ---
History of Present Illness - General Chief Complaint: Back Pain/Injury Stated Complaint: RUQ PAIN Time Seen by Provider: 10/13/16 10:20 Source: Patient, RN notes reviewed Mode of Arrival: Ambulatory - History of Present Illness Initial Comments: patient returns to ED with severe left upper quad pain and a history of a fall walking 5 days ago and seen in our ED 4 days ago with rib xrays and diagnoses with left 7th rib fracture. This morning pain much worse. Breath sounds present bilaterally and he has severe left upper quad pain with guarding. Patient drove himself to the hospital. Patients last norco 5 am today. Complaint: Fall Onset/Timin -: Days(s) Similar Symptoms Previously: Yes Place: Home Severity: Severe Severity scale (1-10): 9 Quality: Stabbing Consistency: Constant Improves With: None Worsens With: Deep breaths/cough Context: Fall Associated Symptoms: Denies other symptoms Treatments Prior to Arrival: Prescription analgesics - Related Data Home Medications Medication Instructions Recorded Confirmed Last Taken Omeprazole 20 mg PO QAM 06/10/15 10/13/16 10/13/16 Mometasone Furoate [Nasonex] 2 spray NS QD spray 05/18/16 10/13/16 10/13/16 Previous Rx's Medication Instructions Recorded Cyclobenzaprine HCl [Flexeril] 5 mg PO TID #20 tab 10/13/16 Allergies Allergy/AdvReac Type Severity Reaction Status Date / Time lovastatin Allergy Severe Shaking Verified 10/09/16 09:08 and Bloating hyoscyamine sulfate Allergy Unknown PT UNSURE Verified 10/09/16 09:08 [From Levsinex] OF REACTION prednisone Allergy Unknown PT UNSURE Verified 10/09/16 09:08 OF REACTION meloxicam [From Mobic] AdvReac Severe internal Verified 10/09/16 09:08 bleeding dicyclomine HCl [From Bentyl] AdvReac Intermediate nausea and Verified 10/09/16 09:08 vomiting levofloxacin [From Levaquin] AdvReac Intermediate nausea and Verified 10/09/16 09:08 vomiting propoxyphene napsylate AdvReac Intermediate nausea and Verified 10/09/16 09:08 [From Darvocet-N] vomiting simvastatin [From Zocor] AdvReac Intermediate muscle Verified 10/09/16 09:08 aches Travel Screening - Travel/Exposure Within Last 30 Days Have you traveled within the last 30 days?: No - Travel/Exposure Within Last Year Have you traveled outside the [place] in the last year?: No - Additonal Travel Details Have you been exposed to anyone with a communicable illness?: No - Travel Symptoms Symptom Screening: None Review of Systems Reviewed: No additional complaints except as noted below Constitutional: Reports: As per HPI. Denies: Chills, Fever, Malaise, Night sweats, Weakness, Weight change Eyes: Reports: As per HPI. Denies: Eye discharge, Eye pain, Photophobia, Vision change ENT: Reports: As per HPI. Denies: Congestion, Dental pain, Ear pain, Epistaxis , Hearing loss, Throat pain Respiratory: Reports: As per HPI. Denies: Cough, Dyspnea, Hemoptysis, Stridor, Wheezes Cardiovascular: Reports: As per HPI, Chest pain. Denies: Arrhythmia, Dyspnea on exertion, Edema, Murmurs, Orthopnea, Palpitations, Paroxysmal nocturnal dyspnea, Rheumatic Fever, Syncope Endocrine: Reports: As per HPI. Denies: Fatigue, Heat or cold intolerance, Polydipsia, Polyuria Gastrointestinal: Reports: As per HPI, Abdominal pain. Denies: Constipation, Diarrhea, Hematemesis, Hematochezia, Melena, Nausea, Vomiting Genitourinary: Reports: As per HPI. Denies: Dysuria, Frequency, Hematuria, Incontinence, Retention, Testicular pain, Testicular mass, Urgency Musculoskeletal: Reports: As per HPI. Denies: Arthralgia, Back pain, Gout, Joint swelling, Myalgia, Neck pain Skin: Reports: As per HPI. Denies: Bruising, Change in color, Change in hair/ nails, Lesions, Pruritus, Rash Neurological: Reports: As per HPI. Denies: Abnormal gait, Confusion, Headache, Numbness, Paresthesias, Seizure, Tingling, Tremors, Vertigo, Weakness Psychiatric: Reports: As per HPI. Denies: Anxiety, Auditory hallucinations, Depression, Homicidal thoughts, Suicidal thoughts, Visual hallucinations Hematological/Lymphatic: Reports: As per HPI. Denies: Anemia, Blood Clots, Easy bleeding, Easy bruising, Swollen glands Past Medical History - SOCIAL HISTORY Smoking Status: Former smoker Alcohol Use: Occassional Drug Use: None - RESPIRATORY Hx Respiratory Disorders: Yes Hx Asthma: Yes Hx COPD: Yes Hx Sleep Apnea: Yes - CARDIOVASCULAR Hx Cardio Disorders: Yes Hx Hypertension: Yes Comment:: high cholesterol - NEURO Hx Neuro Disorders: Yes Hx Dizziness: Yes - GI Hx GI Disorders: Yes Hx Diverticulitis: Yes Hx GI Bleed: Yes (2011/) Hx Reflux: Yes - Hx Genitourinary Disorders: Yes Hx Prostate Problems: Yes - ENDOCRINE Hx Endocrine Disorders: No - MUSCULOSKELETAL Hx Musculoskeletal Disorders: Yes Hx Arthritis: Yes - PSYCH Hx Psych Problems: No Comment:: doesnt like being i confining spaces - HEMATOLOGY/ONCOLOGY Hx Hematology/Oncology Disorders: Yes Hx Blood Transfusions: Yes (2011/) Comment:: pt states hx of internal bleeding Family Medical History Any Significant Family History?: No Hx Alcohol Use: Father Hx Diabetes: Mother Hx Heart Disease: Father Hx Liver Disease: Mother, Grandparents *Liver Comment: kendra, bile duct surgery Physical Exam - General General Appearance: Alert, Oriented x3, Cooperative, Moderate distress - Head Head exam: Normal inspection - Eye Eye exam: Normal appearance, PERRL Pupils: Normal accommodation - ENT ENT exam: Normal exam, Mucous membranes moist, Normal external ear exam, Normal orophraynx, TM's normal bilaterally Ear exam: Normal external inspection. negative: External canal tenderness Nasal Exam: Normal inspection. negative: Discharge, Sinus tenderness Mouth exam: Normal external inspection, Tongue normal Teeth exam: Normal inspection. negative: Dental caries Throat exam: Normal inspection. negative: Tonsillar erythema, Tonsillar exudate - Neck Neck exam: Normal inspection, Full ROM. negative: Tenderness - Respiratory Respiratory exam: Normal lung sounds bilaterally. negative: Respiratory distress - Cardiovascular Cardiovascular Exam: Regular rate, Normal rhythm, Normal heart sounds - GI/Abdominal GI/Abdominal exam: Soft, Normal bowel sounds, Tenderness (left upper quad pain and guarding and I am concerned about the spleen. ) - Rectal Rectal exam: Deferred - exam: Deferred - Extremities Extremities exam: Normal inspection, Full ROM, Normal capillary refill. negative: Tenderness - Back Back exam: Reports: Normal inspection, Full ROM. Denies: Muscle spasm, Rash noted, Tenderness - Neurological Neurological exam: Alert, Normal gait, Oriented X3, Reflexes normal - Psychiatric Psychiatric exam: Normal affect, Normal mood - Skin Skin exam: Dry, Intact, Normal color, Warm Course Vital Signs 10/13/16 10:11 Temperature 97.8 F Pulse Rate 77 Respiratory 20 Rate Blood Pressure 158/97 Pulse Ox 99 notified xrays to run the CT scans with the trauma protocol Medical Decision Making - Data Complexity MDM Data: Labs Ordered and/or Reviewed (Hg 14), X-Ray Ordered and/or Reviewed ( ct chest negative and ct of abd neg) - Lab Data Result diagrams: 10/13/16 10:41 10/13/16 10:41 Disposition Clinical Impression: Abdominal pain Qualifiers: Abdominal location: left upper quadrant Qualified Code(s): R10.12 - Left upper quadrant pain Contusion of flank Qualifiers: Encounter type: subsequent encounter Qualified Code(s): S30.1XXD - Contusion of abdominal wall, subsequent encounter Abdominal contusion Qualifiers: Encounter type: subsequent encounter Qualified Code(s): S30.1XXD - Contusion of abdominal wall, subsequent encounter Disposition: Home, Self-Care Condition: (1) Good Instructions: Contusion in Adults (ED) Additional Instructions: follow up with family in 1 day as scheduled Continue breathing exercises and use heat three times a day on his side start flexeril three times a day Prescriptions: Cyclobenzaprine HCl [Flexeril] 5 mg PO TID #20 tab Forms: Patient Portal Access Time of Disposition: 12:29
[2016-10-13 10:44] LABS: EOS % 3.8 % (0-6); GRAN % 67.6 % (47-80); HEMATOCRIT 43.5 % (42.0-52.0); LYMPH % 16.3 % (16-45); MEAN CELL VOLUME 79.4 fl (81-97); MEAN CORPUSCULAR HEMOGLOBIN 25.5 pg (27-33); MEAN CORPUSCULAR HGB CONC 32.2 g/dl (32-36); MEAN PLATELET VOLUME 9.5 fl (7.4-10.4); MONO % 11.3 % (0-9); PLATELET COUNT 384 K/uL (130-400); RED BLOOD COUNT 5.48 M/uL (4.40-5.70); RED CELL DISTRIBUTION WIDTH 16.3 % (11.5-14.5); WHITE BLOOD COUNT W/O DIFF 9.3 K/uL (4.2-12.2)
[2016-10-13 10:45] LABS: URINE APPEARANCE CLEAR; URINE BILIRUBIN NEGATIVE (NEGATIVE); URINE BLOOD NEGATIVE (NEGATIVE); URINE COLOR YELLOW; URINE GLUCOSE (UA) NEGATIVE (NEGATIVE); URINE KETONE NEGATIVE (NEGATIVE); URINE LEUKOCYTE ESTERASE NEGATIVE (NEGATIVE); URINE NITRITE NEGATIVE (NEGATIVE); URINE PROTEIN NEGATIVE (NEGATIVE); URINE UROBILINOGEN 0.2 E.U./dL (0.20 - 1.00)
[2016-10-13] MEDS ORDERED: MORPHINE SULFATE 5 MG/ML PFS IVP ONE (10:45)
[2016-10-13] MEDS ORDERED: ONDANSETRON HCL IV 4 MG/2 ML VIAL IVP ONE (10:45)
[2016-10-13 10:58] LABS: INR 0.89; PARTIAL THROMBOPLASTIN TIME 26.6 SECONDS (24.5-39.1); PROTHROMBIN TIME (PATIENT) 10.1 SECONDS (9.5-12.1)
[2016-10-13 10:59] LABS: ALBUMIN 5.1 gm/dL (3.5-5.0); ALKALINE PHOSPHATASE 112 U/L (38-126); ALT/SGPT 34 U/L (21-72); ANION GAP 8.9 (7-16); AST/SGOT 31 U/L (17-59); BILIRUBIN,TOTAL 0.89 mg/dL (0.2-1.3); BLOOD UREA NITROGEN 14 mg/dL (9-20); CARBON DIOXIDE 30.1 mmol/L (22-30); CREATININE 0.9 mg/dL (0.66-1.25); EST GLOMERULAR FILTRATION RATE > 60 ml/min; GLUCOSE,RANDOM 99 mg/dL (70-110); LIPASE 91 U/L (23-300); TOTAL PROTEIN 8.5 gm/dL (6.3-8.2)
[2016-10-13] MEDS ORDERED: LORAZEPAM 2 MG/ML VIAL IV ONE (11:08)
--- NOTE | 2016-10-14 00:12 | CT SCAN REPORT ---
EXAM: CT SCAN CHEST W CONTRAST HISTORY: FALL, LEFT SIDE CHEST INJURY AND PAIN. COMPARISON: Left rib series 10/09/16. ENCOUNTER: Initial. TECHNIQUE: Contiguous axial images from the thoracic inlet to the upper abdomen were obtained after the uneventful intravenous administration of 100 mL of Omnipaque-300. FINDINGS: Lungs are clear. No pleural effusion. Central airways are patent. The heart is not enlarged and there is no pericardial effusion. Severe coronary artery calcification. No enlarged lymph nodes in the thoracic. Upper abdomen better seen on abdomen CT of the same day. No fracture. IMPRESSION: 1. NO ACUTE INTRATHORACIC PROCESS. 2. SEVERE CORONARY ARTERY CALCIFICATION. JOB NUMBER: [id number] MTDD
--- NOTE | 2016-10-14 00:23 | CT SCAN REPORT ---
EXAM: CT SCAN ABDOMEN/PELVIS W CONTRAST HISTORY: FALL, LEFT ABDOMINAL TRAUMA AND PAIN. COMPARISON: Abdomen and pelvis CT 08/03/16. TECHNIQUE: Contiguous axial images from the lung bases through the symphysis pubis were obtained after the uneventful intravenous administration of 100 mL of Omnipaque-300. Oral contrast also utilized. ENCOUNTER: Initial. FINDINGS: Small hiatal hernia. The liver is unremarkable. Nonenlarged spleen with calcified granulomata. The kidneys, adrenals, pancreas, and gallbladder are normal. Visualized loops of small and large bowel are of normal caliber. Mild sigmoid colon diverticulosis with no evidence of diverticulitis. Mild aortoiliac calcification. No free intraperitoneal fluid or adenopathy. Fat-containing inguinal hernias. Fat-containing paraumbilical hernia. No lytic or blastic lesions. No fractures. IMPRESSION: 1. NO ACUTE PROCESS OF THE ABDOMEN OR PELVIS. 2. SMALL HIATAL HERNIA. 3. COLONIC DIVERTICULOSIS. 4. FAT-CONTAINING INGUINAL HERNIAS WELL PARAUMBILICAL HERNIA. 5. NO FRACTURE. JOB NUMBER: [id number] [facility]
== END 2016-10-13 12:51 | disposition home or self-care (01) ==
LOC: ER 10:08
DX: S22.32XA Fracture of one rib, left side, initial encounter for closed fracture (principal); S30.1XXA Contusion of abdominal wall, initial encounter; R10.12 Left upper quadrant pain; W01.0XXA Fall on same level from slipping, tripping and stumbling without subsequent striking against object, initial encounter; Y92.007 Garden or yard of unspecified non-institutional (private) residence as the place of occurrence of the external cause
CPT/HCPCS: 99284 ×2; 96374; 96375; 83690; 85025; 85730; 85610; 80076; 80048; 81003; 71260; 74177; Q9967; J2405; J2060; J2270

== ENCOUNTER 2017-05-17 11:56 | Observation (INO) | payer MEDICARE, OTHER ==
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
[2017-05-17] MEDS ORDERED: 0.9 % SODIUM CHLORIDE 1,000 ML BAG IV ONE (12:53)
[2017-05-17] MEDS ORDERED: ONDANSETRON HCL IV 4 MG/2 ML VIAL IV ONE (12:53)
[2017-05-17] MEDS ORDERED: HYDROMORPHONE HCL 1 MG/ML SYRINGE IVP ONE ×2 (13:04→14:26)
[2017-05-17 13:30] LABS: HEMATOCRIT 48.1 % (42.0-52.0); MEAN CELL VOLUME 82.8 fl (81-97); MEAN CORPUSCULAR HEMOGLOBIN 27.5 pg (27-33); MEAN CORPUSCULAR HGB CONC 33.3 g/dl (32-36); MEAN PLATELET VOLUME 10.2 fl (7.4-10.4); PLATELET COUNT 380 K/uL (130-400); RED BLOOD COUNT 5.81 M/uL (4.40-5.70); RED CELL DISTRIBUTION WIDTH 15.2 % (11.5-14.5); WHITE BLOOD COUNT W/O DIFF 18.4 K/uL (4.2-12.2)
[2017-05-17 13:40] LABS: BLOOD UREA NITROGEN 14 mg/dL (8-23); CREATININE 0.8 mg/dL (0.7-1.2); EST GLOMERULAR FILTRATION RATE > 60 mL/min; TOTAL PROTEIN 8.1 g/dL (6.6-8.7)
[2017-05-17 13:42] LABS: GLUCOSE,RANDOM 97 mg/dL (74-109)
[2017-05-17 13:45] LABS: ALBUMIN 4.9 g/dL (4.0-5.0); ALKALINE PHOSPHATASE 113 U/L (40-129); ALT/SGPT 33 U/L (<41); AST/SGOT 28 U/L (10.0-50.0); LIPASE 28 U/L (13-60)
[2017-05-17 13:46] LABS: BILIRUBIN,DIRECT < 0.2 mg/dL (0-0.3)
[2017-05-17 13:47] LABS: PLATELET ESTIMATE NORMAL (NORMAL)
[2017-05-17 14:42] LABS: URINE APPEARANCE CLEAR; URINE BILIRUBIN NEGATIVE (NEGATIVE); URINE BLOOD NEGATIVE (NEGATIVE); URINE COLOR YELLOW; URINE GLUCOSE (UA) NEGATIVE (NEGATIVE); URINE KETONE 15 mg/dL (NEGATIVE); URINE LEUKOCYTE ESTERASE NEGATIVE (NEGATIVE); URINE NITRITE NEGATIVE (NEGATIVE); URINE PROTEIN NEGATIVE (NEGATIVE); URINE UROBILINOGEN 0.2 E.U./dL (0.20 - 1.00)
[2017-05-17] MEDS ORDERED: ALBUTEROL SULFATE (0.083%) 2.5 MG/3 ML NEB INH PRN (18:46)
[2017-05-17] MEDS ORDERED: ONDANSETRON HCL IV 4 MG/2 ML VIAL IVP PRN (18:46)
[2017-05-17] MEDS ORDERED: TEMAZEPAM 15 MG CAPSULE PO PRN (18:46)
[2017-05-17] MEDS ORDERED: HYDROMORPHONE HCL 1 MG/ML SYRINGE IVP PRN (18:46)
[2017-05-17] MEDS ORDERED: LOVASTATIN 20 MG PO SCH (18:46)
[2017-05-17] MEDS ORDERED: ALBUTEROL HFA 8 GM INHALER INH PRN (18:46)
[2017-05-17] MEDS ORDERED: GLYCOPYRROLATE 1 MG PO SCH (18:46)
[2017-05-17] MEDS: 0.9 % SODIUM CHLORIDE 1000ML 1,000 ML IV PRN (18:52)
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
[2017-05-18] MEDS: 0.9 % SODIUM CHLORIDE 1000ML 1,000 ML IV PRN ×2 (02:41→10:40)
[2017-05-18] MEDS: LEVOTHYROXINE SODIUM 50 MCG TABLET PO SCH ×2 (06:14→06:20)
[2017-05-18 06:57] LABS: BASO % 0.7 % (0-6); GRAN % 66.4 % (47-80); HEMOGLOBIN 13.4 gm/dl (14.0-18.0); LYMPH % 18.9 % (16-45); MEAN CELL VOLUME 85.8 fl (81-97); MEAN CORPUSCULAR HGB CONC 32.7 g/dl (32-36); MEAN PLATELET VOLUME 10.2 fl (7.4-10.4); PLATELET COUNT 303 K/uL (130-400); RED BLOOD COUNT 4.78 M/uL (4.40-5.70); RED CELL DISTRIBUTION WIDTH 15.1 % (11.5-14.5)
[2017-05-18] MEDS ORDERED: PANTOPRAZOLE SODIUM 40 MG TABLET PO SCH (07:00)
--- NOTE | 2017-05-18 07:33 | CT SCAN REPORT ---
EXAM: CT OF THE ABDOMEN AND PELVIS WITH CONTRAST HISTORY: PERIUMBILICAL PAIN WITH BLOATING SINCE LAST NIGHT. NAUSEA. ELEVATED WHITE BLOOD CELL COUNT. TECHNIQUE: Following oral and intravenous contrast administration, helical CT examination of the abdomen and pelvis was performed including delayed images through the kidneys with 100 ml of Omnipaque 300 utilized. Comparison: CT of the abdomen and pelvis with contrast dated 10/13/16. FINDINGS: Minimal linear scarring versus atelectasis redemonstrated in each lung base. No pleural or pericardial effusion. The heart is not enlarged. A small sliding type hiatal hernia is again questioned. Evaluation of the small intrathoracic portion of the stomach is limited by lack of distention. No new focal abnormality demonstrated within the liver, spleen, pancreas, adrenal glands, nor kidneys. A few calcified granulomata are again noted within the spleen. No cholelithiasis, gallbladder wall thickening or pericholecystic fluid. No gross intrahepatic biliary ductal dilatation is identified. No intraabdominal nor retroperitoneal lymphadenopathy. The portal vein, splenic vein, and central mesenteric veins appear patent. There is minor atherosclerosis of the abdominal aorta redemonstrated. No aneurysm. No new pelvic mass, lymphadenopathy, or free pelvic fluid is seen. No intrinsic urinary bladder abnormality identified. The prostate gland remains mildly enlarged. Fat density prominent redemonstrated in each inguinal canal, right greater than left consistent with fat containing inguinal hernia sacs. These appear uncomplicated. There is fluid and contrast distention of multiple mid to distal small bowel loops, several of which are mildly dilated. No worrisome air fluid levels, wall thickening, nor sharp zone of transition identified with relative gradual transition within the ileum. No pneumatosis intestinalis. There is trace fluid in the central mesentery, nonspecific. There is diverticulosis of the distal colon without evidence of diverticulitis. The appendix is only partially visualized with no inflammatory changes in its expected location. No free intraperitoneal air. No new lytic or blastic bone lesion. There are degenerative changes scattered within the visualized spine. These are most pronounced at the lower lumbar levels. Minor anterolisthesis of L4 on L5 likely relates to advanced facet arthropathy. IMPRESSION: 1. THERE ARE SEVERAL CONTRAST/FLUID DISTENDED MID TO DISTAL SMALL BOWEL LOOPS PRESENT WITHOUT GROSS DIFFERENTIAL AIR FLUID LEVELS, WALL THICKENING NOR SHARP ZONE OF TRANSITION. THIS MAY RELATE TO PARALYTIC ILEUS OR ENTERITIS. PARTIAL SMALL BOWEL OBSTRUCTION IS LESS LIKELY. 2. TRACE FREE FLUID WITHIN THE CENTRAL MESENTERY, NONSPECIFIC. 3. SIGMOID DIVERTICULOSIS WITHOUT EVIDENCE OF DIVERTICULITIS. 4. FAT CONTAINING INGUINAL HERNIAS, STABLE. NOT MENTIONED ABOVE IS A SMALL FAT FILLED UNCOMPLICATED PARAUMBILICAL HERNIA. JOB NUMBER: [id number] [facility]
[2017-05-18] MEDS ORDERED: ALBUTEROL HFA 8 GM INHALER INH PRN (08:15)
[2017-05-18] MEDS ORDERED: BREO (FLUTICASONE/VILANTEROL) 200MCG/25MCG INHALER INH SCH (10:00)
[2017-05-18] MEDS ORDERED: PATIENT OWN MED: ADVAIR 250/50 INH SCH (10:00)
--- NOTE | 2017-05-18 11:51 | Discharge Summary ---
Providers Discharge Summary Date: 05/18/17 Date of admission: 05/17/17 18:39 Expected Date of Discharge: 05/18/17 Attending physician: IAN ALCAZAR Primary care physician: IAN ALCAZAR Physical Exam - Vital Signs Vital Signs: Vital Signs - Last 24 Hrs Temp Pulse Pulse Resp BP BP Pulse Ox 05/18/17 08:00 97.8 F 62 18 130/82 99 05/18/17 07:40 16 05/18/17 04:00 97.8 F 65 18 136/80 98 05/17/17 23:43 97.7 F 64 18 109/70 96 05/17/17 21:00 16 05/17/17 20:46 97.6 F 71 18 114/74 94 L 05/17/17 20:09 18 05/17/17 18:46 98.1 F 84 20 135/85 99 - General General Appearance: Alert, Oriented x3, Cooperative, No acute distress - Head Head exam: Normal inspection - Eye Eye exam: Normal appearance, PERRL, EOMI Pupils: Normal accommodation - ENT ENT exam: Normal exam, Mucous membranes moist, Normal external ear exam, Normal orophraynx Ear exam: Normal external inspection. negative: External canal tenderness Nasal Exam: Normal inspection. negative: Discharge, Sinus tenderness Mouth exam: Normal external inspection, Tongue normal Teeth exam: Normal inspection. negative: Dental caries Throat exam: Normal inspection. negative: Tonsillar erythema, Tonsillar exudate - Neck Neck exam: Normal inspection, Full ROM. negative: Tenderness - Respiratory Respiratory exam: Normal lung sounds bilaterally, Wheezes (slight expiratory wheeze in bases only). negative: Respiratory distress - Cardiovascular Cardiovascular Exam: Normal rhythm, Normal heart sounds - GI/Abdominal GI/Abdominal exam: Soft, Hypoactive bowel sounds. negative: Tenderness - Rectal Rectal exam: Deferred - exam: Deferred - Extremities Extremities exam: Normal inspection, Full ROM, Normal capillary refill. negative: Tenderness - Back Back exam: Reports: Normal inspection, Full ROM. Denies: Muscle spasm, Rash noted, Tenderness - Neurological Neurological exam: Alert, CN II-XII intact, Normal gait, Oriented X3 - Psychiatric Psychiatric exam: Normal affect, Normal mood - Skin Skin exam: Dry, Intact, Normal color, Warm Hospitalization - Hospitalization Admission Diagnosis: partial small bowel obstruction - Problem List/Discharge Diagnosis (1) Partial small bowel obstruction Current Visit: Yes Status: Acute Base Code: K56.69 - OTHER INTESTINAL OBSTRUCTION * DO NOT USE * Comment: 05/18/17: Abd CT: Partial small bowel obstruction. no complete obstruction. Patient passing gas, no bowel movement yet. Abdominal pain has resolved. Patient tolerating full liquid/soft diet. - continue full liquid/soft diet for 2-3 more days then increase diet slowly - frequent ambulation encouraged - continue home bowel regimen (daily prune juice, metamucil prn) - f/u with PCP within 1 week. Patient agrees to return sooner re any new or worsening symptoms (i.e: unable to pass gas, abdominal pain, n/v, etc) (2) Small bowel obstruction Current Visit: No Status: Acute Base Code: K56.69 - OTHER INTESTINAL OBSTRUCTION * DO NOT USE * Comment: 05/18/17 0930: abd CT demonstrated possible partial SBO vs. paralytic ileus on 05/17/17. Pt. has been recieving IV fluids NS at 125/hour and NPO during night. Pt. did have some clear fluids this morning and tolerated it well. He denies nausea and abdominal pain. He states that he has been passing gas, no bowel movements yet. WBC was 18.4 on admission, decreased to 9.0 this morning. Plan to discharge home this afternoon it pt. continues to tolerate advancing diet. (3) Full code status Current Visit: No Status: Acute Base Code: Z78.9 - OTHER SPECIFIED HEALTH STATUS Comment: 05/18/17: pt. is full code status - Disposition Discharge home, self-care - Hospitalization Course Disposition: Home, Self-Care Hospital Course: You is a 66 year-old male who presented to the ED on 05/17 because he had been experiencing abdominal pain and nausea since the night prior. He also reported that he did not have a bowel movement in 2 days. His history includes hypothyroidism, ex-smoker, asthma, sleep apnea, high cholesterol, diverticulitis, GI bleed in 2011 secondary to mobic use, bph, and arthritis. In the ED, his BP was 134/97, HR 107, RR 16, 99% on room air, and temp of 98.5F. Labs demonstrated an elevated WBC count of 18.4, CBC was unremarkable. UA was positive for ketones. Abdominal CT demonstrated contrast/fluid filled distended loops of small bowel that may be paralytic ileus vs. partial small bowel obstruction, and sigmoid diverticulosis without diverticulitis. He was admitted for observation with IV fluids and gut rest. 05/18/17 0945: Pt. is sitting up in bed this morning. He states that he has been up ambulating without complication. He states that he feel much better this morning, less distended and he has been passing gas. He denies nausea and abdominal pain. He tolerated a small amount of clear fluids this morning, plan to advance diet and if pt. tolerates lunch well, discharge home this afternoon. 05/18/17 1315: Pt. tolerated full liquid lunch well, plan to discharge home. Will advise pt. to advance diet gradually as tolerated. Abnormal Labs: Abnormal Lab Results 05/18/17 Range/Units 06:11 Hgb 13.4 L (14.0-18.0) gm/dl Hct 41.0 L (42.0-52.0) % RDW 15.1 H (11.5-14.5) % Monocytes % 12.0 H (0-9) % Condition at Discharge: (2) Stable VTE Discharge VTE Reason For No Overlap Therapy: Not Indicated Discharge Medications - Discharge Medications Home Medications: Ambulatory Orders Omeprazole 20 mg PO QAM 06/10/15 [Last Taken 05/17/17] Mometasone Furoate [Nasonex] 2 spray NS QD spray 05/18/16 [Last Taken 05/17/17] Fexofenadine HCl [Vicky Allergy] 60 mg PO ASDIR 05/17/17 [Last Taken Unknown] Fluticasone/Salmeterol [Advair 250-50 Diskus] 1 puff INH DAILY 05/17/17 [Last Taken 05/17/17] Levothyroxine Sodium [Synthroid] 50 mcg PO DAILY 05/17/17 [Last Taken 05/16/17] Discharge Plan - Discharge Instructions Activity at Discharge: Increase Activity as Tolerated Diet at Discharge: Regular Diet Additional Instructions: - continue full liquid/soft diet for 2-3 more days, then increase diet slowly - frequent ambulation encouraged - Home bowel regimen (daily prune juice, metamucil prn) - f/u with PCP within 1 week - Return to ED if any new or worsening symptoms (i.e: unable to pass gas, abdominal pain, n/v, etc) Quality Measures - Quality Measures Quality Measures: Advance Directives, Documentation of Current Medications in Medical Record, Elder Maltreatment Screen and Follow-Up Plan, Screening for High Blood Pressure and F/U Documented - Current Medications Quality Measure: Measure #130: Documentation of Current Medications Documentation of Current Medications: <Current Medications Documented/Reviewed> [G4267] - Blood Pressure Screening Quality Measure: Screening for High Blood Pressure and Follow-Up Documented Does Patient Have Any of the Following: No Blood Pressure Classification: Normal BP Reading Systolic Measurement: 115 Diastolic Measurement: 78 Screening for High Blood Pressure: < Normal BP, F/U Not Required > [N1983] - Advance Directives Quality Measure: Measure #47: Care Plan Advance Directives Established: No Advance Directives Information Provided To Patient: Already Provided Advance Directives on File: No Living Will: No Power of Health Actuary: Yes Power of Health Actuary Name: SUGEY SINGH (SPOUSE) Advance Care Planning: <Care Plan/Decision Maker Documented; Discussed & Documented> [9473F] - Elder Abuse Suspicion Index Screening: Elder Abuse Suspicion Index Screening Rely on people for bathing, dressing, shopping, banking, etc: No Prevented from getting food, clothes, medication, etc: No Made to feel shamed or threatened by someone: No Forced to sign papers or use money against will: No Feel afraid, touched in ways not wanted or hurt physically: No Poor eye contact, withdrawn, malnourished, cuts or bruises: No Screening Result: Negative result EASI Reference Information: Isabelle GAMEZ, Odette C, Jani D, Eliza Herring.Development and validation of a tool to assist physicians identification of elder abuse: The Elder Abuse Suspicion Index (EASI ). Journal of Elder Abuse and Neglect, 2008; 20 (3): 276-300. - Elder Maltreatment Screen Quality Measures: Elder Maltreatment Screen and Follow-Up Plan Elder Maltreatment Screen: <Negative, No Follow-Up Plan Required> [P5634]
== END 2017-05-18 14:40 | disposition home or self-care (01) ==
LOC: ER 11:56 → MEDSURG 18:39
PROVIDERS: ADMIT Internal Medicine; ATTEND Internal Medicine
DX: K56.690 Other partial intestinal obstruction (principal); R10.9 Unspecified abdominal pain; K57.30 Diverticulosis of large intestine without perforation or abscess without bleeding; E78.00 Pure hypercholesterolemia, unspecified; E03.9 Hypothyroidism, unspecified; Z87.891 Personal history of nicotine dependence
CPT/HCPCS: 99285 ×2; 96376; 96374; 96375; 83605; 83690; 85025; 80076; 80048; 81003; 85027; 74177; G0378 ×2; Q9967; J2405; J1170; 99217; 99220; J7030

== ENCOUNTER 2017-07-10 06:55 | Emergency (ER) | payer MEDICARE, OTHER ==
[2017-07-10] MEDS ORDERED: IPRATROPIUM/ALBUTEROL (0.5MG/3MG) NEB INH ONE (07:05)
[2017-07-10] MEDS ORDERED: ALBUTEROL SULFATE (0.083%) 2.5 MG/3 ML NEB INH ONE (07:06)
[2017-07-10] MEDS ORDERED: METHYLPREDNISOLONE PF 125MG/VIAL IVP ONE (07:13)
--- NOTE | 2017-07-10 07:17 | Emergency Department Record ---
History of Present Illness - General Chief Complaint: Difficulty Breathing Stated Complaint: ELVA Time Seen by Provider: 07/10/17 07:12 Source: Patient Mode of Arrival: Ambulatory Limitations: No limitations - History of Present Illness Initial Comments: 67 yo male presents to ED for evaluation of continued shortness of breath, wheezing, and coughing sympotms for the past 2 weeks. Patient reports recent treatment for bronchitis with zithromax, prednisone, and albuterol. Patient denies heart of lung problems at his baseline. MD Complaint: Shortness of breath Onset/Timin -: Week(s) Severity: Moderate Consistency: Constant Improves With: Nothing Worsens With: Nothing Context: Recent URI Associated Symptoms: Cough, Fever Treatments Prior to Arrival: Bronchodilator - Related Data Home Oxygen Therapy: No Previous Rx's Medication Instructions Recorded Prednisone [Prednisone 20Mg] 20 mg PO TID #24 tab 07/10/17 Allergies Allergy/AdvReac Type Severity Reaction Status Date / Time lovastatin Allergy Severe Shaking Unverified 07/04/17 08:25 and Bloating hyoscyamine sulfate Allergy Unknown PT UNSURE Unverified 07/04/17 08:25 [From Levsinex] OF REACTION prednisone Allergy Unknown shakes Unverified 07/10/17 07:13 meloxicam [From Mobic] AdvReac Severe internal Unverified 07/04/17 08:25 bleeding dicyclomine HCl [From Bentyl] AdvReac Intermediate nausea and Unverified 08:25 vomiting levofloxacin [From Levaquin] AdvReac Intermediate nausea and Unverified 08:25 vomiting propoxyphene napsylate AdvReac Intermediate nausea and Unverified 07/04/17 08:25 [From Darvocet-N] vomiting simvastatin [From Zocor] AdvReac Intermediate muscle Unverified 07/04/17 08:25 aches Travel Screening - Travel/Exposure Within Last 30 Days Have you traveled within the last 30 days?: No Review of Systems Constitutional: Reports: Fever. Denies: Chills, Malaise, Night sweats Eyes: Denies: Eye discharge, Eye pain ENT: Reports: Congestion. Denies: Ear pain, Epistaxis Respiratory: Reports: Cough, Dyspnea, Wheezes Cardiovascular: Reports: Dyspnea on exertion. Denies: Chest pain Endocrine: Denies: Fatigue, Heat or cold intolerance Gastrointestinal: Denies: Abdominal pain, Nausea, Vomiting Genitourinary: Denies: Incontinence, Retention Musculoskeletal: Denies: Arthralgia, Back pain, Gout, Joint swelling Skin: Denies: Bruising, Change in color Neurological: Denies: Abnormal gait, Confusion, Headache, Tingling, Tremors Psychiatric: Denies: Anxiety Hematological/Lymphatic: Denies: Anemia, Blood Clots Past Medical History - SOCIAL HISTORY Smoking Status: Former smoker Alcohol Use: None Drug Use: None - RESPIRATORY Hx Respiratory Disorders: Yes Hx Asthma: Yes Hx COPD: Yes Hx Sleep Apnea: Yes - CARDIOVASCULAR Hx Cardio Disorders: Yes Hx Hypertension: Yes Comment:: high cholesterol - NEURO Hx Neuro Disorders: Yes Hx Dizziness: Yes - GI Hx GI Disorders: Yes Hx Diverticulitis: Yes Hx GI Bleed: Yes (2011/) Hx Reflux: Yes - Hx Genitourinary Disorders: Yes Hx Prostate Problems: Yes - ENDOCRINE Hx Endocrine Disorders: No - MUSCULOSKELETAL Hx Musculoskeletal Disorders: Yes Hx Arthritis: Yes - PSYCH Hx Psych Problems: No - HEMATOLOGY/ONCOLOGY Hx Hematology/Oncology Disorders: Yes Hx Blood Transfusions: Yes (2011/) Comment:: pt states hx of internal bleeding Family Medical History Any Significant Family History?: Yes Hx Alcohol Use: Father Hx Diabetes: Mother Hx Heart Disease: Father Hx Liver Disease: Mother, Grandparents *Liver Comment: kendra, bile duct surgery Physical Exam - General General Appearance: Alert, Oriented x3, Cooperative, Moderate distress Limitations: No limitations - Head Head exam: Atraumatic, Normocephalic, Normal inspection Head exam detail: negative: Abrasion, Contusion, Duval's sign, General tenderness, Hematoma, Laceration - Eye Eye exam: Normal appearance. negative: Conjunctival injection, Periorbital swelling, Periorbital tenderness, Scleral icterus - ENT Ear exam: negative: Auricular hematoma, Auricular trauma Nasal Exam: negative: Active bleeding, Discharge, Dried blood, Foreign body Mouth exam: negative: Drooling, Laceration, Tongue elevation - Neck Neck exam: Normal inspection. negative: Meningismus, Tenderness - Respiratory Respiratory exam: Decreased breath sounds, Prolonged expiratory, Wheezes. negative: Rhonchi, Stridor - Cardiovascular Cardiovascular Exam: Regular rate, Normal rhythm, Normal heart sounds - GI/Abdominal GI/Abdominal exam: Soft. negative: Distended, Rebound, Rigid, Tenderness - Rectal Rectal exam: Deferred - exam: Deferred - Extremities Extremities exam: Normal inspection. negative: Calf tenderness, Pedal edema, Tenderness - Back Back exam: Reports: Normal inspection. Denies: CVA tenderness (R), CVA tenderness (L) - Neurological Neurological exam: Alert, Normal gait, Oriented X3 - Psychiatric Psychiatric exam: Normal affect, Normal mood - Skin Skin exam: Normal color. negative: Abrasion Type of lesion: negative: abrasion Course - Reevaluation(s) Reevaluation #1: 07/10/17 07:58 Labs reviewed and are grossly unremarkable for an acute process. CXR: No acute process Reevaluation #2: 07/10/17 08:32 Patient reassessed resting comfortably, bronchspasm is much improved, and the patient appears stable for discharge at this time. Medical Decision Making - Lab Data Result diagrams: 07/10/17 07:25 07/10/17 07:25 Disposition Disposition: Discharge Clinical Impression: Bronchitis Disposition: Home, Self-Care Condition: (2) Stable Instructions: Acute Bronchitis (ED) Additional Instructions: Return to ED if your symptoms worsen or if you have any concerns. Prednisone as directed. Follow-up with your family doctor in 3-5 days as directed. Prescriptions: Prednisone [Prednisone 20Mg] 20 mg PO TID #24 tab Forms: Patient Portal Access Time of Disposition: 08:33 Quality - Quality Measures Quality Measures: N/A - Blood Pressure Screening Does Patient Have Any of the Following: No Blood Pressure Classification: Hypertensive Reading Systolic Measurement: 145 Diastolic Measurement: 91 Screening for High Blood Pressure: < First Hypertensive BP, F/U Documented > [ G8950] First Hypertensive Follow-up Interventions: Referral to alternative/primary care provider.
[2017-07-10 07:38] LABS: BASO % 0.3 % (0-6); EOS % 1.3 % (0-6); GRAN % 61.4 % (47-80); HEMATOCRIT 43.1 % (42.0-52.0); HEMOGLOBIN 14.4 gm/dl (14.0-18.0); MEAN CELL VOLUME 83.7 fl (81-97); MEAN CORPUSCULAR HGB CONC 33.4 g/dl (32-36); MEAN PLATELET VOLUME 10.8 fl (7.4-10.4); PLATELET COUNT 300 K/uL (130-400); RED BLOOD COUNT 5.15 M/uL (4.40-5.70); RED CELL DISTRIBUTION WIDTH 15.1 % (11.5-14.5); WHITE BLOOD COUNT W/O DIFF 11.6 K/uL (4.2-12.2)
[2017-07-10 07:51] LABS: INFLUENZA A NEGATIVE (NEGATIVE); INFLUENZA B NEGATIVE (NEGATIVE)
[2017-07-10 07:55] LABS: ALB/GLOB RATIO 1.7 (1.1-1.8); ALBUMIN 4.3 g/dL (4.0-5.0); ALKALINE PHOSPHATASE 87 U/L (40-129); ALT/SGPT 51 U/L (<41); AST/SGOT 24 U/L (10.0-50.0); BLOOD UREA NITROGEN 19 mg/dL (8-23); CREATININE 0.7 mg/dL (0.7-1.2); EST GLOMERULAR FILTRATION RATE > 60 mL/min; GLUCOSE,RANDOM 104 mg/dL (74-109); TOTAL PROTEIN 6.8 g/dL (6.6-8.7)
--- NOTE | 2017-07-11 08:16 | RADIOLOGY REPORT ---
EXAM: CHEST, TWO VIEWS HISTORY: DYSPNEA AND COUGH FOR TWO WEEKS. TECHNIQUE: Two views of the chest were obtained. Comparison: 06/27/17. FINDINGS: The cardiomediastinal silhouette is unremarkable. The lungs are hyperaerated consistent with emphysematous change/COPD. Mild left basilar atelectasis or scar. No focal consolidation or pleural effusion. IMPRESSION: NO ACUTE CARDIOPULMONARY ABNORMALITY. COPD. JOB NUMBER: [id number] MTDD
== END 2017-07-10 09:04 | disposition home or self-care (01) ==
LOC: ER 06:55
DX: J20.9 Acute bronchitis, unspecified (principal); R06.02 Shortness of breath; I10 Essential (primary) hypertension; F17.210 Nicotine dependence, cigarettes, uncomplicated
CPT/HCPCS: 71046; 80053; 85025; 87400; 94640; 96374; 99284; J2930; J7613

== ENCOUNTER 2017-10-01 20:08 | Emergency (ER) | payer MEDICARE, OTHER ==
[2017-10-01] MEDS ORDERED: 0.9 % SODIUM CHLORIDE 1,000 ML BAG IV ONE (20:21)
[2017-10-01] MEDS ORDERED: ONDANSETRON HCL IV 4 MG/2 ML VIAL IV ONE (20:21)
[2017-10-01] MEDS ORDERED: MORPHINE SULFATE 4MG/ML PREFILLED SYRINGE IVP ONE ×2 (20:24→23:11)
--- NOTE | 2017-10-01 20:25 | Emergency Department Record ---
History of Present Illness - General Chief Complaint: Abdominal Pain Stated Complaint: SHARP ABD PAINS AND BLOATING Time Seen by Provider: 10/01/17 20:19 Source: Patient - History of Present Illness Initial Comments: Sharp abdominal pains began around 6 a.m. this morning, 9/10 maximum severity, but now 4-5/10. He has had 4-5 loose stools, and has vomited once today. He denies fevers, chills, cough, sore throat, chest pain. The pain does not radiated into the back. It is diffuse, associated with distention, but most intense in the RLQ. He has never had surgery in his abdomen. He has had diverticulitis. MD Complaint: Abdominal pain - Related Data Previous Rx's Medication Instructions Recorded Ipratropium/Albuterol [Duoneb] 3 ml INH RESP.Q4H.WA #180 ampul.neb 07/21/17 Allergies Allergy/AdvReac Type Severity Reaction Status Date / Time lovastatin Allergy Severe Shaking Verified 10/01/17 20:11 and Bloating hyoscyamine sulfate Allergy Unknown PT UNSURE Verified 10/01/17 20:11 [From Levsinex] OF REACTION prednisone Allergy Unknown shakes Verified 10/01/17 20:11 meloxicam [From Mobic] AdvReac Severe internal Verified 10/01/17 20:11 bleeding dicyclomine HCl [From Bentyl] AdvReac Intermediate nausea and Verified 10/01/17 20:11 vomiting levofloxacin [From Levaquin] AdvReac Intermediate nausea and Verified 10/01/17 20:11 vomiting propoxyphene napsylate AdvReac Intermediate nausea and Verified 10/01/17 20:11 [From Darvocet-N] vomiting simvastatin [From Zocor] AdvReac Intermediate muscle Verified 10/01/17 20:11 aches Review of Systems Reviewed: No additional complaints except as noted below Constitutional: Reports: As per HPI. Denies: Chills, Fever, Malaise, Night sweats, Weakness, Weight change Eyes: Reports: As per HPI. Denies: Eye discharge, Eye pain, Photophobia, Vision change ENT: Reports: As per HPI. Denies: Congestion, Dental pain, Ear pain, Epistaxis , Hearing loss, Throat pain Respiratory: Reports: As per HPI. Denies: Cough, Dyspnea, Hemoptysis, Stridor, Wheezes Cardiovascular: Reports: As per HPI. Denies: Arrhythmia, Chest pain, Dyspnea on exertion, Edema, Murmurs, Orthopnea, Palpitations, Paroxysmal nocturnal dyspnea, Rheumatic Fever, Syncope Endocrine: Reports: As per HPI. Denies: Fatigue, Heat or cold intolerance, Polydipsia, Polyuria Gastrointestinal: Reports: As per HPI. Denies: Abdominal pain, Constipation, Diarrhea, Hematemesis, Hematochezia, Melena, Nausea, Vomiting Genitourinary: Reports: As per HPI. Denies: Dysuria, Frequency, Hematuria, Incontinence, Retention, Testicular pain, Testicular mass, Urgency Musculoskeletal: Reports: As per HPI. Denies: Arthralgia, Back pain, Gout, Joint swelling, Myalgia, Neck pain Skin: Reports: As per HPI. Denies: Bruising, Change in color, Change in hair/ nails, Lesions, Pruritus, Rash Neurological: Reports: As per HPI. Denies: Abnormal gait, Confusion, Headache, Numbness, Paresthesias, Seizure, Tingling, Tremors, Vertigo, Weakness Psychiatric: Reports: As per HPI. Denies: Anxiety, Auditory hallucinations, Depression, Homicidal thoughts, Suicidal thoughts, Visual hallucinations Hematological/Lymphatic: Reports: As per HPI. Denies: Anemia, Blood Clots, Easy bleeding, Easy bruising, Swollen glands Past Medical History - SOCIAL HISTORY Smoking Status: Former smoker Drug Use: None - RESPIRATORY Hx Respiratory Disorders: Yes Hx Asthma: Yes Hx COPD: Yes Hx Sleep Apnea: Yes - CARDIOVASCULAR Hx Cardio Disorders: Yes Hx Hypertension: Yes Comment:: high cholesterol - NEURO Hx Neuro Disorders: Yes Hx Dizziness: Yes - GI Hx GI Disorders: Yes Hx Diverticulitis: Yes Hx GI Bleed: Yes (2011 r/t ) Hx Reflux: Yes - Hx Genitourinary Disorders: Yes Hx Prostate Problems: Yes - ENDOCRINE Hx Endocrine Disorders: No - MUSCULOSKELETAL Hx Musculoskeletal Disorders: Yes Hx Arthritis: Yes - PSYCH Hx Psych Problems: No Comment:: doesnt like being i confining spaces - HEMATOLOGY/ONCOLOGY Hx Hematology/Oncology Disorders: Yes Hx Blood Transfusions: Yes (2011 r/t ic) Comment:: pt states hx of internal bleeding Family Medical History Hx Alcohol Use: Father Hx Diabetes: Mother Hx Heart Disease: Father Hx Liver Disease: Mother, Grandparents *Liver Comment: kendra, bile duct surgery Physical Exam - General General Appearance: Alert, Oriented x3, Cooperative, Moderate distress (moaning , holding his lower abdomen which appears distended) - Head Head exam: Normal inspection - Eye Eye exam: Normal appearance, PERRL, EOMI. negative: Conjunctival injection, Nystagmus Pupils: Normal accommodation - ENT ENT exam: Normal exam, Mucous membranes moist, Normal external ear exam, Normal orophraynx, TM's normal bilaterally Ear exam: Normal external inspection. negative: External canal tenderness Nasal Exam: Normal inspection. negative: Discharge, Sinus tenderness Mouth exam: Normal external inspection, Tongue normal Teeth exam: Normal inspection. negative: Dental caries Throat exam: Normal inspection. negative: Tonsillar erythema, Tonsillar exudate - Neck Neck exam: Normal inspection, Full ROM. negative: Lymphadenopathy, Meningismus , Tenderness - Respiratory Respiratory exam: Decreased breath sounds. negative: Respiratory distress - Cardiovascular Cardiovascular Exam: Normal rhythm, Normal heart sounds, Tachycardia - GI/Abdominal GI/Abdominal exam: Distended, Guarding, Tenderness (diffusely tender all quadrants with maximum tenderness RLQ diffusely) - Rectal Rectal exam: Deferred - exam: Deferred - Extremities Extremities exam: Normal inspection, Full ROM, Normal capillary refill. negative: Tenderness - Back Back exam: Reports: Normal inspection, Full ROM. Denies: Muscle spasm, Rash noted, Tenderness - Neurological Neurological exam: Alert, Normal gait, Oriented X3, Reflexes normal - Psychiatric Psychiatric exam: Normal affect, Normal mood - Skin Skin exam: Dry, Intact, Normal color, Warm Course - Reevaluation(s) Reevaluation #1: Patient states he vomited up the contrast. His pain is waxing and waxing from 0- 9/10 with spasms. 10/01/17 22:57 Reevaluation #2: 10/01/17 23:04 SANAM Alves who requests transfer to [facility] department for his resident to see and admit. Requests no NG at this time. SANAM Fallon emergency physician who accepts patient in transfer Reevaluation #3: Repeat morphine ordered. Patient aware of transfer plan to [facility]. Understands and agrees. All questions answered. 10/01/17 23:16 Medical Decision Making - Management Options MDM Management: Additional Work-up Planned (e.g. ADM/Transfer/OP Study) ( Transfer to [facility] Emergency Dr. Ram/ Dr. Alves Surgery.) - Data Complexity MDM Data: Labs Ordered and/or Reviewed (16.9 WBC with 79 neutrophils, AG 22, owthewise wnl), X-Ray Ordered and/or Reviewed (Contrast CT Abd/Pelvis: Partial SBO vs. illeus with area of obstruction in distal small bowel. ) - Lab Data Result diagrams: 10/01/17 20:25 10/01/17 20:25 Disposition Disposition: Transfer Clinical Impression: Ileus, Small bowel obstruction, partial Leukocytosis Qualifiers: Leukocytosis type: unspecified Qualified Code(s): D72.829 - Elevated white blood cell count, unspecified Disposition: Acute Care Hospital Transfer Decision to Admit: Admit from ER Transfer To: [facility] Emergency Reason For Transfer: surgical services Accepting Physician: Dr. Alves surgery; Dr. Ram emergency department Time Discussed w/Accepting Physician: 23:18 Condition: (2) Stable Forms: Patient Portal Access Quality - Quality Measures Quality Measures: N/A - Blood Pressure Screening Does Patient Have Any of the Following: No Blood Pressure Classification: Pre-Hypertensive BP Reading Systolic Measurement: 133 Diastolic Measurement: 87 Screening for High Blood Pressure: < Pre-Hypertensive BP, F/U Documented > [ G8950] Pre-Hypertensive Follow-up Interventions: Follow-up with rescreen every year.
[2017-10-01 20:34] LABS: HEMATOCRIT 45.4 % (42.0-52.0); HEMOGLOBIN 15.5 gm/dl (14.0-18.0); MEAN CELL VOLUME 85.3 fl (81-97); MEAN CORPUSCULAR HEMOGLOBIN 29.1 pg (27-33); MEAN CORPUSCULAR HGB CONC 34.1 g/dl (32-36); MEAN PLATELET VOLUME 9.5 fl (7.4-10.4); PLATELET COUNT 375 K/uL (130-400); RED BLOOD COUNT 5.32 M/uL (4.40-5.70); RED CELL DISTRIBUTION WIDTH 14.6 % (11.5-14.5); WHITE BLOOD COUNT W/O DIFF 16.9 K/uL (4.2-12.2)
[2017-10-01 20:43] LABS: PLATELET ESTIMATE NORMAL (NORMAL)
[2017-10-01 20:49] LABS: BLOOD UREA NITROGEN 11 mg/dL (8-23); CREATININE 0.7 mg/dL (0.7-1.2); EST GLOMERULAR FILTRATION RATE > 60 mL/min
[2017-10-01 20:50] LABS: TOTAL PROTEIN 7.5 g/dL (6.6-8.7)
[2017-10-01 20:51] LABS: GLUCOSE,RANDOM 105 mg/dL (74-109)
[2017-10-01 20:54] LABS: ALBUMIN 4.8 g/dL (4.0-5.0); ALKALINE PHOSPHATASE 104 U/L (40-129); ALT/SGPT 31 U/L (<41); AST/SGOT 28 U/L (10.0-50.0)
[2017-10-01 20:55] LABS: BILIRUBIN,DIRECT < 0.2 mg/dL (0-0.3)
[2017-10-01] MEDS ORDERED: ONDANSETRON HCL IV 4 MG/2 ML VIAL IVP ONE (22:28)
[2017-10-01 22:38] LABS: URINE APPEARANCE CLEAR; URINE BILIRUBIN NEGATIVE (NEGATIVE); URINE BLOOD NEGATIVE (NEGATIVE); URINE COLOR YELLOW; URINE GLUCOSE (UA) NEGATIVE (NEGATIVE); URINE KETONE NEGATIVE (NEGATIVE); URINE LEUKOCYTE ESTERASE NEGATIVE (NEGATIVE); URINE NITRITE NEGATIVE (NEGATIVE); URINE PROTEIN NEGATIVE (NEGATIVE); URINE UROBILINOGEN 0.2 E.U./dL (0.20 - 1.00)
--- NOTE | 2017-10-03 18:06 | CT SCAN REPORT ---
EXAM: CT SCAN ABDOMEN/PELVIS W CONTRAST HISTORY: PATIENT HAS ACID REFLUX AND ABDOMINAL PAIN. TECHNIQUE: Serial axial CT scan of the abdomen and pelvis was performed at 2.5 mm intervals from the dome of the diaphragm down to the pubic symphysis following the intravenous administration of 100 mL of Omnipaque-300. Oral contrast was also administered. Examination was performed in the left lateral decubitus position because the patient was unable to lie supine. COMPARISON: Comparison CT scan of the abdomen and pelvis dated 05/17/2017 is provided. FINDINGS: Lung windows of the lung bases demonstrate no CT evidence of a focal infiltrate or pleural effusion. The visualized heart size and contour is within normal limits. Moderate-sized hiatal hernia is noted. The liver, spleen, pancreas, adrenal glands, and gallbladder are unremarkable. Of note, there is a splenial between the posterior gastric cardia and the left hemidiaphragm, which is unchanged with respect to the prior CT scan. There is no CT evidence of hydronephrosis or hydroureter. No renal or ureteral calculi are noted. The contour, caliber, and flow within the abdominal aorta is within normal limits. There is no CT evidence of retroperitoneal, pelvic, or inguinal lymphadenopathy. Multiple dilated loops of small bowel are identified with air-fluid levels. There is fecal content identified within several of these distal loops of small bowel. There is narrowing of the distal small bowel proximal to the terminal ileum. These findings may represent a low grade partial small bowel obstruction. No obvious bowel wall thickening is noted. Ileus is also a possibility. There is no CT evidence of free intraperitoneal fluid or free intraperitoneal air. Urinary bladder is unremarkable. Prostate is mildly enlarged. Fat-containing bilateral indirect inguinal hernias are unchanged with respect to the prior CT scan. Bone windows demonstrate no CT evidence of an acute fracture or dislocation of the visualized osseous structures of the abdomen and pelvis. Degenerative disc disease of the lower lumbar spine is noted. IMPRESSION: 1. MODERATE-SIZED HIATAL HERNIA. 2. FINDINGS SUGGESTIVE OF LOW GRADE PARTIAL SMALL BOWEL OBSTRUCTION VERSUS ILEUS. I SUSPECT THE TRANSITION POINT FOR THE LOW GRADE OBSTRUCTION MAY BE LOCATED WITHIN THE DISTAL SMALL BOWEL AND MAY BE RELATED TO STRICTURES. CLINICAL CORRELATION IS RECOMMENDED. JOB NUMBER: [id number] [facility]
== END 2017-10-01 23:50 | disposition short-term general hospital (02) ==
LOC: ER 20:08
DX: K56.600 Partial intestinal obstruction, unspecified as to cause (principal); D72.829 Elevated white blood cell count, unspecified; Z87.891 Personal history of nicotine dependence; E78.00 Pure hypercholesterolemia, unspecified
CPT/HCPCS: 74177; 80048; 80076; 81003; 83605; 85027; 96361; 96374; 96375; 96376; 99285; J2274; J2405; J7030

== ENCOUNTER 2018-06-07 18:18 | Emergency (ER) | payer MEDICARE, OTHER ==
[2018-06-07] MEDS ORDERED: ONDANSETRON HCL IV 4 MG/2 ML VIAL IVP ONE (18:26)
[2018-06-07] MEDS ORDERED: 0.9 % SODIUM CHLORIDE 1,000 ML BAG IV ONE (18:26)
--- NOTE | 2018-06-07 18:33 | Emergency Department Record ---
History of Present Illness - General Stated Complaint: ABDOMINAL PAIN Time Seen by Provider: 06/07/18 18:25 Source: Patient Mode of Arrival: Ambulatory Limitations: No limitations - History of Present Illness Initial Comments: 68 yo male presents with diffuse abdominal pain for the last 24 hours. He states the pain comes and goes and is all over no localizing on one side or the other. NO vomiting. NO fever. No diarrhea. No constipation. He denies any abdominal surgery history. He was seen at the [facility] and sent to the ED for a additional work up. NO back pain radiation. No dysuria. MD Complaint: Abdominal pain -: Days(s) (1) Location: Periumbilical Radiation: Epigastric, Suprapubic, LUQ, RUQ, LLQ, RLQ Severity: Moderate Quality: Cramping Consistency: Intermittent Improves With: Nothing Worsens With: Eating Context: Other Associated Symptoms: Anorexia - Related Data Previous Rx's Medication Instructions Recorded Hyoscyamine Sulfate [Levsin-Sl] 0.125 mg SL BID #15 tab.subl 06/07/18 Allergies Allergy/AdvReac Type Severity Reaction Status Date / Time hyoscyamine sulfate Allergy Unknown PT UNSURE Verified 06/07/18 18:34 [From Levsinex] OF REACTION prednisone Allergy Unknown shakes Verified 06/07/18 18:34 meloxicam [From Mobic] AdvReac Severe internal Verified 06/07/18 18:34 bleeding dicyclomine HCl [From Bentyl] AdvReac Intermediate nausea and Verified 06/07/18 18:34 vomiting levofloxacin [From Levaquin] AdvReac Intermediate nausea and Verified 06/07/18 18:34 vomiting propoxyphene napsylate AdvReac Intermediate nausea and Verified 06/07/18 18:34 [From Darvocet-N] vomiting simvastatin [From Zocor] AdvReac Intermediate muscle Verified 06/07/18 18:34 aches Review of Systems Constitutional: Denies: Chills, Fever, Malaise, Weakness Eyes: Denies: Eye discharge, Eye pain, Photophobia, Vision change ENT: Denies: Congestion, Throat pain Respiratory: Denies: Cough, Dyspnea, Hemoptysis, Stridor, Wheezes Cardiovascular: Denies: Chest pain, Palpitations, Syncope Endocrine: Denies: Fatigue, Polydipsia, Polyuria Gastrointestinal: Reports: Abdominal pain, Nausea. Denies: Constipation, Diarrhea, Hematemesis, Hematochezia, Vomiting Genitourinary: Denies: Dysuria, Frequency, Hematuria Musculoskeletal: Denies: Arthralgia, Back pain, Joint swelling, Myalgia Skin: Denies: Bruising, Change in color, Rash Neurological: Denies: Headache Psychiatric: Denies: Anxiety Hematological/Lymphatic: Denies: Blood Clots, Easy bleeding, Easy bruising, Swollen glands Past Medical History - SOCIAL HISTORY Smoking Status: Former smoker Drug Use: None - RESPIRATORY Hx Respiratory Disorders: Yes Hx Asthma: Yes Hx COPD: Yes Hx Sleep Apnea: Yes - CARDIOVASCULAR Hx Cardio Disorders: Yes Hx Hypertension: Yes Comment:: high cholesterol - NEURO Hx Neuro Disorders: Yes Hx Dizziness: Yes - GI Hx GI Disorders: Yes Hx Diverticulitis: Yes Hx GI Bleed: Yes (2011/) Hx Reflux: Yes - Hx Genitourinary Disorders: Yes Hx Prostate Problems: Yes - ENDOCRINE Hx Endocrine Disorders: No - MUSCULOSKELETAL Hx Musculoskeletal Disorders: Yes Hx Arthritis: Yes - PSYCH Hx Psych Problems: No Comment:: doesnt like being i confining spaces - HEMATOLOGY/ONCOLOGY Hx Hematology/Oncology Disorders: Yes Hx Blood Transfusions: Yes (2011/) Comment:: pt states hx of internal bleeding Family Medical History Hx Alcohol Use: Father Hx Diabetes: Mother Hx Heart Disease: Father Hx Liver Disease: Mother, Grandparents *Liver Comment: kendra, bile duct surgery Physical Exam - General General Appearance: Alert, Oriented x3, Cooperative, No acute distress Limitations: No limitations - Head Head exam: Atraumatic, Normal inspection - Eye Eye exam: Normal appearance, PERRL. negative: Conjunctival injection, Periorbital swelling, Scleral icterus - ENT ENT exam: Normal exam, Mucous membranes moist Ear exam: Normal external inspection Nasal Exam: Normal inspection Mouth exam: Normal external inspection - Neck Neck exam: Normal inspection - Respiratory Respiratory exam: Normal lung sounds bilaterally. negative: Accessory muscle use, Chest wall tenderness, Decreased breath sounds, Prolonged expiratory, Respiratory distress, Rhonchi, Stridor, Wheezes - Cardiovascular Cardiovascular Exam: Regular rate, Normal rhythm, Normal heart sounds - GI/Abdominal GI/Abdominal exam: Soft, Normal bowel sounds, Tenderness (Very soft, minimally tender, soft in all quadrants, normal BS). negative: Diminished bowel sounds, Distended, Guarding, Hernia, Hyperactive bowel sounds, Organomegaly, Pulsatile mass, Rebound, Rigid - Rectal Rectal exam: Deferred - exam: Deferred - Extremities Extremities exam: Normal inspection - Back Back exam: Denies: CVA tenderness (R), CVA tenderness (L), Tenderness - Neurological Neurological exam: Alert, Oriented X3 - Psychiatric Psychiatric exam: Normal affect, Normal mood - Skin Skin exam: Dry, Intact, Normal color, Warm Course - Reevaluation(s) Reevaluation #1: EMR reviewed Normal Renal and Liver function The WBC count was 14. Lipase added 06/07/18 18:32 06/07/18 18:59 Lipase is normal 06/07/18 21:[address] scan demonstrated an area in the small bowel with possible mild swelling that may represent an ileitis. We discussed the results, home care, reasons to return immediately to the ED and close follow up We discussed he is to call his PCP tomorrow for close follow up of the symptom 06/08/18 00:13 Disposition Disposition: Discharge Clinical Impression: Flank pain, Ileitis Disposition: Home, Self-Care Condition: (1) Good Instructions: Abdominal Pain (ED) Additional Instructions: Call your doctor for the next available follow up appointment Return to the ER for a recheck if worse, any new concerns or questions Return to the ER immediately if you have any fever, chills, vomiting or blood in the stools Return tomorrow for a recheck if not improving Otherwise call your doctor to be seen this week in close follow up Keep your diet very simple with liquids, soups, broths, yogurt and avoid heavy or fatty foods. Review this ER visit and the tests performed with your family doctor Prescriptions: Hyoscyamine Sulfate [Levsin-Sl] 0.125 mg SL BID #15 tab.subl Referrals: IAN ALCAZAR [MEDICAL DOCTOR] - Forms: Patient Portal Access Time of Disposition: 21:37 Quality - Quality Measures Quality Measures: N/A - Blood Pressure Screening Does Patient Have Any of the Following: No Blood Pressure Classification: Normal BP Reading Systolic Measurement: 117 Diastolic Measurement: 78 Screening for High Blood Pressure: < Normal BP, F/U Not Required > [G8783]
--- NOTE | 2018-06-07 19:34 | Emergency Department Record ---
History of Present Illness - General Chief Complaint: Abdominal Pain Stated Complaint: ABDOMINAL PAIN Time Seen by Provider: 06/07/18 18:25 Source: Patient Mode of Arrival: Ambulatory Limitations: No limitations - History of Present Illness MD Complaint: Abdominal pain Onset/Timin -: Days(s) (1) Location: Periumbilical Radiation: Epigastric, Suprapubic, LUQ, RUQ, LLQ, RLQ Severity: Moderate Quality: Cramping Consistency: Intermittent Improves With: Nothing Worsens With: Eating Context: Other Associated Symptoms: Anorexia - Related Data Allergies Allergy/AdvReac Type Severity Reaction Status Date / Time hyoscyamine sulfate Allergy Unknown PT UNSURE Verified 06/07/18 18:34 [From Levsinex] OF REACTION prednisone Allergy Unknown shakes Verified 06/07/18 18:34 meloxicam [From Mobic] AdvReac Severe internal Verified 06/07/18 18:34 bleeding dicyclomine HCl [From Bentyl] AdvReac Intermediate nausea and Verified 06/07/18 18:34 vomiting levofloxacin [From Levaquin] AdvReac Intermediate nausea and Verified 06/07/18 18:34 vomiting propoxyphene napsylate AdvReac Intermediate nausea and Verified 06/07/18 18:34 [From Darvocet-N] vomiting simvastatin [From Zocor] AdvReac Intermediate muscle Verified 06/07/18 18:34 aches Travel Screening - Travel/Exposure Within Last 30 Days Have you traveled within the last 30 days?: No - Travel/Exposure Within Last Year Have you traveled outside the [place] in the last year?: No - Additonal Travel Details Have you been exposed to anyone with a communicable illness?: No - Travel Symptoms Symptom Screening: None Review of Systems Constitutional: Denies: Chills, Fever, Malaise, Weakness Eyes: Denies: Eye discharge, Eye pain, Photophobia, Vision change ENT: Denies: Congestion, Throat pain Respiratory: Denies: Cough, Dyspnea, Hemoptysis, Stridor, Wheezes Cardiovascular: Denies: Chest pain, Palpitations, Syncope Endocrine: Denies: Fatigue, Polydipsia, Polyuria Gastrointestinal: Reports: Abdominal pain, Nausea. Denies: Constipation, Diarrhea, Hematemesis, Hematochezia, Vomiting Genitourinary: Denies: Dysuria, Frequency, Hematuria Musculoskeletal: Denies: Arthralgia, Back pain, Joint swelling, Myalgia Skin: Denies: Bruising, Change in color, Rash Neurological: Denies: Headache Psychiatric: Denies: Anxiety Hematological/Lymphatic: Denies: Blood Clots, Easy bleeding, Easy bruising, Swollen glands Past Medical History - SOCIAL HISTORY Smoking Status: Former smoker Drug Use: None - RESPIRATORY Hx Respiratory Disorders: Yes Hx Asthma: Yes Hx COPD: Yes Hx Sleep Apnea: Yes - CARDIOVASCULAR Hx Cardio Disorders: Yes Hx Hypertension: Yes Comment:: high cholesterol - NEURO Hx Neuro Disorders: Yes Hx Dizziness: Yes - GI Hx GI Disorders: Yes Hx Diverticulitis: Yes Hx GI Bleed: Yes (2011/) Hx Reflux: Yes - Hx Genitourinary Disorders: Yes Hx Prostate Problems: Yes - ENDOCRINE Hx Endocrine Disorders: No - MUSCULOSKELETAL Hx Musculoskeletal Disorders: Yes Hx Arthritis: Yes - PSYCH Hx Psych Problems: No Comment:: doesnt like being i confining spaces - HEMATOLOGY/ONCOLOGY Hx Hematology/Oncology Disorders: Yes Hx Blood Transfusions: Yes (2011/) Comment:: pt states hx of internal bleeding Family Medical History Hx Alcohol Use: Father Hx Diabetes: Mother Hx Heart Disease: Father Hx Liver Disease: Mother, Grandparents *Liver Comment: kendra, bile duct surgery Physical Exam - General Limitations: No limitations Course Vital Signs 06/07/18 06/07/18 18:40 19:22 Temperature 97.7 F Pulse Rate 82 Pulse Rate [ 75 [employer] ] Respiratory 18 Rate Blood Pressure 138/86 Blood Pressure 146/97 [Left Arm] Pulse Ox 97 100 - Reevaluation(s) Reevaluation #1: 06/07/18 20:48 Medical Decision Making - Lab Data Lab Results 06/07/18 Range/Units 17:21 Lipase 38 (13-60) U/L Disposition Clinical Impression: Flank pain Referrals: IAN ALCAZAR [MEDICAL DOCTOR] - Forms: Patient Portal Access Quality - Quality Measures Quality Measures: Adult Sinusitis (>18yr) - Adult Sinusitis: Abx Overuse Quality Measure: Measure #331: Adult Sinusitis Abx Overuse ICD10 Codes Entered: Yes - Adult Sinusitis: Bacterial w/Abx Quality Measure: Measure #332: Adult Bacterial Sinusitis Correct Abx Use ICD10 Codes Entered: Yes - Adult Sinusitis: CT Use Quality Measure: Measure #333: Adult Sinusitis ICD10 Codes Entered: Yes - Blood Pressure Screening Does Patient Have Any of the Following: No Blood Pressure Classification: Pre-Hypertensive BP Reading Systolic Measurement: 138 Diastolic Measurement: 86 Screening for High Blood Pressure: < Pre-Hypertensive BP, F/U Documented > [ G8950]
[2018-06-07] MEDS ORDERED: DICYCLOMINE HCL 10 MG CAPSULE PO ONE (21:49)
[2018-06-07] MEDS ORDERED: HYOSCYAMINE SULFATE ODT 0.125 MG TAB.SUBL SL ONE (21:54)
== END 2018-06-07 22:13 | disposition home or self-care (01) ==
LOC: ER 18:18
DX: K52.9 Noninfective gastroenteritis and colitis, unspecified (principal); R10.84 Generalized abdominal pain; I10 Essential (primary) hypertension; Z87.891 Personal history of nicotine dependence
CPT/HCPCS: 99284 ×2; 96374; 83690; 85025; 80053; 74019; 74177; Q9967; J1980; J2405; J7030

== ENCOUNTER 2018-08-17 01:30 | Observation (INO) | payer MEDICARE, OTHER ==
[2018-08-17] MEDS ORDERED: 0.9 % SODIUM CHLORIDE 1,000 ML BAG IV ONE (01:34)
[2018-08-17] MEDS ORDERED: ONDANSETRON HCL IV 4 MG/2 ML VIAL IVP ONE (01:34)
[2018-08-17] MEDS ORDERED: MORPHINE SULFATE 10 MG/ML VIAL IVP ONE (01:38)
--- NOTE | 2018-08-17 01:40 | Emergency Department Record ---
History of Present Illness - General Chief Complaint: Abdominal Pain Stated Complaint: STOMACH PAIN Time Seen by Provider: 08/17/18 01:32 Source: Patient, Family Mode of Arrival: Ambulatory Limitations: No limitations - History of Present Illness Initial Comments: 68 yo male presents with abdominal pain over the last 24 hours. He feels a bloated feeling. He has had similar recurrent pain in the last few months years. The pain comes and goes in waves. No blood in the stools. No diarrhea. No history of abdominal surgery. Prior colonoscopy demonstrated mild diverticulosis. CT in May demonstrated possible distal small bowel inflammation. He has had several CT scans for pain in the past. He reports he has had an EGD as well that did not show the cause of the pain. He had video enterography as well than did not find a cause for his pain. MD Complaint: Abdominal pain -: Days(s) (1) Location: Diffuse, Epigastric Radiation: Epigastric Migration to: Epigastric, Periumbilical Severity: Severe Quality: Cramping Consistency: Intermittent Improves With: Nothing Worsens With: Eating Context: Other Associated Symptoms: Anorexia - Related Data Allergies Allergy/AdvReac Type Severity Reaction Status Date / Time prednisone Allergy Unknown shakes Verified 08/17/18 01:41 meloxicam [From Mobic] AdvReac Severe internal Verified 08/17/18 01:41 bleeding dicyclomine HCl [From Bentyl] AdvReac Intermediate nausea and Verified 08/17/18 01:41 vomiting levofloxacin [From Levaquin] AdvReac Intermediate nausea and Verified 08/17/18 01:41 vomiting propoxyphene napsylate AdvReac Intermediate nausea and Verified 08/17/18 01:41 [From Darvocet-N] vomiting simvastatin [From Zocor] AdvReac Intermediate muscle Verified 08/17/18 01:41 aches Review of Systems Constitutional: Denies: Chills, Fever, Malaise, Weakness Eyes: Denies: Eye discharge ENT: Denies: Congestion, Throat pain Respiratory: Denies: Cough, Dyspnea Cardiovascular: Denies: Chest pain, Palpitations, Syncope Endocrine: Denies: Fatigue, Polydipsia, Polyuria Gastrointestinal: Reports: Abdominal pain, Nausea, Vomiting. Denies: Diarrhea Genitourinary: Denies: Dysuria, Frequency, Hematuria Musculoskeletal: Denies: Arthralgia, Back pain, Joint swelling, Myalgia Skin: Denies: Bruising, Change in color, Rash Neurological: Denies: Confusion, Headache Psychiatric: Denies: Anxiety Hematological/Lymphatic: Denies: Blood Clots, Easy bleeding, Easy bruising, Swollen glands Past Medical History - SOCIAL HISTORY Smoking Status: Former smoker Drug Use: None - RESPIRATORY Hx Respiratory Disorders: Yes Hx Asthma: Yes Hx COPD: Yes Hx Sleep Apnea: Yes - CARDIOVASCULAR Hx Cardio Disorders: Yes Hx Hypertension: Yes Comment:: high cholesterol - NEURO Hx Neuro Disorders: Yes Hx Dizziness: Yes - GI Hx GI Disorders: Yes Hx Diverticulitis: Yes Hx GI Bleed: Yes (2011 r/t ) Hx Reflux: Yes - Hx Genitourinary Disorders: Yes Hx Prostate Problems: Yes - ENDOCRINE Hx Endocrine Disorders: No - MUSCULOSKELETAL Hx Musculoskeletal Disorders: Yes Hx Arthritis: Yes - PSYCH Hx Psych Problems: No Comment:: doesnt like being i confining spaces - HEMATOLOGY/ONCOLOGY Hx Hematology/Oncology Disorders: Yes Hx Blood Transfusions: Yes (2011/) Comment:: pt states hx of internal bleeding Family Medical History Hx Alcohol Use: Father Hx Diabetes: Mother Hx Heart Disease: Father Hx Liver Disease: Mother, Grandparents *Liver Comment: kendra, bile duct surgery Physical Exam - General General Appearance: Alert, Oriented x3, Cooperative, No acute distress Limitations: No limitations - Head Head exam: Atraumatic, Normal inspection - Eye Eye exam: Normal appearance, PERRL. negative: Conjunctival injection, Scleral icterus - ENT ENT exam: Normal exam, Mucous membranes moist Ear exam: Normal external inspection Nasal Exam: Normal inspection Mouth exam: Normal external inspection - Neck Neck exam: Normal inspection - Respiratory Respiratory exam: Normal lung sounds bilaterally. negative: Respiratory distress - Cardiovascular Cardiovascular Exam: Regular rate, Normal rhythm, Normal heart sounds - GI/Abdominal GI/Abdominal exam: Soft, Normal bowel sounds, Tenderness (soft but diffusely tender). negative: Distended - Rectal Rectal exam: Deferred - exam: Deferred - Extremities Extremities exam: Normal inspection - Back Back exam: Denies: CVA tenderness (R), CVA tenderness (L) - Neurological Neurological exam: Alert, Oriented X3 - Psychiatric Psychiatric exam: Normal affect, Normal mood - Skin Skin exam: Dry, Intact, Normal color, Warm Course - Reevaluation(s) Reevaluation #1: Vitals reviewed No acute abnormality EMR reviewed. Prior ED visit, CT, and colonoscopy. 08/17/18 01:40 08/17/18 02:41 The CBC was reviewed The WBC is 18 The CMP was negative for significant abnormality The lipase is normal The patient is improved regarding pain level 08/17/18 03:[address] was reviewed. Small bowel obstruction due to SB wall thickening in the RLQ. Recommend admission for SBO. Medical Decision Making - Lab Data Result diagrams: 08/17/18 06:13 08/17/18 01:55 Disposition Disposition: Admit Clinical Impression: Abdominal pain, Small bowel obstruction Disposition: Still a Patient at [facility] Decision to Admit: Admit from ER Decision to Admit Date: 08/17/18 Decision to Admit Time: 03:20 Condition: (2) Stable Time of Disposition: 03:20 Quality - Quality Measures Quality Measures: N/A - Blood Pressure Screening Does Patient Have Any of the Following: No Blood Pressure Classification: Pre-Hypertensive BP Reading Systolic Measurement: 127 Diastolic Measurement: 81 Screening for High Blood Pressure: < Pre-Hypertensive BP, F/U Documented > [ G8950] Pre-Hypertensive Follow-up Interventions: Referral to alternative/primary care provider.
[2018-08-17 01:59] LABS: HEMATOCRIT 52.7 % (42.0-52.0); HEMOGLOBIN 17.9 gm/dl (14.0-18.0); MEAN CELL VOLUME 87.4 fl (81-97); MEAN PLATELET VOLUME 10.1 fl (7.4-10.4); PLATELET COUNT 281 K/uL (130-400); RED BLOOD COUNT 6.03 M/uL (4.40-5.70); WHITE BLOOD COUNT W/O DIFF 18.1 K/uL (4.2-12.2)
[2018-08-17 02:00] LABS: MEAN CORPUSCULAR HEMOGLOBIN 29.6 pg (27-33)
[2018-08-17 02:14] LABS: BLOOD UREA NITROGEN 12 mg/dL (8-23)
[2018-08-17 02:15] LABS: EST GLOMERULAR FILTRATION RATE > 60 mL/min; LIPASE 27 U/L (13-60); TOTAL PROTEIN 7.7 g/dL (6.6-8.7)
[2018-08-17 02:17] LABS: GLUCOSE,RANDOM 121 mg/dL (74-109)
[2018-08-17 02:20] LABS: ALB/GLOB RATIO 1.9 (1.1-1.8); ALKALINE PHOSPHATASE 119 U/L (40-129); ALT/SGPT 25 U/L (<41); AST/SGOT 26 U/L (10.0-50.0)
[2018-08-17 02:58] LABS: URINE APPEARANCE CLEAR; URINE BILIRUBIN NEGATIVE (NEGATIVE); URINE BLOOD NEGATIVE (NEGATIVE); URINE COLOR YELLOW; URINE GLUCOSE (UA) NEGATIVE (NEGATIVE); URINE KETONE 15 mg/dL (NEGATIVE); URINE LEUKOCYTE ESTERASE NEGATIVE (NEGATIVE); URINE NITRITE NEGATIVE (NEGATIVE); URINE PROTEIN NEGATIVE (NEGATIVE); URINE UROBILINOGEN 0.2 E.U./dL (0.20 - 1.00)
[2018-08-17] MEDS ORDERED: MORPHINE SULFATE 10 MG/ML VIAL IVP PRN (03:45)
[2018-08-17] MEDS ORDERED: ONDANSETRON HCL IV 4 MG/2 ML VIAL IVP PRN (03:45)
[2018-08-17] MEDS: 0.9 % SODIUM CHLORIDE 1000ML 1,000 ML IV PRN ×3 (04:25→23:00)
[2018-08-17 06:30] LABS: HEMATOCRIT 45.6 % (42.0-52.0); HEMOGLOBIN 15.1 gm/dl (14.0-18.0); MEAN CELL VOLUME 89.9 fl (81-97); MEAN CORPUSCULAR HEMOGLOBIN 29.8 pg (27-33); MEAN CORPUSCULAR HGB CONC 33.1 g/dl (32-36); MEAN PLATELET VOLUME 10.4 fl (7.4-10.4); PLATELET COUNT 277 K/uL (130-400); RED BLOOD COUNT 5.07 M/uL (4.40-5.70); RED CELL DISTRIBUTION WIDTH 15.2 % (11.5-14.5); WHITE BLOOD COUNT W/O DIFF 15.8 K/uL (4.2-12.2)
[2018-08-17] MEDS: BREO (FLUTICASONE/VILANTEROL) 100MCG/25MCG INHALER INH SCH (09:36)
--- NOTE | 2018-08-17 10:11 | CT SCAN REPORT ---
EXAM: CT OF THE ABDOMEN AND PELVIS WITH CONTRAST HISTORY: UPPER ABDOMINAL PAIN, VOMITING, BELCHING, HISTORY OF DIVERTICULITIS. TECHNIQUE: CT of the abdomen and pelvis was obtained with 100 ml Omnipaque 300 intravenous contrast. Comparison: CT of the abdomen and pelvis 06/07/18, 10/01/17. FINDINGS: Stable 2 mm noncalcified right middle lobe nodule. Small hiatal hernia. Unremarkable appearance of the liver, gallbladder, adrenal glands, and pancreas. Small calcific granulomas in the spleen. Ovoid soft tissue nodule posterior to the gastric fundus, stable, possibly a splenule or prominent lymph node. Symmetric renal perfusion. No hydronephrosis. Fluid in the stomach. Dilated fluid filled mid and distal small bowel loops, measuring up to 3.3 cm in diameter. The chopra of the ileum distal to the level of dilation appear circumferentially thickened. Sigmoid colon diverticulosis without evidence of acute diverticulitis. Small amount of stool in the cecum and ascending colon. The distal colon is collapsed. No free air or free fluid. Unremarkable appearance of the urinary bladder. Stable mild prominence of the prostate. Mild calcification of the aortoiliac arterial access without evidence of aneurysm or dissection. Small bilateral fat containing inguinal hernias, slightly larger on the right. Scattered degenerative changes in the lumbar spine. No acute osseous findings. There is also a small fat containing umbilical hernia. IMPRESSION: 1. MILDLY DILATED FLUID FILLED MID AND DISTAL SMALL BOWEL LOOPS SUSPICIOUS FOR SMALL BOWEL OBSTRUCTION. THE ILEUM DISTAL TO THE LEVEL OF DILATATION APPEARS CIRCUMFERENTIALLY THICKENED, WHICH IS NONSPECIFIC, BUT MAY BE SEEN WITH INFECTIOUS OR INFLAMMATORY ENTERITIS. 2. COLONIC DIVERTICULOSIS WITHOUT EVIDENCE OF ACUTE DIVERTICULITIS. 3. SMALL HIATAL HERNIA. SMALL BILATERAL FAT CONTAINING INGUINAL HERNIAS. TINY FAT CONTAINING UMBILICAL HERNIA. JOB NUMBER: [id number] [facility]
--- NOTE | 2018-08-17 10:15 | RADIOLOGY REPORT ---
EXAM: ABDOMEN, TWO VIEWS HISTORY: SMALL BOWEL OBSTRUCTION. TECHNIQUE: Upright and supine AP views of the abdomen were obtained. Comparison: CT of the abdomen and pelvis 08/17/18. FINDINGS: Air filled mildly dilated small bowel loops in the central abdomen measuring up to 3.6 cm. Air fluid levels are noted on the upright view. No visible pneumoperitoneum. Stool noted in the ascending colon. There is a a focal hypodensity in the low pelvis, likely excreted contrast within the urinary bladder. IMPRESSION: MILDLY DILATED SMALL BOWEL LOOPS WITH AIR FLUID LEVELS, SUGGESTIVE OF SMALL BOWEL OBSTRUCTION. NO VISIBLE PNEUMOPERITONEUM. JOB NUMBER: [id number] [facility]
[2018-08-17] MEDS: ENOXAPARIN 40 MG/0.4 ML SYR SQ SCH (11:47)
--- NOTE | 2018-08-18 08:03 | RADIOLOGY REPORT ---
EXAM: ABDOMEN, ONE VIEW HISTORY: FOLLOW-UP SMALL BOWEL OBSTRUCTION. TECHNIQUE: Two AP supine views of the abdomen were obtained. Comparison: Two view radiographic examination of the abdomen dated 08/17/18. FINDINGS: Gas and stool are noted throughout a nondilated colon to the level of the rectum. The previously demonstrated gas distended, mildly dilated small bowel loops are no longer visualized. No new mass, organomegaly, or suspicious calcification. Degenerative changes are again noted within the visualized spine and sacroiliac joints. IMPRESSION: INTERVAL RESOLUTION OF THE PREVIOUSLY DEMONSTRATED MILDLY DILATED SMALL BOWEL LOOPS. NO NEW BOWEL DILATATION, MASS, NOR SUSPICIOUS CALCIFICATION. JOB NUMBER: [id number] [facility]
[2018-08-18] MEDS: BREO (FLUTICASONE/VILANTEROL) 100MCG/25MCG INHALER INH SCH (09:29)
--- NOTE | 2018-08-18 10:20 | History and Physical Report ---
DATE OF ADMISSION: CHIEF COMPLAINT: Abdominal pain, bloating, and vomiting. HISTORY OF PRESENT ILLNESS: This 68-year-old male presented with 36 hours of bloating and abdominal pain, it started after Tuesday night after dinner. He ate dinner and it developed during the night. He came into the emergency department at 1:00 a.m. today. He was seen in the emergency department by Dr. Ohara with a CT of the abdomen, showing small bowel obstruction and thickening of the distal colon. He has had an EGD, a colonoscopy, and a camera swallow, video enterography done prior to this. He has had a history of diverticulitis, no abdominal surgeries, and he has had this before 3 or 4 times and it seemed to resolve with conservative therapy. A consult with Dr. Alves was made and Dr. Ohara talked to Dr. Alves and he said he would see him today. MEDICAL HISTORY: COPD, sleep apnea, hypertension, hypercholesterolemia, GERD, history of diverticulitis, diverticulosis, GI bleed from [facility] in 2011, arthritis. SURGICAL HISTORY: Left knee scopes x2, tonsillectomy, lens implant 2011. CURRENT MEDICATIONS: 1. He is using Azithromycin 250 mg 3 times a week to prevent bronchitis and COPD exacerbations. 2. He uses Ventolin HFI 1 to 2 puffs q.4 hours p.r.n. rescue breathing. 3. He also uses Advair 100/50 1 puff b.i.d. 4. Flonase nasal spray p.r.n. 5. Levsin 0.125 mg sublingual b.i.d. p.r.n. 6. He has a nebulizer with DuoNeb. He has not had much need lately to use any inhalers, except for his Advair. 7. Lovastatin 20 mg at bedtime. 8. Nasonex 2 sprays in each nostril per day p.r.n. 9. Omeprazole 20 mg per day. 10. MiraLax 17 grams daily. ALLERGIES: PREDNISONE causes shakes. MELOXICAM caused bleeding. BENTYL caused nausea and vomiting. LEVOFLOXACIN caused nausea and vomiting. DARVOCET. SYMVASTATIN causes muscle pains. SOCIAL HISTORY: Smoking, he is a former smoker. Rare alcohol use. No drug use. FAMILY HISTORY: Father had alcohol problems, heart disease. Mother had diabetes, liver disease. Grandparents had liver disease, jaundice, bile duct surgery. SYSTEMS REVIEW: HEENT: No upper respiratory infection symptoms, cough, cold, or congestion. Cardiovascular: No chest pain, palpitations, arrhythmias. Respiratory: No difficulty breathing at this time. He has a history of COPD and smoking history, but he stopped smoking. Gastrointestinal: See chief complaint. He has abdominal bloating, abdominal pain, vomiting, and no blood in the vomit, blood in the stool. His last bowel movement was yesterday prior to coming to the hospital. Genitourinary: No dysuria, hematuria, frequency, or burning on urination. Musculoskeletal: He has arthritis in his low back and joints in the knees and the hips. Neurologic: No CVA paralysis or paresthesias. Endocrine: No diabetes or thyroid disease. Integument: No rash, ulcer, change in moles, or yellow skin. PHYSICAL EXAMINATION: GENERAL: Height is 5 feet 10 inches. Weight is 177 pounds 14 ounces standing on the scale. VITAL SIGNS: Temperature is 98, blood pressure is 127/81, pulse is 77, respiratory rate is 18, room air pulse OX is 100%. HEENT: Pupils are equal, round, and reactive to light and accomodation. Extraocular muscles intact. Throat is clear. Nose is clear. Tympanic membranes are clear. NECK: Supple. No JVD or distention, no hepatojugular reflux, no carotid bruits. Thyroid is smooth. HEART: Regular rate and rhythm without murmurs, clicks, rubs, or gallops. LUNGS: Clear to auscultation. Breath sounds are equal bilaterally. ABDOMEN: Soft, nontender on palpation. He had morphine approximately 3 hours before. No rebound, rigidity, or peritoneal signs. MUSCULOSKELETAL: No pitting edema, no cyanosis, no clubbing. Full range of motion. Peripheral pulses good. BREASTS: Normal male breasts. RECTAL: Deferred. GENITALIA: Deferred. NEUROLOGIC: Cranial nerve II through XII intact. No gross defects. Sensation normal, strength normal. Deep tendon reflexes equal bilaterally. Babinski negative. MENTAL STATUS: Alert and oriented x3. IMPRESSION: 1. Abdominal pain. 2. Vomiting. 3. Small bowel obstruction seen on CT scan in the emergency department. 4. History of COPD. 5. History of tobacco use. 6. History of hypercholesterolemia. PLAN: IV fluids, abdominal x-ray today, and Dr. Alves consult. [facility]
--- NOTE | 2018-08-18 10:33 | Discharge Note ---
VTE H&P Assessment - Risk for VTE Risk for VTE: Yes Risk Level: Moderate Risk Assessment Date: 08/17/18 Risk Assessment Time: 19:00 VTE Orders Placed or Will Be Placed: Yes Discharge Medications - Discharge Medications Home Medications: Ambulatory Orders Omeprazole 20 mg PO DAILYAC 06/10/15 [Last Taken 08/17/18] Mometasone Furoate [Nasonex] 2 spray NS QD spray 05/18/16 [Last Taken 06/07/18] Fexofenadine HCl [Vicky Allergy] 60 mg PO ASDIR 05/17/17 [Last Taken 08/17/18] Polyethylene Glycol 3350 [Miralax] 17 gm PO DAILY 07/20/17 [Last Taken 08/17/18] Discharge Note - Date Date of Discharge Note: 08/18/18 Disposition: Home, Self-Care Condition: (2) Stable Additional Instructions: Appointment with NISHI Steward at [facility] Tuesday08/30/18 at 9:20am. follow up with Dr. Alves in the [facility] clinic on August 28Tuesday gradually increase diet Referrals: Hannah Hairston, N.P. [Primary Care Provider] - Forms: Patient Portal Access
[2018-08-18] MEDS: ENOXAPARIN 40 MG/0.4 ML SYR SQ SCH (10:40)
--- NOTE | 2018-08-21 09:41 | Discharge Summary ---
DATE OF SERVICE: 08/18/2018. DISCHARGE DIAGNOSES: 1. Small bowel obstruction, resolved. 2. Abnormality of the CT of the abdomen. 3. Chronic obstructive pulmonary disease. ATTENDING PHYSICIAN: Roque Hickey DO. REASON FOR HOSPITALIZATION: This 68-year-old male presented to the emergency department with abdominal pain that started 24 hours prior to coming in. He felt bloated. He had similar episodes before over the last few months and years. Pain comes and goes in waves. No blood in the stool. No diarrhea. No history of abdominal surgery. Prior colonoscopy, demonstrating mild diverticulosis. CT in May demonstrated possible distal small bowel inflammation. He has had several CT scans for pain in the past. He reports he has had an EGD, as well, that did not show the cause of the pain. He had a video enterography, as well, then did not find the cause for the pain with that. He was admitted through the emergency department with Dr. Ohara for a consult with Dr. Alves. SIGNIFICANT FINDINGS: Laboratory: WBC on discharge was 15,800, hemoglobin was 15.1, segs were 87, lymphs were 10. The chemistries revealed glucose was a little bit up when not fasting. Lipase was normal at 27. BUN is 12, creatinine is 1.0, potassium is 4.2. Urine was essentially negative, ketones 15 mg/dL. The CT of the abdomen showed mildly dilated, fluid filled mid and distal small bowel loops, suspicious for small bowel obstruction. The ileum distal to the level of dilation appears circumferentially thickened, which is nonspecific, but may be seen with infectious or inflammatory enteritis. Colonic diverticulosis without evidence of acute diverticulitis, small hiatal hernia, small bilateral fat-containing inguinal hernias, tiny fat-containing umbilical hernias. He had followup x-rays on the day of discharge. The abdominal flat plate was negative with no air-fluid levels, stool all the way down to the colon, and gas through the colon and rectum. CURRENT MEDICATIONS: Continue his home medications of: 1. Omeprazole 20 mg daily. 2. Nasonex 2 sprays daily. 3. Lovastatin 20 mg daily. 4. DuoNeb q.4 hours p.r.n. 5. Levsin 0.125 mg sublingual b.i.d. 6. Robinul 1 mg t.i.d. 7. Advair 100/50 1 puff b.i.d. 8. Flonase 1 spray daily each side of the nose. 9. Vicky 60 mg daily p.r.n. 10. Azithromycin 3 times a week to prevent bronchitis and COPD flare-ups. 11. Ventolin rescue inhaler 2 puffs q.4 hours p.r.n. HOSPITAL COURSE: He much improved. He had IV fluids initially. Therapy provided: He was given IV fluids, gut rest. He was then gradually started on clear liquids and tolerated that nicely on the day of discharge. Dr. Alves consultation was done. He would like to see the patient in the outpatient clinic for a laparoscopic exam of this area that is thickened in the distal ileum. CONDITION AT DISCHARGE: Much improved. However, he needs followup at the clinic to get a laparoscopic exam done of the area. DISCHARGE INSTRUCTIONS: Follow up with Dr. Aguilar and Hannah Hairston, his nurse practitioner, in 1 week[address] Follow up with Dr. Alves as scheduled, possibly 08/28/2018, on a Tuesday, for a laparoscopic exam because of the abnormal CT scan as an outpatient. OTIS
--- NOTE | 2018-08-21 09:41 | Medical Records Consult ---
DATE OF SERVICE: 08/18/2018. DATE OF CONSULTATION: 08/18/2018. REQUESTING PHYSICIAN: Roque Hickey DO. REASON FOR CONSULTATION: Small bowel obstruction. INDICATIONS: Patient is a 68-year-old male who presented to the hospital yesterday with a 24-hour history of abdominal pain. He described this as generalized in his abdomen with some cramping. He states he had some waves of nausea, as well. He had a similar episode about [address] scan at that time showed some inflammation of his terminal ileum with obstructive-type findings. This did resolve conservatively. Due to the CT scan findings of possible terminal ileitis, he underwent an upper and lower endoscopy with terminal ileal intubation, which was negative. He underwent a CT enterography, which was negative, as well. On admission here yesterday, CT scan very similar to the prior with partial small bowel obstructive picture. He had gas and stool in his colon, but did show ongoing inflammation of his terminal ileum. Currently, he feels well. He has no pain. He has no nausea. Followup x-ray this morning showed a normal gas pattern with again gas and stool in his colon. PAST MEDICAL HISTORY: Significant for diabetes. PAST SURGICAL HISTORY: Right knee arthroscopy. MEDICATIONS: Currently takes oral diabetic medication. ALLERGIES: He has allergies to PENICILLIN, MELOXICAM, LEVAQUIN, DARVOCET, ZOCOR. SOCIAL HISTORY: Denies any tobacco or alcohol usage. PHYSICAL EXAMINATION: VITAL SIGNS: Stable. He is afebrile. HEART: Regular rate and rhythm. LUNGS: Clear. ABDOMEN: Soft, nontender, nondistended. Bowel sounds are noted. He does have a small, incarcerated umbilical hernia noted. EXTREMITIES: No trace of edema. DIAGNOSTIC DATA: Laboratory values and CT scan were reviewed from this admission. He came in yesterday with a white blood cell count of 18,000. It is down to 15,000 today. His chemistries appear normal. IMPRESSION: Partial small bowel obstruction of an unclear etiology. Upper and lower endoscopy are negative. CT enterography is negative. I did speak with the Department of Gastroenterology, who would not empirically treat him for Crohn disease without a definitive diagnosis. I did offer him a laparoscopy to evaluate his terminal ileum from a laparoscopic perspective. He is in agreement to this. He wants to do this in a couple of weeks when his schedule slows down. Risks, benefits, and alternatives were discussed. Risks include bleeding, infection, intestinal injury, possible laparotomy. He understands this fully. With laparoscopy, we will plan on repairing the umbilical hernia at the same time. Thank you for this referral. OTIS
== END 2018-08-18 11:55 | disposition home or self-care (01) ==
LOC: ER 01:30 → MEDSURG 03:42 → INTOOBSV 03:42
PROVIDERS: ADMIT Emergency Medicine; ATTEND Emergency Medicine
DX: K56.609 Unspecified intestinal obstruction, unspecified as to partial versus complete obstruction (principal); I10 Essential (primary) hypertension; J44.9 Chronic obstructive pulmonary disease, unspecified; E11.9 Type 2 diabetes mellitus without complications; K21.9 Gastro-esophageal reflux disease without esophagitis; M19.90 Unspecified osteoarthritis, unspecified site; Z87.891 Personal history of nicotine dependence; Z87.19 Personal history of other diseases of the digestive system
CPT/HCPCS: 99285 ×2; 96374; 96375; 96361; 83690; 80053; 81003; 85027; 74018; 74019; 74177; 94640 ×2; G0378 ×2; Q9967; J2405; J2270; 99217; 99220; J7030

== ENCOUNTER 2019-04-01 21:27 | Observation (INO) | payer MEDICARE, OTHER ==
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
[2019-04-01] MEDS ORDERED: MAGNESIUM HYDROXIDE/AL HYDROX 30 ML, LIDOCAINE VISC 2% 15ML 15 ML PO ONE ×2 (21:45)
[2019-04-01] MEDS ORDERED: MORPHINE SULFATE 5 MG/ML VIAL IVP ONE (21:46)
[2019-04-01 21:49] LABS: ABSOLUTE NEUTROPHIL COUNT 8.25; BASO % 0.7 % (0-6); EOS % 4.7 % (0-6); GRAN % 68.9 % (47-80); HEMATOCRIT 43.5 % (42.0-52.0); HEMOGLOBIN 14.5 gm/dl (14.0-18.0); LYMPH % 15.8 % (16-45); MEAN CELL VOLUME 92.6 fl (81-97); MEAN CORPUSCULAR HEMOGLOBIN 30.9 pg (27-33); MEAN CORPUSCULAR HGB CONC 33.3 g/dl (32-36); MEAN PLATELET VOLUME 10.1 fl (7.4-10.4); MONO % 9.9 % (0-9); PLATELET COUNT 268 K/uL (130-400); RED CELL DISTRIBUTION WIDTH 13.9 % (11.5-14.5)
[2019-04-01 21:59] LABS: BLOOD UREA NITROGEN 17 mg/dL (8-23); EST GLOMERULAR FILTRATION RATE > 60 mL/min; LIPASE 52 U/L (13-60); TOTAL PROTEIN 6.8 g/dL (6.6-8.7)
[2019-04-01 22:01] LABS: GLUCOSE,RANDOM 113 mg/dL (74-109)
[2019-04-01 22:04] LABS: ALBUMIN 4.4 g/dL (4.0-5.0); ALKALINE PHOSPHATASE 98 U/L (40-129); ALT/SGPT 40 U/L (<41); AST/SGOT 40 U/L (10.0-50.0)
[2019-04-01 22:07] LABS: PARTIAL THROMBOPLASTIN TIME 26.5 SECONDS (24.5-39.1); PROTHROMBIN TIME (PATIENT) 10.1 SECONDS (9.5-12.1)
[2019-04-01 22:08] LABS: BILIRUBIN,DIRECT < 0.2 mg/dL (0-0.3)
[2019-04-01] MEDS ORDERED: ACETAMINOPHEN 1,000 MG/100 ML BTL IVPB ONE (22:19)
[2019-04-01] MEDS ORDERED: SUCRALFATE 1 G/10 ML UD PO ONE (22:19)
[2019-04-01] MEDS ORDERED: HYDROMORPHONE HCL 2 MG/ML VIAL IVP ONE (22:54)
--- NOTE | 2019-04-01 23:24 | CT ANGIOGRAM REPORT ---
EXAMINATION: CT Angiography of the Thorax EXAM DATE: 04/01/2019 11:18 PM TECHNIQUE: Standard protocol CT angiogram images were obtained through the chest following the admini stration of intravenous contrast. Coronal and sagittal MIP 3-D reformations were performed. IV Contrast: The amount and type of contrast are recorded in the medical record. INDICATION: CP with radiation to back.. COMPARISON: Chest CT 07/20/2017, chest x-ray 10/26/2018 ENCOUNTER: Not applicable FINDINGS: Pulmonary Artery: No pulmonary embolism is present. Aorta: No thoracic aortic aneurysm or dissection is present. Right Heart Strain: None. Heart : The heart is not enlarged and there is no pericardial effusion. Severe coronary artery calci fication. Jessi and Mediastinum: No lymphadenopathy. Small hiatal hernia. Lung Parenchyma: Scattered punctate calcified granulomata. Normal. Central Airways: Normal. Pleural Effusion: None. Upper Abdomen: Unremarkable. Musculoskeletal and Chest Wall: Unremarkable. IMPRESSION: 1. No acute intrathoracic process with no PE or thoracic aortic dissection. Old granulomatous disease as before. 2. Severe coronary artery calcification. 3. Small hiatal hernia. Dictated by: Zeyad Jarvis MD on 04/01/2019 11:20 PM. .
[2019-04-01] MEDS ORDERED: ASPIRIN 325 MG TABLET PO ONE (23:57)
[2019-04-02] MEDS ORDERED: IPRATROPIUM/ALBUTEROL (0.5MG/3MG) NEB INH PRN (00:35)
[2019-04-02] MEDS ORDERED: LOVASTATIN 20 MG PO SCH (00:35)
[2019-04-02] MEDS ORDERED: ALBUTEROL HFA 8 GM INHALER INH PRN ×3 (00:35→08:45)
[2019-04-02] MEDS ORDERED: ACETAMINOPHEN 325 MG TAB PO PRN (00:35)
[2019-04-02] MEDS: PANTOPRAZOLE SODIUM 40 MG TABLET PO SCH (06:36)
[2019-04-02] MEDS ORDERED: MORPHINE SULFATE (PACU ONLY) 4 MG/ML VIAL IVP ONE (06:41)
[2019-04-02] MEDS ORDERED: MORPHINE SULFATE 5 MG/ML VIAL IVP ONE (06:41)
[2019-04-02] MEDS ORDERED: KETOROLAC 30 MG/ML VIAL IVP PRN (09:39)
[2019-04-02] MEDS ORDERED: ASPIRIN 325 MG TAB ENTERIC-COATED PO SCH (10:00)
[2019-04-02] MEDS: MORPHINE SULFATE 5 MG/ML VIAL IVP PRN ×2 (10:05→15:00)
--- NOTE | 2019-04-02 10:57 | History & Physical ---
History of Present Illness - Date of Service Date of Service for History & Physical: 04/02/19 - History of Present Illness Admitting Diagnosis: 1. Chest Pain, R/O MD. History of Present Illness: 68 yo male presents for sudden onset of left sided chest pain. Pt reports he was driving home from dinner, began having left upper chest pain that was sharp, inc reased pain with inspiration. Denies having any shortness of breath or tight/pressure pain. EKG NSR CTA neg for PE or aortic dissection, severe CAD/calcification PMH COPD, DM type 2 diet controlled, SBO, hernia repair. 04/01/19 21:29 Temperature 98.0 F Temperature Oral Source Pulse Rate [ 87 Negative Retoucher ] Respiratory 22 Rate Blood Pressure 182/98 [Left Arm] Blood Pressure 126 Mean [Left Arm] Pulse Ox 100 Oxygen Delivery Room Air Method Fraction of FIO2(%) Not Inspired Oxygen Applicable (FIO2) Pain Intensity 9 04/01/19 04/01/19 04/01/19 21:30 21:30 21:30 WBC 12.0 RBC 4.70 Hgb 14.5 Hct 43.5 MCV 92.6 MCH 30.9 MCHC 33.3 RDW 13.9 Plt Count 268 Absolute Neutrophils 8.25 PT 10.1 INR 1.0 APTT 26.5 D-Dimer 0.31 Sodium 141 Potassium 4.4 Chloride 101 Carbon Dioxide 26.0 Anion Gap 14.0 BUN 17 Creatinine 1.0 Estimated GFR > 60 Random Glucose 113 H Calcium 9.0 Total Bilirubin Direct Bilirubin AST ALT Alkaline Phosphatase Troponin T < 0.010 Total Protein Albumin Lipase 04/01/19 21:30 WBC RBC Hgb Hct MCV MCH MCHC RDW Plt Count Absolute Neutrophils PT INR APTT D-Dimer Sodium Potassium Chloride Carbon Dioxide Anion Gap BUN Creatinine Estimated GFR Random Glucose Calcium Total Bilirubin 0.30 Direct Bilirubin < 0.2 AST 40 ALT 40 Alkaline Phosphatase 98 Troponin T Total Protein 6.8 Albumin 4.4 Lipase 52 04/02/19 pt sitting EOB, reporting continued pain, morphine not helping much. Pain is not reproducible with palpation and still more painful with inspiration. VSS, trop neg x3, EKG change recently indicating potential pericarditis. ECHO ordered and card consult pending. CTA shows severe CAD with calcification. Will continue to monitor and await cardiology recommendations. pt given toradol for pain and reported some relief currently. PCP Hannah Hairston Travel Screening - Travel/Exposure Within Last 30 Days Have you traveled within the last 30 days?: No - Travel/Exposure Within Last Year Have you traveled outside the [place] in the last year?: No - Additonal Travel Details Have you been exposed to anyone with a communicable illness?: No - Travel Symptoms Symptom Screening: None Review of Systems Constitutional: Denies: Chills, Fever Eyes: Denies: Eye discharge ENT: Denies: Congestion, Throat pain Respiratory: Denies: Dyspnea Cardiovascular: Reports: Chest pain. Denies: Arrhythmia Endocrine: Denies: Fatigue Gastrointestinal: Denies: Nausea Genitourinary: Denies: Dysuria Musculoskeletal: Denies: Arthralgia Skin: Denies: Bruising Past Medical History - SOCIAL HISTORY Smoking Status: Former smoker Alcohol Use: None Drug Use: None - RESPIRATORY Hx Respiratory Disorders: Yes Hx Asthma: Yes Hx COPD: Yes Hx Sleep Apnea: Yes - CARDIOVASCULAR Hx Cardio Disorders: Yes Hx Hypertension: Yes Comment:: high cholesterol - NEURO Hx Neuro Disorders: Yes Hx Dizziness: Yes - GI Hx GI Disorders: Yes Hx Diverticulitis: Yes Hx GI Bleed: Yes (2011/) Hx Reflux: Yes - Hx Genitourinary Disorders: Yes Hx Prostate Problems: Yes - ENDOCRINE Hx Endocrine Disorders: No Hx Diabetes: Yes - MUSCULOSKELETAL Hx Musculoskeletal Disorders: Yes Hx Arthritis: Yes - PSYCH Hx Psych Problems: No Comment:: doesnt like being i confining spaces - HEMATOLOGY/ONCOLOGY Hx Hematology/Oncology Disorders: Yes Hx Blood Transfusions: Yes (2011) Comment:: pt states hx of internal bleeding Family Medical History Any Significant Family History?: Yes Hx Alcohol Use: Father Hx Diabetes: Mother Hx Heart Disease: Father Hx Liver Disease: Mother, Grandparents *Liver Comment: kendra, bile duct surgery H&P Meds/Allergies - Allergies Allergies: Allergies Allergy/AdvReac Type Severity Reaction Status Date / Time prednisone Allergy Unknown shakes Unverified 01/24/19 17:33 meloxicam [From Mobic] AdvReac Severe internal Unverified 01/24/19 17:33 bleeding dicyclomine HCl [From Bentyl] AdvReac Intermediate nausea and Unverified 01/24/19 17:33 vomiting levofloxacin [From Levaquin] AdvReac Intermediate nausea and Unverified 01/24/19 17:33 vomiting propoxyphene napsylate AdvReac Intermediate nausea and Unverified 01/24/19 17:33 [From Peña-N] vomiting simvastatin [From Zocor] AdvReac Intermediate muscle Unverified 01/24/19 17:33 aches - Active Medications Active Medications: Current Medications Acetaminophen (Tylenol 325mg) 650 mg PO Q6H PRN PRN Reason: PAIN - MILD(1-4)/FEVER Albuterol Sulfate (Ventolin Hfa) 2 puff INH RESP.Q4H PRN PRN Reason: BRONCHOSPASM Albuterol/Ipratropium (Duoneb) 3 ml INH Q4HR PRN PRN Reason: DIFFICULTY IN BREATHING Aspirin (Ecotrin (Ec)) 325 mg PO DAILY PENDING SALE TO [facility] Last Admin: 04/02/19 09:41 Dose: 325 mg Documented by: Ketorolac Tromethamine (Toradol) 15 mg IVP Q8H PRN PRN Reason: PAIN - MODERATE (5-7) Last Admin: 04/02/19 09:42 Dose: 15 mg Documented by: Morphine Sulfate (Morphine Sulfate) 4 mg IVP Q4H PRN PRN Reason: PAIN - SEVERE (8-10) Stop: 04/09/19 09:53 Last Admin: 04/02/19 10:05 Dose: 4 mg Documented by: [facility] Last Admin: 04/02/19 06:36 Dose: 40 mg Documented by: Advair 100/50 Mcg (Inhaler) 1 each INH BID PENDING SALE TO [facility] Physical Exam - Vital Signs Vital Signs: Vital Signs - Last 24 Hrs Temp Pulse Resp BP Pulse Ox 04/02/19 09:00 79 16 04/02/19 07:34 98.0 F 79 16 103/73 99 04/02/19 06:35 98.7 F 82 18 134/87 99 04/02/19 00:51 97.6 F 70 18 130/80 98 04/02/19 00:35 88 18 131/78 98 04/01/19 23:02 80 24 139/85 96 04/01/19 22:50 88 24 161/92 98 04/01/19 21:50 89 20 155/97 98 04/01/19 21:29 98.0 F 87 22 182/98 100 - General General Appearance: Alert, Oriented x3, Cooperative, No acute distress Limitations: No limitations - Head Head exam: Atraumatic, Normocephalic, Normal inspection - Eye Eye exam: Normal appearance, PERRL, EOMI - ENT Throat exam: Normal inspection. negative: Tonsillar erythema, Tonsillar exudate - Neck Neck exam: Normal inspection, Full ROM. negative: Tenderness - Respiratory Respiratory exam: Normal lung sounds bilaterally. negative: Chest wall t enderness, Respiratory distress - Cardiovascular Cardiovascular Exam: Regular rate, Normal rhythm, Normal heart sounds. negative: Diastolic murmur, Systolic murmur - GI/Abdominal GI/Abdominal exam: Soft, Normal bowel sounds. negative: Rebound, Rigid, Tenderness - Extremities Extremities exam: Normal inspection, Full ROM, Normal capillary refill. negative: Tenderness - Back Back exam: Reports: Normal inspection - Neurological Neurological exam: Alert, Normal gait. negative: Abnormal gait, Motor sensory deficit Results - Labs Result Diagrams: 04/01/19 21:30 04/01/19 21:30 Labs Last 24 Hours: Laboratory Results - last 24 hr 04/01/19 04/01/19 04/01/19 21:30 21:30 21:30 WBC 12.0 RBC 4.70 Hgb 14.5 Hct 43.5 MCV 92.6 MCH 30.9 MCHC 33.3 RDW 13.9 Plt Count 268 MPV 10.1 Gran % 68.9 Lymphocytes % 15.8 L Monocytes % 9.9 H Eosinophils % 4.7 Basophils % 0.7 Absolute Neutrophils 8.25 PT 10.1 INR 1.0 APTT 26.5 D-Dimer 0.31 Sodium 141 Potassium 4.4 Chloride 101 Carbon Dioxide 26.0 Anion Gap 14.0 BUN 17 Creatinine 1.0 Estimated GFR > 60 Random Glucose 113 H Calcium 9.0 Total Bilirubin Direct Bilirubin AST ALT Alkaline Phosphatase Troponin T < 0.010 Total Protein Albumin Lipase 04/01/19 04/01/19 04/02/19 21:30 23:30 06:52 WBC RBC Hgb Hct MCV MCH MCHC RDW Plt Count MPV Gran % Lymphocytes % Monocytes % Eosinophils % Basophils % Absolute Neutrophils PT INR APTT D-Dimer Sodium Potassium Chloride Carbon Dioxide Anion Gap BUN Creatinine Estimated GFR Random Glucose Calcium Total Bilirubin 0.30 Direct Bilirubin < 0.2 AST 40 ALT 40 Alkaline Phosphatase 98 Troponin T < 0.010 < 0.010 Total Protein 6.8 Albumin 4.4 Lipase 52 VTE H&P Assessment - Risk for VTE Risk for VTE: Yes Risk Level: Moderate Risk Assessment Date: 04/02/19 Risk Assessment Time: 11:42 VTE Orders Placed or Will Be Placed: Yes Plan - Detailed Diagnosis and Plan (1) Chest pain Current Visit: Yes Status: Acute Qualifiers: Chest pain type: unspecified Qualified Code(s): R07.9 - Chest pain, unspec ified Base Code: R07.9 - CHEST PAIN, UNSPECIFIED Comment: 04/02/19 -left upper chest pain, not reproducilbe -trop x3 neg, EKG shows changes that indicate pericarditis -repeat ECHO, cardilogy consult pending -VSS, morphine and toradol IVP for pain, cardiac tele continuous (2) DVT prophylaxis Current Visit: No Status: Acute Base Code: [id number] - Comment: 04/02/19 -up independent, start lovenox 40mg SQ if staying longer than 1 night (3) Full code status Current Visit: No Status: Acute Base Code: Z78.9 - OTHER SPECIFIED HEALTH STATUS Comment: 04/02/19 remained full code
[2019-04-02] MEDS: ADVAIR INH SCH ×2 (12:31→18:14)
[2019-04-02] MEDS ORDERED: COLCHICINE 0.6 MG TABLET PO ONE (13:12)
[2019-04-02] MEDS: IBUPROFEN 600 MG TABLET PO SCH ×3 (13:41→22:36)
[2019-04-02] MEDS ORDERED: POLYETHYLENE GLY 17 GM PACKET PO SCH (14:00)
[2019-04-02] MEDS ORDERED: AZITHROMYCIN 500 MG TABLET PO ONE (14:00)
[2019-04-03] MEDS: ADVAIR INH SCH (01:12)
[2019-04-03] MEDS: IBUPROFEN 600 MG TABLET PO SCH (07:00)
[2019-04-03] MEDS: PANTOPRAZOLE SODIUM 40 MG TABLET PO SCH (07:00)
--- NOTE | 2019-04-03 07:14 | Discharge Note ---
VTE H&P Assessment - Risk for VTE Risk for VTE: Yes Risk Level: Moderate Risk Assessment Date: 04/02/19 Risk Assessment Time: 11:42 VTE Orders Placed or Will Be Placed: Yes Discharge Medications - Discharge Medications Prescriptions: Colchicine [Colcrys] 0.6 mg PO DAILY 90 Days #90 tablet Ibuprofen [Motrin 600Mg] 600 mg PO Q8H #30 tablet Hydrocodone/Acetaminophen [[place] 5-325 Tablet] 1 each PO Q4H PRN 3 Days #18 tablet PRN Reason: Pain - Mod To Severe (5-10) Pravastatin Sodium [Pravachol] 40 mg PO DAILY 90 Days tablet Home Medications: Ambulatory Orders Omeprazole 20 mg PO DAILYAC 06/10/15 [Last Taken 04/01/19] Fexofenadine HCl [Vicky Allergy] 60 mg PO ASDIR 05/17/17 [Last Taken 04/01/19] Polyethylene Glycol 3350 [Miralax] 17 gm PO DAILY 07/20/17 [Last Taken 04/01/19] Colchicine [Colcrys] 0.6 mg PO DAILY 90 Days #90 tablet 04/02/19 [Last Taken Unknown] Hydrocodone/Acetaminophen [[place] 5-325 Tablet] 1 each PO Q4H PRN 3 Days #18 tablet 04/02/19 [Last Taken Unknown] Pravastatin Sodium [Pravachol] 40 mg PO DAILY 90 Days tablet 04/02/19 [Last Taken Unknown] Ibuprofen [Motrin 600Mg] 600 mg PO Q8H #30 tablet 04/03/19 [Last Taken Unknown] Discharge Note - Date Date of Discharge Note: 04/03/19 Disposition: Home, Self-Care Condition: (2) Stable Additional Instructions: Follow up appointment with NISHI Steward April 05 at 8:00am at [facility]. Stress test at [facility] at 11:00am. Please arrive at 10:45 with completed paperwork. Sign in with Registration at Main Entrance of hospital. Cardiology appointment with Dr. Blanc April 26 at 9:15am at [facility]. please use motrin 600 mg every 8 hours for pain only use norco for severe pain and don't fill if pain is controlled colchicine 0.6 mg daily pravachol 40 mg daily Prescriptions: Colchicine [Colcrys] 0.6 mg PO DAILY 90 Days #90 tablet Hydrocodone/Acetaminophen [[place] 5-325 Tablet] 1 each PO Q4H PRN 3 Days #18 tablet PRN Reason: Pain - Mod To Severe (5-10) Pravastatin Sodium [Pravachol] 40 mg PO DAILY 90 Days tablet Referrals: Hannah Hairston N.P. [Primary Care Provider] - Forms: Patient Portal Access Activity at Discharge: Increase Activity as Tolerated Diet at Discharge: Low Salt Diet
[2019-04-03 07:18] LABS: BLOOD UREA NITROGEN 16 mg/dL (8-23); CREATININE 0.8 mg/dL (0.7-1.2); EST GLOMERULAR FILTRATION RATE > 60 mL/min; GLUCOSE,RANDOM 102 mg/dL (74-109)
[2019-04-03 07:21] LABS: ABSOLUTE NEUTROPHIL COUNT 5.45; HEMATOCRIT 42.2 % (42.0-52.0); HEMOGLOBIN 13.6 gm/dl (14.0-18.0); MEAN CELL VOLUME 93.4 fl (81-97); MEAN CORPUSCULAR HGB CONC 32.2 g/dl (32-36); MEAN PLATELET VOLUME 10.6 fl (7.4-10.4); PLATELET COUNT 240 K/uL (130-400); RED BLOOD COUNT 4.52 M/uL (4.40-5.70); RED CELL DISTRIBUTION WIDTH 14.4 % (11.5-14.5); WHITE BLOOD COUNT W/O DIFF 8.9 K/uL (4.2-12.2)
[2019-04-03 08:11] LABS: ANISOCYTOSIS 1+; PLATELET ESTIMATE NORMAL (NORMAL); TOXIC GRANULATION 1+
[2019-04-03] MEDS ORDERED: ENOXAPARIN 40 MG/0.4 ML SYR SQ SCH (10:00)
[2019-04-03] MEDS ORDERED: COLCHICINE 0.6 MG TABLET PO SCH (10:00)
--- NOTE | 2019-04-03 11:26 | Cardiology Consult ---
DATE OF CONSULTATION: 04/02/2019 REASON FOR CONSULTATION: Chest pain. Mr. Joseph is a delightful 68-year-old gentleman who presented to the Emergency Department last night with complaints of chest pain that started yesterday. The patient reports that he was driving home from dinner and began having a left upper chest pain that was sharp and increased with inspiration. He denies any shortness of breath or tightness or pressure. He does not have any history of pulmonary artery disease. His pain was 10 out of 10 severely and since then has been going on and off and and at this point in time it is about 4 out of 10 in severity. His EKG initially did not show any acute changes and his cardiac biomarkers were within normal limits. Cardiology was consulted. The patient noted that after getting a Toradol injection his chest pain had gone down to 4 out of 10, however, it was unbearable previously. He denies any upper respiratory tract infection, but he tells me that he is very prone to getting them because of his history of smoking. The patient underwent a CT of his chest to evaluate for dissection as well as pulmonary embolism, both of these were ruled out, however, the patient was found to have significant calcification in his coronaries. The patient denies any alcohol use or cigarette smoking. ALLERGIES: THE PATIENT IS ALLERGIC TO PREDNISONE, MELOXICAM, DICYCLOMINE, LEVOFLOXACIN, PROPOXYPHENE, AND SIMVASTATIN. PHYSICAL EXAMINATION: Mr. Joseph is laying comfortably in bed not in any apparent distress and is alert and oriented times three. He is cooperative. HEENT: He is normocephalic, atraumatic. Pupils are equal and reactive to light. Extraocular muscles are intact. NECK: Supple. CARDIOVASCULAR: He has normal S1, S2. No JVD. No pedal edema. LUNGS: Clear to auscultation bilaterally. NEUROLOGICAL: Nonfocal. ASSESSMENT AND PLAN: THE PATIENT HAS SLIGHT LEUKOCYTOSIS WITH A WHITE COUNT OF 12.0 AND HEMOGLOBIN OF 14.5 WITH A HEMATOCRIT OF 43.5 AND PLATELET COUNT OF 268. ELECTROLYTES, LIVER FUNCTION AND HEPATIC FUNCTION ARE ALL WITHIN NORMAL LIMITS. THE PATIENT'S SYMPTOMS ARE CLASSIC FOR PERICARDITIS AND A REPEAT EKG DOES SHOW CHANGES CONSISTENT WITH PERICARDITIS. ECHOCARDIOGRAPHY SHOWS NORMAL LV FUNCTION AND NO PENITENTIARY ABNORMALITIES. THE FACT THAT HIS CHEST PAIN IS RELIEVED BY LEANING FORWARD AND AGGRAVATES BY LYING BACK ESPECIALLY WITHOUT A PILLOW. THE PATIENT'S CLASSIC SYMPTOMS OF PERICARDITIS WHILE BEING TREATED AGGRESSIVELY WITH NONSTEROIDAL ANTIINFLAMMATORIES WELL COLCHICINE. I AM GOING TO START HIM ON IBUPROFEN 600 MG T.I.D. ON A FULL STOMACH AND THEN WE WILL START HIM ON COLCHICINE 0.6 MG B.I.D FOR THREE MONTHS. GIVEN HIS RISK FACTORS WELL CORONARY ARTERY CALCIFICATIONS SEEN ON CTA, I WOULD RECOMMEND DOING A STRESS TEST AN OUTPATIENT. THE PATIENT SHOULD BE KEPT IN THE HOSPITAL TODAY FOR PAIN MANAGEMENT. Thank you for involving me in the management of your patient. OTIS
--- NOTE | 2019-04-03 12:51 | Discharge Summary ---
DATE: DISCHARGE DIAGNOSES: 1. Acute pericarditis. 2. Hypercholesterolemia. 3. Hypertension. 4. Asthma. 5. Arthritis. 6. Former smoker. ATTENDING PHYSICIAN: Roque Hickey DO REASON FOR HOSPITALIZATION: Chest pain. This 68-year-old male presented to the emergency department with left-sided chest pain that began after eating in [place]. While driving back from [place], he had a sharp stabbing pain intermittently radiating to his back. The pain is worse with deep breathing. He is having epigastric indigestion. He denies any shortness of breath, dyspnea, or sweating with the pain. He denies any history of cardiac issues but has had a lot of abdominal problems. He was seen in the emergency department by Dr. May, admitted to the hospital for chest pain evaluation. SIGNIFICANT FINDINGS: EKG showing diffuse ST elevation consistent with pericarditis. Troponins were negative x3. Echocardiogram was done. Normal ejection fraction. No pericardial effusion seen. WBC 12,000, hemoglobin 14.5, D- dimer was normal at 0.31. Cardiology consult was obtained with Dr. Blanc for diagnosis of pericarditis. He was started colchicine. Hannah told me that the dose was adjusted because of kidney concerns. He is going home with colchicine 0.6 mg daily. He was also placed on Motrin 600 mg scheduled, which seemed to be helping dramatically. He is much better on the day of discharge, so I will give him a prescription for Motrin even though I am concerned, could have GI complaints, problems with this. Just use it as needed for pain control. He was also given a prescription for [place] if his pain bounced back up but at this point, I do not think he will need the [place]. He was switched over to pravastatin for his cholesterol, 40 mg once a day. Hannah Hairston took care of him and I saw him on the day of discharge. He is feeling much better. He is scheduled to see Dr. Blanc on 04/26/2019. He is seeing Hannah Hairston on 04/05/2019, in 2 days. CONDITION ON DISCHARGE: Much improved. DISCHARGE INSTRUCTIONS: Follow up with Hannah Hairston as scheduled in 2 days. Follow up with Dr. Blanc as scheduled in April. Stress test will be done on . The appointment with Dr. Blanc is on 04/26/2019. [facility]
[2019-04-04] MEDS ORDERED: COLCHICINE 0.6 MG TABLET PO SCH (10:00)
[2019-04-04] MEDS ORDERED: AZITHROMYCIN 500 MG TABLET PO SCH (10:00)
== END 2019-04-03 09:30 | disposition home or self-care (01) ==
LOC: ER 21:27 → MEDSURG 04-02 00:32
PROVIDERS: ADMIT Internal Medicine; ATTEND Internal Medicine
DX: R07.9 Chest pain, unspecified (principal); J44.9 Chronic obstructive pulmonary disease, unspecified; I10 Essential (primary) hypertension; E11.9 Type 2 diabetes mellitus without complications; G47.33 Obstructive sleep apnea (adult) (pediatric); K21.9 Gastro-esophageal reflux disease without esophagitis; M19.90 Unspecified osteoarthritis, unspecified site; Z87.891 Personal history of nicotine dependence
CPT/HCPCS: 71275; 80048; 80076; 83690; 84484; 85025; 85027; 85379; 85610; 85730; 93005; 93010; 93306; 94640; 94664; 96365; 96374; 96375; 99217; 99220; 99285; J1885